=== PATIENT | male | born 1960 | race Caucasian/White ===

== ENCOUNTER 2021-09-03 09:14 | Outpatient (REF) | payer OTHER, SELFPAY ==
--- NOTE | ~2021-09-03 | XR_ITS ---
EXAMINATION: XR SHOULDER, LEFT CLINICAL INFORMATION: Left shoulder pain COMPARISON: None TECHNIQUE: AP external rotation, Grashey, scapular Y, and axillary views of the left shoulder. FINDINGS: The bones and soft tissues are normal. No fracture. Glenohumeral and acromioclavicular alignment is anatomic with normal joint space. No abnormal soft tissue calcifications. XR/XR shoulder LT min 2V IMPRESSION: Unremarkable left shoulder.
[2021-09-03 09:53] LABS: MANUAL DIFF FLAG NO
[2021-09-03 10:05] LABS: Basophils Absolute Auto 0.1 X10*3/uL (0.0-0.2); Basophils Percent Auto 1.3 % (0-2); Eosinophils Absolute Auto 0.2 X10*3/uL (0.0-0.4); Eosinophils Percent Auto 3.8 % (0-4); Hematocrit 42.1 % (42.0-52.0); Hemoglobin 14.5 g/dl (14.0-18.0); Imm Gran Abs Auto 0.02 X10*3/uL (0.00-0.03); Imm Gran Pct Auto 0.3 % (0.0-0.4); Lymphocytes Absolute Auto 1.2 X10*3/uL (1.2-4.9); Lymphocytes Percent Auto 20.3 % (20-40); Mean Corpuscular HGB Conc 34.4 g/dl (31.0-36.0); Mean Corpuscular Hemoglobin 33.2 pg (27.0-33.0); Mean Corpuscular Volume 96.3 fL (80.0-98.0); Mean Platelet Volume 9.5 fL (9.4-12.4); Monocytes Absolute Auto 0.4 X10*3/uL (0.1-1.2); Monocytes Percent Auto 6.1 % (2-11); Neutrophils Absolute Auto 4.1 x10*3/uL (2.0-8.3); Neutrophils Percent Auto 68.2 % (45-73); Platelet Count 167 X10*3/uL (160-400); Red Blood Count 4.37 X10*6/uL (4.60-5.80); Red Cell Distribution Width 12.2 % (11.0-16.0); White Blood Count 6.1 X10*3/uL (4.8-10.8)
[2021-09-03 10:28] LABS: Estimated Average Glucose 137 mg/dL; Hemoglobin A1c % 6.4 %
[2021-09-03 11:00] LABS: Appearance Urine CLEAR; Color Urine YELLOW; Glucose Urine UA NEG (NEG); Leukocyte Esterase Urine NEG (NEG); Nitrite Urine NEG (NEG); PH 5.5 (5.0-8.0); Specific Gravity - Urine >= 1.030 (1.005-1.025); Urine Blood NEG (NEG); Urine Ketones NEG (NEG); Urine Protein NEG (NEG-TRACE)
[2021-09-03 11:00] LABS: Alanine Aminotransferase 33 U/L (0-40); Albumin Level 4.6 g/dL (3.5-5.0); Alkaline Phosphatase 58 U/L (39-117); Anion Gap 16 (12-20); Aspartate Amino Transferase 27 U/L (5-37); Bilirubin Total 0.7 mg/dL (0.0-1.0); Blood Urea Nitrogen 7 mg/dL (9-16); Calcium 10.1 mg/dL (8.4-10.2); Carbon Dioxide 24 mmol/L (22-29); Chloride 103 mmol/L (96-108); Cholesterol 260 mg/dL; Estimated Glomerular Filt Rate > 60; Glucose Fasting 123 mg/dL (60-99); HDL Cholesterol 69 mg/dL; LDL Cholesterol Calculated 163 mg/dl; Potassium 4.8 mmol/L (3.3-5.1); Sodium 138 mmol/L (135-145); Total Protein 7.9 g/dL (6.5-8.0); Triglycerides 140 mg/dL
[2021-09-03 11:18] LABS: Vitamin B12 283 pg/mL (200-900)
[2021-09-03 11:22] LABS: Prostate Specific Antigen 1.35 ng/mL (<0.05-4.0)
[2021-09-03 12:22] LABS: Creatinine Urine 125.99 mg/dL; Microalbum/Creatinine Ratio Ur 22.2 ug/mg cr
== END 2021-09-03 09:15 | disposition home or self-care (01) ==
LOC: HO.XRAY 09:14
PROVIDERS: PCP Internal Medicine; Visit Provider Internal Medicine
DX: E11.9 Type 2 diabetes mellitus without complications (principal); I10 Essential (primary) hypertension; K21.9 Gastro-esophageal reflux disease without esophagitis; M25.512 Pain in left shoulder; Z12.5 Encounter for screening for malignant neoplasm of prostate
CPT/HCPCS: 36415; 73030; 80053; 80061; 81003; 82043; 82607; 83036; 84153; 85025

== ENCOUNTER 2021-09-17 13:52 | Outpatient (REF) | payer OTHER, SELFPAY ==
--- NOTE | ~2021-09-17 | XR_ITS ---
EXAMINATION: XR FOOT, BILATERAL CLINICAL INFORMATION: Assess for osteoarthritis. Degenerative changes right foot. Calcific bursitis left foot. COMPARISON: None. TECHNIQUE: 3 views each foot. FINDINGS: Right Foot: There is no visible acute fracture, dislocation or subluxation. The ankle mortise and subtalar joints are normal. There is dorsal tarsometatarsal spurring. No bony erosive changes seen. The soft tissues are normal. Left Foot: There is 1st tarsometatarsal spurring with subchondral cystic changes and loss of joint space suggestive of degenerative arthritis. The ankle mortise and subtalar joints are normal. There is a small calcification posterior to the ankle mortise likely calcific bursitis. No acute fracture or dislocations. XR/XR foot LT min 3V IMPRESSION: Mild degenerative changes right foot with dorsal tarsometatarsal spurring. Calcific bursitis left foot. Degenerative arthritic changes 1st tarsometatarsal joint. No acute fracture or dislocation in either foot.
--- NOTE | ~2021-09-17 | XR_ITS ---
EXAMINATION: XR FOOT, BILATERAL CLINICAL INFORMATION: Assess for osteoarthritis. Degenerative changes right foot. Calcific bursitis left foot. COMPARISON: None. TECHNIQUE: 3 views each foot. FINDINGS: Right Foot: There is no visible acute fracture, dislocation or subluxation. The ankle mortise and subtalar joints are normal. There is dorsal tarsometatarsal spurring. No bony erosive changes seen. The soft tissues are normal. Left Foot: There is 1st tarsometatarsal spurring with subchondral cystic changes and loss of joint space suggestive of degenerative arthritis. The ankle mortise and subtalar joints are normal. There is a small calcification posterior to the ankle mortise likely calcific bursitis. No acute fracture or dislocations. XR/XR foot RT min 3V IMPRESSION: Mild degenerative changes right foot with dorsal tarsometatarsal spurring. Calcific bursitis left foot. Degenerative arthritic changes 1st tarsometatarsal joint. No acute fracture or dislocation in either foot.
== END 2021-09-17 13:53 | disposition home or self-care (01) ==
LOC: HO.XRAY 13:52
PROVIDERS: PCP Internal Medicine; Visit Provider Internal Medicine
DX: E11.40 Type 2 diabetes mellitus with diabetic neuropathy, unspecified (principal); M21.969 Unspecified acquired deformity of unspecified lower leg
CPT/HCPCS: 73630

== ENCOUNTER → 2021-10-21 09:12 | Outpatient (BNVA) | payer OTHER, SELFPAY | PROVIDERS: PCP Internal Medicine; Visit Provider Physician Assistant | DX: M75.102 Unspecified rotator cuff tear or rupture of left shoulder, not specified as traumatic (principal); M67.919 Unspecified disorder of synovium and tendon, unspecified shoulder | CPT/HCPCS: 99202 ==

== ENCOUNTER 2021-10-21 11:18 | Emergency (ER) | payer OTHER, SELFPAY ==
--- NOTE | 2021-10-21 | ECG_ITS ---
Test Reason : dizzy Blood Pressure : / mmHG Vent. 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 rate has decreased BY 50 BPM Minimal criteria for Inferior infarct are no longer Present Non-specific change in ST segment in Inferior leads T wave amplitude has decreased in Anterior leads T wave amplitude has increased in Lateral leads Referred By: Generic ED Physician Electronically Signed By:NOREEN GUAMAN MD
--- NOTE | ~2021-10-21 | CT_ITS ---
EXAMINATION: CT HEAD WITHOUT CONTRAST CLINICAL INFORMATION: Ataxia. COMPARISON: CT head 12/03/2018 TECHNIQUE: Contiguous axial imaging was performed from the skull base to vertex without intravenous administration of contrast. This CT examination was performed using dose optimization techniques as appropriate, variously including the following: *Automated exposure control *Adjustment of mA and/or kV according to patient size (this includes techniques or standardized protocols for targeted exams where dose is matched to indication/reason for exam; i.e. extremities or head) *Use of iterative reconstruction technique DLP: 715 mGy-cm FINDINGS: There is no evidence of acute intracranial hemorrhage or territorial infarction. No abnormal mass effect or midline shift is seen. Pedraza to white matter differentiation is well preserved. No extra-axial fluid collections are identified. There is generalized global volume loss. There is moderate prominence of the ventricles and the sulci . There is mild hypodensity of the periventricular white matter due to chronic small vessel ischemic disease. There are vascular calcifications of the internal carotid arteries bilaterally. The osseous structures and soft tissues are normal. The mastoid air cells and visualized portions of the paranasal sinuses are well aerated. CT/CT head/brain wo con IMPRESSION: No acute intracranial pathology.
[2021-10-21 11:25] VITALS: BP 159/74; PULSE 88; RESP 20; TEMP 36.2; O2SAT 98; BMI 26.8
[2021-10-21 12:19] LABS: Glucose, Whole Blood 106 mg/dL (60-115)
[2021-10-21 15:18] LABS: MANUAL DIFF FLAG NO
[2021-10-21 15:23] LABS: Basophils Percent Auto 0.6 % (0-2); Eosinophils Absolute Auto 0.1 X10*3/uL (0.0-0.4); Eosinophils Percent Auto 1.8 % (0-4); Hematocrit 41.9 % (42.0-52.0); Hemoglobin 14.7 g/dl (14.0-18.0); Imm Gran Abs Auto 0.03 X10*3/uL (0.00-0.03); Imm Gran Pct Auto 0.4 % (0.0-0.4); Lymphocytes Absolute Auto 1.2 X10*3/uL (1.2-4.9); Lymphocytes Percent Auto 17.5 % (20-40); Mean Corpuscular HGB Conc 35.1 g/dl (31.0-36.0); Mean Corpuscular Hemoglobin 34.3 pg (27.0-33.0); Mean Corpuscular Volume 97.7 fL (80.0-98.0); Mean Platelet Volume 9.2 fL (9.4-12.4); Monocytes Absolute Auto 0.4 X10*3/uL (0.1-1.2); Monocytes Percent Auto 6.6 % (2-11); Neutrophils Absolute Auto 4.9 x10*3/uL (2.0-8.3); Neutrophils Percent Auto 73.1 % (45-73); Platelet Count 147 X10*3/uL (160-400); Red Blood Count 4.29 X10*6/uL (4.60-5.80); Red Cell Distribution Width 12.5 % (11.0-16.0); White Blood Count 6.7 X10*3/uL (4.8-10.8)
[2021-10-21 15:32] LABS: Anion Gap 16 (12-20); Blood Urea Nitrogen 7 mg/dL (9-16); Calcium 9.4 mg/dL (8.4-10.2); Carbon Dioxide 24 mmol/L (22-29); Chloride 99 mmol/L (96-108); Creatinine Clr Calc Pharmacy 117.9; Estimated Glomerular Filt Rate > 60; Glucose Random 89 mg/dL (60-115); Potassium 4.1 mmol/L (3.3-5.1); Sodium 135 mmol/L (135-145)
[2021-10-21 16:22] VITALS: BP 202/92; PULSE 95; RESP 18; TEMP 36.6; O2SAT 97
--- NOTE | 2021-10-21 16:24 | ED.GENADULT ---
HPI - General Adult General Chief complaint: Dizziness Stated complaint: Feet numbness/Dizzy Time Seen by Provider: 10/21/21 12:33 Source: patient Mode of arrival: ambulatory Limitations: no limitations History of Present Illness HPI narrative: Patient alcoholic drinks alcohol almost every other day , history of diabetes comes here for numbness in the feet which is also going on for long time having dizziness episode feels little off and weak patient had history of seizure about 4 years ago workup the hospital was negative and never seen a neurologist or took any medication feels little off today with nonspecific dizziness and difficulty in walking. Patient walks with walker for chronic weakness but can walk without walker also Related Data Home Medications Medication Instructions Recorded Confirmed amlodipine 5 mg tablet 5 mg PO DAILY 10/21/21 10/21/21 atorvastatin 10 mg tablet 10 mg PO DAILY 10/21/21 10/21/21 metformin 500 mg tablet 500 mg PO BID 10/21/21 10/21/21 metoprolol succinate 50 mg 50 mg PO DAILY 10/21/21 10/21/21 tablet,extended release 24 hr omeprazole 20 mg capsule,delayed 20 mg PO DAILY 10/21/21 10/21/21 release Previous Rx's Medication Instructions Recorded folic acid 1 mg tablet 1 mg PO DAILY #30 tab 10/21/21 gabapentin 300 mg capsule 300 mg PO BID #60 cap 10/21/21 thiamine HCl (vitamin B1) 50 mg 50 mg PO DAILY #30 tab 10/21/21 tablet Allergies Allergy/AdvReac Type Severity Reaction Status Date / Time bee pollen [BEE STINGS] Allergy Intermediate SWELLING Unverified 03/01/20 18:37 polyethylene glycol Allergy Unknown Verified 01/04/15 00:00 [Golytely] polyethylene glycol 3350 Allergy Unknown Verified 01/04/15 00:00 [Golytely] potassium chloride [Golytely] Allergy Unknown Verified 01/04/15 00:00 sodium [Golytely] Allergy Unknown Verified 01/04/15 00:00 sodium bicarbonate [Golytely] Allergy Unknown Verified 01/04/15 00:00 sodium chloride [Golytely] Allergy Unknown Verified 01/04/15 00:00 sodium sulfate [Golytely] Allergy Unknown Verified 01/04/15 00:00 Review of Systems Review of Systems: Yes all other systems are reviewed and are negative PMFSH Past Medical History Medical History Diabetes GERD (gastroesophageal reflux disease) Surgical History Hx of pelvic surgery Social History Social History Patient Tobacco Use Status: Never used Tobacco Advance Directives: No Advance Directives Information Provided: No Current occupational status: unemployed 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 Oriented X3. No acute distress. Eyes: PERRLA, No Nystagmus ENT: Pharynx normal. Oral Mucosa moist Neck: Normal inspection. Neck supple. CVS: Normal heart rate and rhythm. Pulses normal. Respiratory: No respiratory distress. Equal air entry bilateral, no wheezing/rales/rhonchi Abdomen: Soft and nontender. Bowel sounds are present, no mass palpable, no CVA tenderness Skin: Skin warm and dry. Normal skin color. Normal skin turgor. Extremities: No lower extremity edema. No calf tenderness Neuro: Oriented X 3. No motor deficit. No sensory deficit. 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 Result diagrams: 10/21/21 15:12 10/21/21 15:12 Labs: Lab Results 10/21/21 10/21/21 10/21/21 Range/Units 11:38 15:12 15:12 WBC 6.7 (4.8-10.8) X10*3/uL RBC 4.29 L (4.60-5.80) X10*6/uL Hgb 14.7 (14.0-18.0) g/dl Hct 41.9 L (42.0-52.0) % MCV 97.7 (80.0-98.0) fL MCH 34.3 H (27.0-33.0) pg MCHC 35.1 (31.0-36.0) g/dl RDW 12.5 (11.0-16.0) % Plt Count 147 L (160-400) X10*3/uL MPV 9.2 L (9.4-12.4) fL Immature Gran % (Auto) 0.4 (0.0-0.4) % Neut % (Auto) 73.1 H (45-73) % Lymph % (Auto) 17.5 L (20-40) % Wagoner % (Auto) 6.6 (2-11) % Eos % (Auto) 1.8 (0-4) % Baso % (Auto) 0.6 (0-2) % Lymph # (Auto) 1.2 (1.2-4.9) X10*3/uL Wagoner # (Auto) 0.4 (0.1-1.2) X10*3/uL Eos # (Auto) 0.1 (0.0-0.4) X10*3/uL Baso # (Auto) 0.0 (0.0-0.2) X10*3/uL Abs Immat Gran (auto) 0.03 (0.00-0.03) X10*3/uL Absolute Neuts (auto) 4.9 (2.0-8.3) x10*3/uL Absolute Nucleated RBC 0.000 (0.0-0.012) X10*3/uL Nucleated RBC % (auto) 0.0 (0.0-0.2) /100WBC Sodium 135 (135-145) mmol/L Potassium 4.1 (3.3-5.1) mmol/L Chloride 99 (96-108) mmol/L Carbon Dioxide 24 (22-29) mmol/L Anion Gap 16 (12-20) BUN 7 L (9-16) mg/dL Creatinine 0.74 (0.5-1.4) mg/dL Estim Creat Clear Calc 117.9 Estimated GFR > 60 POC Glucose 106 (60-115) mg/dL Random Glucose 89 (60-115) mg/dL Calcium 9.4 D (8.4-10.2) mg/dL Magnesium 1.6 (1.6-2.6) mg/dL Total Bilirubin 0.9 (0.0-1.0) mg/dL Direct Bilirubin 0.4 (0.0-0.5) mg/dL AST 26 (5-37) U/L ALT 32 (0-40) U/L Alkaline Phosphatase 64 (39-117) U/L Total Protein 7.7 (6.5-8.0) g/dL Albumin 4.5 (3.5-5.0) g/dL COVID-19 ([facility]) (Negative) COVID-19 Clin Com 10/21/21 Range/Units 17:06 WBC (4.8-10.8) X10*3/uL RBC (4.60-5.80) X10*6/uL Hgb (14.0-18.0) g/dl Hct (42.0-52.0) % MCV (80.0-98.0) fL MCH (27.0-33.0) pg MCHC (31.0-36.0) g/dl RDW (11.0-16.0) % Plt Count (160-400) X10*3/uL MPV (9.4-12.4) fL Immature Gran % (Auto) (0.0-0.4) % Neut % (Auto) (45-73) % Lymph % (Auto) (20-40) % Wagoner % (Auto) (2-11) % Eos % (Auto) (0-4) % Baso % (Auto) (0-2) % Lymph # (Auto) (1.2-4.9) X10*3/uL Wagoner # (Auto) (0.1-1.2) X10*3/uL Eos # (Auto) (0.0-0.4) X10*3/uL Baso # (Auto) (0.0-0.2) X10*3/uL Abs Immat Gran (auto) (0.00-0.03) X10*3/uL Absolute Neuts (auto) (2.0-8.3) x10*3/uL Absolute Nucleated RBC (0.0-0.012) X10*3/uL Nucleated RBC % (auto) (0.0-0.2) /100WBC Sodium (135-145) mmol/L Potassium (3.3-5.1) mmol/L Chloride (96-108) mmol/L Carbon Dioxide (22-29) mmol/L Anion Gap (12-20) BUN (9-16) mg/dL Creatinine (0.5-1.4) mg/dL Estim Creat Clear Calc Estimated GFR POC Glucose (60-115) mg/dL Random Glucose (60-115) mg/dL Calcium (8.4-10.2) mg/dL Magnesium (1.6-2.6) mg/dL Total Bilirubin (0.0-1.0) mg/dL Direct Bilirubin (0.0-0.5) mg/dL AST (5-37) U/L ALT (0-40) U/L Alkaline Phosphatase (39-117) U/L Total Protein (6.5-8.0) g/dL Albumin (3.5-5.0) g/dL COVID-19 ([facility]) Negative (Negative) COVID-19 Clin Com See Note Discharge Plan Discharge Clinical Impression: Peripheral neuropathy, Alcohol use disorder, moderate, dependence Patient Disposition: Home, Self-Care Instructions: Abuse of Alcohol (ED), Peripheral Neuropathy (ED) Additional Instructions: Stop drinking alcohol Medication as prescribed Follow-up with neurologist Prescriptions: New gabapentin 300 mg capsule 300 mg PO BID Qty: 60 0RF thiamine HCl (vitamin B1) 50 mg tablet 50 mg PO DAILY Qty: 30 0RF folic acid 1 mg tablet 1 mg PO DAILY Qty: 30 0RF No Action metformin 500 mg tablet 500 mg PO BID 0RF atorvastatin 10 mg tablet 10 mg PO DAILY 0RF amlodipine 5 mg tablet 5 mg PO DAILY 0RF omeprazole 20 mg capsule,delayed release(DR/EC) 20 mg PO DAILY 0RF metoprolol succinate 50 mg tablet extended release 24 hr 50 mg PO DAILY 0RF Referrals: Alfie Lopez MD [Physician] - 2 weeks (neuropathy)
--- NOTE | 2021-10-21 16:28 | PC.NURSE ---
upon meeting pt , pt having difficulty finding words, confused on why he is here. pt denies dizziness. 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 able to lift bother lower extremities.MD franco notified. pt huypertensive states that he took his medications this morning. denies alcohol consumption today or yesterday. denies recent falls
--- NOTE | 2021-10-21 16:37 | PC.NURSE ---
pt states, im sick of being sore when asked what brought him to ER, pt again says im sore, my shoulder, my feet all hurt. this RN asked pt again if he knows what brought him to er. pt now states he is in the ER for bloodwork
[2021-10-21 17:13] LABS: Alanine Aminotransferase 32 U/L (0-40); Albumin Level 4.5 g/dL (3.5-5.0); Alkaline Phosphatase 64 U/L (39-117); Aspartate Amino Transferase 26 U/L (5-37); Bilirubin Direct 0.4 mg/dL (0.0-0.5); Bilirubin Total 0.9 mg/dL (0.0-1.0); Magnesium 1.6 mg/dL (1.6-2.6); Total Protein 7.7 g/dL (6.5-8.0)
[2021-10-21 17:28] LABS: COVID-19 Test Negative (Negative)
[2021-10-21 17:40] VITALS: PULSE 92; RESP 12; O2SAT 98
[2021-10-21 17:45] VITALS: BP 176/100; PULSE 96; RESP 11; O2SAT 98
[2021-10-21] MEDS: Folic Acid 1 MG TABLET PO (17:49)
[2021-10-21] MEDS: Thiamine HCL 100 MG TABLET 50 MG PO (17:49)
--- NOTE | 2021-10-21 18:25 | PC.NURSE ---
pt ambulated to BR independently with steady gait, denies dizziness
[2021-10-22 05:51] LABS: Folate 15.2 ng/mL (> or = 4.0); Vitamin B12 327 pg/mL (200-900)
== END 2021-10-21 18:32 | disposition home or self-care (01) ==
PROVIDERS: Emergency Provider Internal Medicine; PCP Internal Medicine
DX: E11.42 Type 2 diabetes mellitus with diabetic polyneuropathy (principal); F10.20 Alcohol dependence, uncomplicated; Y90.9 Presence of alcohol in blood, level not specified; Z20.822 Contact with and (suspected) exposure to COVID-19
CPT/HCPCS: 36415; 70450; 80048; 80076; 82607; 82746; 82947; 83735; 85025; 87635; 93005; 99284

== ENCOUNTER 2022-05-23 14:39 | Emergency (ER) | payer OTHER, SELFPAY ==
--- NOTE | ~2022-05-23 | XR_ITS ---
EXAMINATION: BILATERAL HIPS. BILATERAL RIBS. LEFT SHOULDER. CLINICAL INFORMATION: Pain. Pain. Pain COMPARISON: None TECHNIQUE: 3 views of the hips. 5 views of the ribs and 3 views of the left shoulder. FINDINGS: Hips: Chronic changes to the bony pelvis in the region of the ischium are again seen and there is postsurgical change in the region of the sacrum and SI joints with surgical hardware intact. There is mild degenerative change in both hips but in both hips, no evidence for erosive change, fracture, dislocation or destructive lesion. Bilateral RIBS: Lungs clear. No pneumothorax. Heart and pulmonary vessels are normal. There appear to be several old healed left and right rib fractures but no evidence for an acute fracture or acute destructive process. Left shoulder: No fracture, dislocation or destructive process. XR/XR hips SYLVESTER min 3V IMPRESSION: Chronic changes noted. No evidence for an acute fracture.
--- NOTE | ~2022-05-23 | XR_ITS ---
EXAMINATION: BILATERAL HIPS. BILATERAL RIBS. LEFT SHOULDER. CLINICAL INFORMATION: Pain. Pain. Pain COMPARISON: None TECHNIQUE: 3 views of the hips. 5 views of the ribs and 3 views of the left shoulder. FINDINGS: Hips: Chronic changes to the bony pelvis in the region of the ischium are again seen and there is postsurgical change in the region of the sacrum and SI joints with surgical hardware intact. There is mild degenerative change in both hips but in both hips, no evidence for erosive change, fracture, dislocation or destructive lesion. Bilateral RIBS: Lungs clear. No pneumothorax. Heart and pulmonary vessels are normal. There appear to be several old healed left and right rib fractures but no evidence for an acute fracture or acute destructive process. Left shoulder: No fracture, dislocation or destructive process. XR/XR ribs BI min 4V w CXR1V IMPRESSION: Chronic changes noted. No evidence for an acute fracture.
--- NOTE | ~2022-05-23 | XR_ITS ---
EXAMINATION: BILATERAL HIPS. BILATERAL RIBS. LEFT SHOULDER. CLINICAL INFORMATION: Pain. Pain. Pain COMPARISON: None TECHNIQUE: 3 views of the hips. 5 views of the ribs and 3 views of the left shoulder. FINDINGS: Hips: Chronic changes to the bony pelvis in the region of the ischium are again seen and there is postsurgical change in the region of the sacrum and SI joints with surgical hardware intact. There is mild degenerative change in both hips but in both hips, no evidence for erosive change, fracture, dislocation or destructive lesion. Bilateral RIBS: Lungs clear. No pneumothorax. Heart and pulmonary vessels are normal. There appear to be several old healed left and right rib fractures but no evidence for an acute fracture or acute destructive process. Left shoulder: No fracture, dislocation or destructive process. XR/XR shoulder LT min 2V IMPRESSION: Chronic changes noted. No evidence for an acute fracture.
[2022-05-23 15:32] VITALS: BP 169/82; PULSE 88; RESP 16; TEMP 36.6; O2SAT 97; BMI 28.5
--- NOTE | 2022-05-23 16:10 | ED.FALL ---
HPI - Fall General Chief Complaint: Fall Stated Complaint: ? Fx Ribs S/P Fall 05/23/22 Time Seen by Provider: 05/23/22 16:02 Source: patient Mode of arrival: ambulatory Limitations: no limitations History of Present Illness HPI Narrative: Patient comes to the emergency room complaining of bilateral rib pain, worse on the left side. Patient states that early this morning, he was walking, tripped on a sidewalk with uneven pavement. Patient states that he fell forward, did not hit his head, did not lose consciousness, does not take any blood thinners. Patient states that he has mild bilateral hip pain, patient states he has had extensive surgery in his hips in the past. However, patient has been able to walk. Related Data Home Medications Medication Instructions Recorded Confirmed amlodipine 5 mg tablet 5 mg PO DAILY 10/21/21 10/21/21 atorvastatin 10 mg tablet 10 mg PO DAILY 10/21/21 10/21/21 metformin 500 mg tablet 500 mg PO BID 10/21/21 10/21/21 metoprolol succinate 50 mg 50 mg PO DAILY 10/21/21 10/21/21 tablet,extended release 24 hr omeprazole 20 mg capsule,delayed 20 mg PO DAILY 10/21/21 10/21/21 release Previous Rx's Medication Instructions Recorded folic acid 1 mg tablet 1 mg PO DAILY #30 tabs 10/21/21 gabapentin 300 mg capsule 300 mg PO BID #60 caps 10/21/21 thiamine HCl (vitamin B1) 50 mg 50 mg PO DAILY #30 tabs 10/21/21 tablet ibuprofen 600 mg tablet 600 mg PO TID PRN pain #14 tabs 05/23/22 Allergies Allergy/AdvReac Type Severity Reaction Status Date / Time bee pollen [BEE STINGS] Allergy Intermediate SWELLING Unverified 03/01/20 18:37 polyethylene glycol Allergy Unknown Verified 01/04/15 00:00 [Golytely] polyethylene glycol 3350 Allergy Unknown Verified 01/04/15 00:00 [Golytely] potassium chloride [Golytely] Allergy Unknown Verified 01/04/15 00:00 sodium [Golytely] Allergy Unknown Verified 01/04/15 00:00 sodium bicarbonate [Golytely] Allergy Unknown Verified 01/04/15 00:00 sodium chloride [Golytely] Allergy Unknown Verified 01/04/15 00:00 sodium sulfate [Golytely] Allergy Unknown Verified 01/04/15 00:00 Review of Systems Review of Systems: Constitutional : No Weight loss, No Fever, No Chills, No Night Sweats, No Fatigue, No Malaise ENT/Mouth : No Hearing loss, No Ear Pain, No Nasal Congestion, No Sinus Pain, No Hoarseness, No sore throat, No Rhinorrhea, No Swallowing Difficulty Eyes: No Eye Pain, No Swelling, No Redness, No Foreign Body, No Discharge, No Vision Changes Cardiovascular : No Chest Pain, No SOB, No Dyspnea on Exertion, No Orthopnea, No Edema, No Palpitations Respiratory : No Cough, No Sputum, No Wheezing, No Smoke Exposure, No Dyspnea Gastrointestinal : No Nausea, No Vomiting, No Diarrhea, No Constipation, No abdominal Pain, No Hematochezia, No Melena Genitourinary : no irregular bleeding, No Dysuria, No Urinary Frequency, No Hematuria, No Urinary Incontinence, No Urgency, No Flank Pain, No Urinary Flow Changes, No Hesitancy Musculoskeletal : Complaining of bilateral rib pain and bilateral hip pain Skin : No Skin Lesions, No rash Neuro : No Weakness, No Numbness, No Paresthesias, No Loss of Consciousness, No Dizziness, No Headache Psych : No Anxiety/Panic, No Depression, No SI/HI/AH/VH, No Social Issues, Heme/Lymph: No Bruising, No Bleeding,No Lymphadenopathy Endocrine : No Polyuria, No Polydipsia, No Temperature Intolerance PMFSH Past Medical History Medical History Diabetes GERD (gastroesophageal reflux disease) Surgical History Hx of pelvic surgery Social History Social History Patient Tobacco Use Status: Never used Tobacco Advance Directives: No Advance Directives Information Provided: No 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 Oriented X3. No acute distress. Eyes: Pupils equal, round and reactive to light. ENT: Pharynx normal. Neck: Normal inspection. Neck supple. No lymph nodes noted. No crepitus CVS: Normal heart rate and rhythm. Pulses normal. Normal S1 and S2 Respiratory: No respiratory distress. Breath sounds normal. No Wheezing. No rales Abdomen: Soft and nontender. No rigidity. No distention. Musculoskeletal: Pain to palpation on the ribs on the left side, no ecchymosis, patient able to walk steadily, able to flex and extend both hips Skin: Skin warm and dry. Normal skin color. Normal skin turgor. Extremities: No lower extremity edema. No Lacerations. No Rash Neuro: Oriented X 3. No motor deficit. No sensory deficit. Moving all extremities. No slurred speech. CN 2 through 12 grossly intact Psych: calm, cooperative, normal affect Course Course Course Narrative: X-rays of the chest/ribs, hip and shoulder to visualized by me shows chronic changes, no rib fractures, no hip fracture but there is a long screw present for previous pelvic surgery, shoulder x-ray does not show any acute fracture. Patient was given 1 dose of ibuprofen. Medical Decision Making Medical Decision Making Differential Diagnoses: Differential diagnosis (contusion, rib fx, costocondritis) Independent interpretation of EKG, rhythm strip, radiology study: Independent interp EKG,rhythm strip, radiology study My interpretation is no fracture of the shoulder, no rib fracture, no sternal fracture, no hip fracture Independent historian (e.g., spouse, EMS, friend): Independent historian (e.g., spouse, EMS, friend) Discharge Plan Discharge Clinical Impression: Contusion Patient Disposition: Home, Self-Care Instructions: Contusion in Adults (ED), Rib Contusion (ED) Additional Instructions: Please follow-up with your primary care physician tomorrow. If you have any worsening or new symptoms, please return to the emergency room or call 911 Prescriptions: New ibuprofen 600 mg tablet 600 mg PO TID PRN (Reason: pain) Qty: 14 0RF No Action gabapentin 300 mg capsule 300 mg PO BID Qty: 60 0RF thiamine HCl (vitamin B1) 50 mg tablet 50 mg PO DAILY Qty: 30 0RF folic acid 1 mg tablet 1 mg PO DAILY Qty: 30 0RF metformin 500 mg tablet 500 mg PO BID atorvastatin 10 mg tablet 10 mg PO DAILY amlodipine 5 mg tablet 5 mg PO DAILY omeprazole 20 mg capsule,delayed release(DR/EC) 20 mg PO DAILY metoprolol succinate 50 mg tablet extended release 24 hr 50 mg PO DAILY
[2022-05-23] MEDS: Ibuprofen 600 MG TABLET PO (17:15)
== END 2022-05-23 17:22 | disposition home or self-care (01) ==
PROVIDERS: Emergency Provider Emergency Medicine; PCP Internal Medicine
DX: S20.213A Contusion of bilateral front wall of thorax, initial encounter (principal); M94.0 Chondrocostal junction syndrome [Tietze]; R10.2 Pelvic and perineal pain; M25.512 Pain in left shoulder; W01.0XXA Fall on same level from slipping, tripping and stumbling without subsequent striking against object, initial encounter; Y93.9 Activity, unspecified; Y92.480 Sidewalk as the place of occurrence of the external cause; Y99.9 Unspecified external cause status; Z79.899 Other long term (current) drug therapy
CPT/HCPCS: 71111; 73030; 73522; 99283

== ENCOUNTER 2022-06-30 11:04 | Emergency (ER) | payer OTHER, SELFPAY ==
--- NOTE | ~2022-06-30 | CT_ITS ---
EXAMINATION: CT CHEST WITHOUT CONTRAST CLINICAL INFORMATION: Reevaluate rib fractures COMPARISON: X-rays earlier the same day TECHNIQUE: Multidetector volumetric CT imaging of the chest was done. Axial MIP volume rendering provided. Sagittal and coronal reformatted images were obtained. This CT examination was performed using dose optimization techniques as appropriate, variously including the following: *Automated exposure control *Adjustment of mA and/or kV according to patient size (this includes techniques or standardized protocols for targeted exams where dose is matched to indication/reason for exam; i.e. extremities or head) *Use of iterative reconstruction technique DLP: 366 mGy-cm FINDINGS: C.O.D. CLERK: Symmetrically expanded lungs. Small right pleural effusion. Right-sided rib fractures. LUNGS: The lungs are clear with no evidence of inflammation or nodules. MEDIASTINUM: The mediastinum is normal. CORONARY ARTERY CALCIFICATION: None visualized on this study. PLEURA: Small right pleural effusion. No pneumothorax. AXILLA: No lymphadenopathy. UPPER ABDOMEN: No adrenal mass. OSSEOUS STRUCTURES: Nondisplaced right anterior sixth rib fracture. Right anterolateral seventh and eighth rib fractures, mildly displaced. There are slightly comminuted displaced right posterior eighth, ninth, and 10th rib fractures. CT/CT chest wo IV con IMPRESSION: Acute right-sided rib fractures with small right pleural effusion. No pneumothorax. Fleischner guidelines were followed.
--- NOTE | ~2022-06-30 | XR_ITS ---
EXAMINATION: XR RIBS, BILATERAL CLINICAL INFORMATION: Fall, pain COMPARISON: 05/23/2022 TECHNIQUE: 3 views of the bilateral ribs were obtained. FINDINGS: Right posterior lateral eighth, ninth, and possibly 10th rib fractures appear to be new from the prior study 05/23/2022. There is a small right pleural effusion but no pneumothorax. The visualized left lung and pleural spaces are clear. Normal heart size. XR/XR ribs BI min 4V w CXR1V IMPRESSION: New right posterior lateral eighth, ninth, and possibly 10th rib fractures with a small right pleural effusion, presumably hemothorax. No pneumothorax seen.
[2022-06-30 11:32] VITALS: BP 136/80; PULSE 86; TEMP 36.9; O2SAT 98
--- NOTE | 2022-06-30 11:35 | ED_ITS ---
HPI - General Adult General Chief complaint: Back Pain/Injury Stated complaint: back pain Time Seen by Provider: 06/30/22 11:34 Source: patient Mode of arrival: ambulatory Limitations: no limitations History of Present Illness HPI narrative: Patient is a 61 year old assigned male at with a history of daily alcohol use presenting to the emergency department today with right rib pain after a fall. Patient states that he fell 11 days ago and has been having right sided rib pain ever since. Patient states that he did not hit his head with the incident or have any loss of consciousness. Patient denies any dizziness, lightheadedness, abdominal pain, nausea, vomiting, fever, chills, blurry vision, double vision, loss of vision, chest pain, difficulty breathing, shortness of breath, back pain, night sweats, pain with urination, increased urinary frequency, increased urinary urgency, blood in his urine or stool, syncope or a near syncopal episode, bowel incontinence, bladder incontinence, bowel retention, bladder retention, or any other complaints at this time. Onset (ago): day(s) (11) Location: right (ribs) Radiation: non-radiation Severity: moderate Severity scale (1-10): 4 Relieving factors: none Exacerbating factors: none Associated symptoms: denies other symptoms Treatments prior to arrival: none Related Data Home Medications Medication Instructions Recorded Confirmed amlodipine 5 mg tablet 5 mg PO DAILY 10/21/21 10/21/21 atorvastatin 10 mg tablet 10 mg PO DAILY 10/21/21 10/21/21 metformin 500 mg tablet 500 mg PO BID 10/21/21 10/21/21 metoprolol succinate 50 mg 50 mg PO DAILY 10/21/21 10/21/21 tablet,extended release 24 hr omeprazole 20 mg capsule,delayed 20 mg PO DAILY 10/21/21 10/21/21 release Previous Rx's Medication Instructions Recorded folic acid 1 mg tablet 1 mg PO DAILY #30 tabs 10/21/21 gabapentin 300 mg capsule 300 mg PO BID #60 caps 10/21/21 thiamine HCl (vitamin B1) 50 mg 50 mg PO DAILY #30 tabs 10/21/21 tablet ibuprofen 600 mg tablet 600 mg PO TID PRN pain #14 tabs 05/23/22 hydrocodone 5 mg-acetaminophen 325 1 tab PO DAILY PRN pain #7 tabs 06/30/22 mg tablet ibuprofen 800 mg tablet 800 mg PO Q8H PRN pain #14 tabs 06/30/22 Allergies Allergy/AdvReac Type Severity Reaction Status Date / Time bee pollen [BEE STINGS] Allergy Intermediate SWELLING Verified 06/30/22 11:43 polyethylene glycol Allergy Unknown Swelling Verified 06/30/22 11:43 [Golytely] polyethylene glycol 3350 Allergy Unknown Unknown Verified 06/30/22 11:43 [Golytely] potassium chloride [Golytely] Allergy Unknown Unknown Verified 06/30/22 11:43 sodium [Golytely] Allergy Unknown Unknown Verified 06/30/22 11:43 sodium bicarbonate [Golytely] Allergy Unknown Unknown Verified 06/30/22 11:43 sodium chloride [Golytely] Allergy Unknown Unknown Verified 06/30/22 11:43 sodium sulfate [Golytely] Allergy Unknown Unknown Verified 06/30/22 11:43 Review of Systems Constitutional: Constitutional: Reports no additional constitutional complaints, Denies chills, Denies fever(s) and Denies night sweats Eyes: Eyes: Reports no additional eye complaints, Denies blurry vision, Denies change in vision, Denies diplopia, Denies eye discharge, Denies loss of vision and Denies eye pain ENT: Denies dizziness Cardiovascular: Cardiovascular: Reports no additional cardiovascular complaints, Denies chest pain, Denies lightheadedness, Denies Loss of Consciousness and Denies dyspnea Respiratory: Respiratory: Reports no additional respiratory complaints and Denies dyspnea Gastrointestinal: Gastrointestinal: Reports no additional gastrointestinal complaints, Denies abdominal pain, Denies melena, Denies hematochezia, Denies change in bowel habits and Denies change in stool character Genitourinary: Genitourinary: Reports no additional male genitourinary complaints, Denies hematuria, Denies oliguria, Denies difficulty urinating, Denies dysuria, Denies urinary frequency, Denies urinary hesitancy, Denies urinary incontinence and Denies urinary urgency Musculoskeletal: Musculoskeletal: Reports no additional musculoskeletal complaints, Denies numbness and Denies tingling Comments: right rib pain Neurologic: Denies dizziness, Denies loss of vision, Denies numbness and Denies tingling Psychiatric: Psychiatric: Reports no additional psychiatric complaints Endocrine: Endocrine: Reports no additional endocrine complaints Hematologic/Lymphatic: Hematologic/Lymphatic: Reports no additional hematologic/lymphatic complaints Allergic/Immunologic: Allergic/Immunologic: Reports no additional allergic/immunologic complaints PMFSH Past Medical History Attestation statement: The following information was validated with the patient. 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 Physical Exam ED Vital Signs: Vital Signs - 24 hr 06/30/22 11:32 06/30/22 13:27 Temperature 98.5 F 98.5 F Pulse Rate 86 76 Blood Pressure 136/80 147/79 H Pulse Oximetry 98 97 Oxygen Delivery Method Room Air Room Air BMI result Body Mass Index 25.7 Const General: cooperative, no acute distress, alert and awake Nutritional Appearance: well nourished Orientation/consciousness: patient oriented x3 Limitations: no limitations HENMT Head: Yes normal to inspection and Yes atraumatic Ears: hearing grossly normal bilaterally and external ears normal General nose exam: Normal external nose present, no nasal discharge noted and no epistaxis Face and sinus: Yes normal facial exam, No abrasion and No laceration Mouth: Normal oral and palatal mucosa present, no drooling and no muffled voice Eyes General: appearance normal, both eyes and all related structures Periorbital: periorbital findings normal Eyelids: Yes eyelids normal Conjunctivae: conjunctivae normal Pupils: Equal, round and reactive pupils present EOM: EOMs intact bilaterally Neck Neck: Yes normal visual inspection, Yes full ROM and Yes no lymphadenopathy Chest Other: pain with palpation to the right chest wall Chest palpation & inspection: normal inspection of the chest Resp Effort & Inspection: normal respiratory effort and able to speak in complete sentences Auscultation: clear to auscultation bilaterally Cardio Rate: regular rate Rhythm: regular rhythm GI Inspection: Yes normal to inspection Palpation (GI): Soft to palpation, not firm, nontender, no guarding and not rigid Neuro General: patient oriented x3 and moves all extremities Cranial nerves: Yes Equal, round and reactive pupils present Cognition (Neuro): normal cognition Motor exam (neuro): 5/5 motor strength present throughout Sensory Exam: Normal double simultaneous stimulation for sensation Coordination: [id number] test normal Extrem General: Yes normal to inspection, Yes full ROM and Yes capillary refill normal Psych Appearance: grossly normal Mental Status: mental status grossly normal Affect: normal affect Attitude: cooperative Thought process: Normal thought process present Thought content: Normal thought content present Insight: Good insight present (Psych) Medications Administered Discontinued Medications Generic Name Dose Route Start Last Admin Trade Name Katherine PRN Reason Stop Dose Admin Hydrocodone Bitart/Acetaminophen 1 tab 06/30/22 12:59 06/30/22 13:30 Hydrocodone Bit/Acetam 5/325 Tablet PO 06/30/22 13:00 1 tab ONCE ONE Administration Hydromorphone HCl 1 mg 06/30/22 14:10 06/30/22 14:18 Hydromorphone Hcl 1 Mg/Ml Syringe IM 06/30/22 14:11 1 mg ONCE ONE Administration Protocol Hydromorphone HCl 1 mg 06/30/22 15:32 06/30/22 15:53 Hydromorphone Hcl 1 Mg/Ml Syringe IM 06/30/22 15:33 1 mg ONCE ONE Administration Protocol Ketorolac Tromethamine 15 mg 06/30/22 11:37 06/30/22 11:43 Ketorolac Tromethamine 15 Mg/Ml Vial IM 06/30/22 11:38 15 mg ONCE ONE Administration Medical Decision Making Medical Decision Making [facility] Narrative: Patient is a 61 year old assigned male at with a history of alcohol abuse presenting to the emergency department today with right chest wall pain. Patient's physical exam showed pain with palpation of the right chest wall. Patient's chest x-ray showed multiple right rib fractures with possible hemothorax. Patient's chest CT showed a fracture of the 6th, 7th, 8th, 9th, and 10th right ribs with a pleural effusion but no sign of pneumothorax or hemathora x. I consulted my attending phyisican, Dr. Ellison who agreed that discharge was appropriate for this patient considering the patient's pain was managed and he did not have a superimposed pneumonia. I explained my physical exam findings as well as all test results to the patient. I answered all questions asked by the patient. I stressed the importance of the patient taking his medication as prescribed. I stressed the importance of the patient following up with his primary care provider. I stressed the importance of the patient returning to the emergency department immediately if his symptoms were to worsen or if he were to develop any dizziness, shortness of breath, difficulty breathing, chest pain, blurry vision, loss of vision, nausea, vomiting, abdominal pain, fever, chills, back pain, or any other complaints. Patient verbalized agreement and understanding with this treatment plan and discharge. Differential Diagnosis Differential Diagnoses: The differential diagnosis associated with the presentation includes rib fractures Radiology Impression Discussion of test interpretation with radiology: I have reviewed the radiologist's reading. Radiologist Impression: My interpretation is in agreement with the radiologist's impression of these imaging studies. EXAMINATION: XR RIBS, BILATERAL CLINICAL INFORMATION: Fall, pain COMPARISON: 05/23/2022 TECHNIQUE: 3 views of the bilateral ribs were obtained. FINDINGS: Right posterior lateral eighth, ninth, and possibly 10th rib fractures appear to be new from the prior study 05/23/2022. There is a small right pleural effusion but no pneumothorax. The visualized left lung and pleural spaces are clear. Normal heart size. XR/XR ribs BI min 4V w CXR1V IMPRESSION: New right posterior lateral eighth, ninth, and possibly 10th rib fractures with a small right pleural effusion, presumably hemothorax. No pneumothorax seen. ? Dictated By: Rufus Vidal MD Signed By: Electronically signed by Rufus Vidal MD 06/30/22 1347 EXAMINATION: CT CHEST WITHOUT CONTRAST CLINICAL INFORMATION: Reevaluate rib fractures? COMPARISON: X-rays earlier the same day? TECHNIQUE: Multidetector volumetric CT imaging of the chest was done. Axial MIP volume rendering provided. Sagittal and coronal reformatted images were obtained.? This CT examination was performed using dose optimization techniques as appropriate, variously including the following: *Automated exposure control *Adjustment of mA and/or kV according to patient size (this includes techniques or standardized protocols for targeted exams where dose is matched to indication/reason for exam; i.e. extremities or head) *Use of iterative reconstruction technique DLP: 366 mGy-cm FINDINGS: PIANO TUNER: Symmetrically expanded lungs. Small right pleural effusion. Right-sided rib fractures. LUNGS: The lungs are clear with no evidence of inflammation or nodules. ? MEDIASTINUM: The mediastinum is normal.? CORONARY ARTERY CALCIFICATION: None visualized on this study. PLEURA: Small right pleural effusion. No pneumothorax.? AXILLA: No lymphadenopathy.? UPPER ABDOMEN: No adrenal mass.? OSSEOUS STRUCTURES: Nondisplaced right anterior sixth rib fracture. Right anterolateral seventh and eighth rib fractures, mildly displaced. There are slightly comminuted displaced right posterior eighth, ninth, and 10th rib fractures.? CT/CT chest wo IV con IMPRESSION: Acute right-sided rib fractures with small right pleural effusion. No pneumothorax. ? Fleischner guidelines were followed. Dictated By: Rufus Vidal MD Signed By: Electronically signed by Rufus Vidal MD 06/30/22 1131 Critical Care Time Critical Care Time Critical Care Time: Yes Total Critical Care Time: 30 Attestation: I spent 30 minutes of Critical Care Time with this patient. This does not include time spent on separately reported billable procedures. Discharge Plan Discharge Clinical Impression: Fractured rib Patient Disposition: Home, Self-Care Instructions: Rib Fracture (ED) Additional Instructions: Follow up with your primary care provider. Return to the emergency department immediately if your symptoms worsen or if you develop any dizziness, shortness of breath, difficulty breathing, chest pain, blurry vision, loss of vision, nausea, vomiting, abdominal pain, fever, chills, back pain, or any other complaints. Prescriptions: New hydrocodone-acetaminophen 5-325 mg tablet 1 tab PO DAILY PRN (Reason: pain) Qty: 7 0RF Rx Instructions: Partial Fill upon patient request. ibuprofen 800 mg tablet 800 mg PO Q8H PRN (Reason: pain) Qty: 14 0RF No Action ibuprofen 600 mg tablet 600 mg PO TID PRN (Reason: pain) Qty: 14 0RF gabapentin 300 mg capsule 300 mg PO BID Qty: 60 0RF thiamine HCl (vitamin B1) 50 mg tablet 50 mg PO DAILY Qty: 30 0RF folic acid 1 mg tablet 1 mg PO DAILY Qty: 30 0RF metformin 500 mg tablet 500 mg PO BID atorvastatin 10 mg tablet 10 mg PO DAILY amlodipine 5 mg tablet 5 mg PO DAILY omeprazole 20 mg capsule,delayed release(DR/EC) 20 mg PO DAILY metoprolol succinate 50 mg tablet extended release 24 hr 50 mg PO DAILY Referrals: Samuel Saldana MD [Primary Care Provider] - Interventions: ED Discharge Assessment Last Done: 06/30/22 16:18 Discharge Date/Time: 06/30/22 16:29 Print Language: Faroese
[2022-06-30 11:38] VITALS: BMI 25.7
[2022-06-30] MEDS: Ketorolac Tromethamine 15 MG/ML VIAL IM (11:43)
[2022-06-30 13:27] VITALS: BP 147/79; PULSE 76; TEMP 36.9; O2SAT 97
[2022-06-30] MEDS: HYDROcodone Bit/Acetam 5/325 TABLET 1 TAB PO (13:30)
[2022-06-30] MEDS: HYDROmorphone HCl 1 MG/ML SYRINGE IM ×2 (14:18→15:53)
== END 2022-06-30 16:29 | disposition home or self-care (01) ==
PROVIDERS: Emergency Provider Emergency Medicine; PCP Internal Medicine
DX: S22.41XA Multiple fractures of ribs, right side, initial encounter for closed fracture (principal); W19.XXXA Unspecified fall, initial encounter; E11.9 Type 2 diabetes mellitus without complications; Z79.899 Other long term (current) drug therapy; Z79.02 Long term (current) use of antithrombotics/antiplatelets; Y93.9 Activity, unspecified; Y92.9 Unspecified place or not applicable; Y99.9 Unspecified external cause status
CPT/HCPCS: 71111; 71250; 96372; 99284; J1170; J1885

== ENCOUNTER 2022-07-29 16:48 | Emergency (ER) | payer OTHER, SELFPAY ==
--- NOTE | ~2022-07-29 | XR_ITS ---
EXAMINATION: XR CHEST CLINICAL INFORMATION: History of rib fractures COMPARISON: 06/30/2022 TECHNIQUE: 2 views of the chest were obtained. FINDINGS: The heart and pulmonary vessels appear normal. No infiltrates, effusions or lung masses are seen. Healing fractures involving the 9th and 10th ribs are noted. No pneumothorax. XR/XR chest 2V IMPRESSION: No acute intrathoracic disease. Healing rib fractures.
[2022-07-29 17:23] VITALS: BP 160/75; PULSE 109; RESP 20; TEMP 37.5; O2SAT 97; BMI 28.5
--- NOTE | 2022-07-29 17:41 | ED_ITS ---
HPI - Alcohol General Chief Complaint: Psychiatric Symptoms Stated Complaint: back pain/ intoxicated? Time Seen by Provider: 07/29/22 17:37 Source: patient Mode of arrival: ambulatory History of Present Illness HPI narrative: 61-year-old male presents the emergency department with multiple complaints. he tells me he has fractured multiple ribs on both sides over the past several months states he has never been to detox he complained of back pain initially in triage but noticing that he is hallucinating he denied SI thoughts for me but told triage that he has been suicidal he denies fevers cough he does not want help with his drinking at this time. MD complaint: alcohol intoxication, alcohol withdrawal, alcohol dependence and desires rehab (refusing help with his drinking) Related Data Home Medications Medication Instructions Recorded Confirmed amlodipine 5 mg tablet 5 mg PO DAILY 10/21/21 07/29/22 atorvastatin 10 mg tablet 10 mg PO DAILY 10/21/21 07/29/22 metformin 500 mg tablet 500 mg PO BID 10/21/21 07/29/22 metoprolol succinate 50 mg 50 mg PO DAILY 10/21/21 07/29/22 tablet,extended release 24 hr omeprazole 20 mg capsule,delayed 20 mg PO DAILY 10/21/21 07/29/22 release Previous Rx's Medication Instructions Recorded folic acid 1 mg tablet 1 mg PO DAILY #30 tabs 10/21/21 thiamine HCl (vitamin B1) 50 mg 50 mg PO DAILY #30 tabs 10/21/21 tablet Allergies Allergy/AdvReac Type Severity Reaction Status Date / Time bee pollen [BEE STINGS] Allergy Intermediate SWELLING Verified 07/29/22 17:27 polyethylene glycol Allergy Unknown Swelling Verified 07/29/22 17:27 [Golytely] polyethylene glycol 3350 Allergy Unknown Unknown Verified 07/29/22 17:27 [Golytely] potassium chloride [Golytely] Allergy Unknown Unknown Verified 07/29/22 17:27 sodium [Golytely] Allergy Unknown Unknown Verified 07/29/22 17:27 sodium bicarbonate [Golytely] Allergy Unknown Unknown Verified 07/29/22 17:27 sodium chloride [Golytely] Allergy Unknown Unknown Verified 07/29/22 17:27 sodium sulfate [Golytely] Allergy Unknown Unknown Verified 07/29/22 17:27 Review of Systems Review of Systems: Review of systems: General: Patient denies any fever chills recent illness or falls Musculoskeletal: Denies back pain or body aches or other injuries HEENT: denies headache, runny nose, ear pain Respiratory: denies shortness of breath, cough Cardiovascular: no chest pain or palpitations : denies dysuria, frequency Abdomen: no nausea vomiting denies abdominal pain Extremities: no swelling, no pain Skin: no diaphoresis Yes all other systems are reviewed and are negative PMFSH Past Medical History Attestation statement: The following information was validated with the patient. 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 Physical Exam ED Vital Signs: Vital Signs - 24 hr 07/29/22 17:23 07/29/22 21:01 Temperature 99.5 F 98.2 F Pulse Rate 109 H 109 H Respiratory Rate 20 17 Blood Pressure 160/75 H 118/64 Pulse Oximetry 97 94 Oxygen Delivery Method Room Air Room Air BMI result Body Mass Index 28.5 General: Well-appearing well-nourished in no signs of distress HEENT: Normocephalic atraumatic Neck: No signs of JVD, no masses no tenderness or lymphadenopathy Cardiovascular: Regular rate and rhythm Respiratory: Clear to auscultation bilaterally Abdomen: Soft nontender no masses Extremities: Normal pedal pulses no signs of edema Skin: Dry warm no rashes Back: No tenderness full ROM Medical Decision Making Medical Decision Making MDM Narrative: I will check labs as patient he has never been here before for alcohol or psych issues. I will check LFTs and lipase I will watch the patient I am not sure what to do about his complaints of the rib fractures he does not have any pain at this time Patient is showing some signs of withdrawal given libirum and ativan and did improve. Still complaining of hallucinations. I will hold for detox placement. Differential Diagnosis Differential Diagnoses: The differential diagnosis associated with the presentation includes Acute psychosis alcohol withdrawal acute psychotic disorder UTI Admission/Observation Consideration of admission/observation: Escalation of care including admission/observation considered Lab Data MDM Lab Attestation statement: I reviewed the patient's lab results. 07/29/22 18:40 07/29/22 18:40 Labs: Lab Results 07/29/22 07/29/22 07/29/22 Range/Units 17:40 17:40 17:56 WBC (4.8-10.8) X10*3/uL RBC (4.60-5.80) X10*6/uL Hgb (14.0-18.0) g/dl Hct (42.0-52.0) % MCV (80.0-98.0) fL MCH (27.0-33.0) pg MCHC (31.0-36.0) g/dl RDW (11.0-16.0) % Plt Count (160-400) X10*3/uL MPV (9.4-12.4) fL Immature Gran % (Auto) (0.0-0.4) % Neut % (Auto) (45-73) % Lymph % (Auto) (20-40) % [place] % (Auto) (2-11) % Eos % (Auto) (0-4) % Baso % (Auto) (0-2) % Lymph # (Auto) (1.2-4.9) X10*3/uL [place] # (Auto) (0.1-1.2) X10*3/uL Eos # (Auto) (0.0-0.4) X10*3/uL Baso # (Auto) (0.0-0.2) X10*3/uL Abs Immat Gran (auto) (0.00-0.03) X10*3/uL Absolute Neuts (auto) (2.0-8.3) x10*3/uL Absolute Nucleated RBC (0.0-0.012) X10*3/uL Nucleated RBC % (auto) (0.0-0.2) /100WBC Sodium (135-145) mmol/L Potassium (3.3-5.1) mmol/L Chloride (96-108) mmol/L Carbon Dioxide (22-29) mmol/L Anion Gap (12-20) BUN (9-16) mg/dL Creatinine (0.5-1.4) mg/dL Estim Creat Clear Calc Estimated GFR POC Glucose 193 H (60-115) mg/dL Random Glucose (60-115) mg/dL Calcium (8.4-10.2) mg/dL Total Bilirubin (0.0-1.0) mg/dL Direct Bilirubin (0.0-0.5) mg/dL AST (5-37) U/L ALT (0-40) U/L Alkaline Phosphatase (39-117) U/L Total Protein (6.5-8.0) g/dL Albumin (3.5-5.0) g/dL Lipase (8-78) U/L Urine Opiates Screen Not Detected (Not Detect) Urine Fentanyl Screen Not Detected (Not Detect) Ur Barbiturates Screen POSITIVE H (Not Detect) Ur Phencyclidine Scrn Not Detected (Not Detect) Ur Amphetamines Screen Not Detected (Not Detect) U Benzodiazepines Scrn Not Detected (Not Detect) Urine Cocaine Screen POSITIVE H (Not Detect) U Marijuana (THC) Screen Not Detected (Not Detect) Ethyl Alcohol mg/dL COVID-19 (MAGNOLIA) Negative (Negative) COVID-19 Clin Com See Note 07/29/22 07/29/22 Range/Units 18:40 18:40 WBC 6.6 (4.8-10.8) X10*3/uL RBC 4.30 L (4.60-5.80) X10*6/uL Hgb 14.5 (14.0-18.0) g/dl Hct 41.1 L (42.0-52.0) % MCV 95.6 (80.0-98.0) fL MCH 33.7 H (27.0-33.0) pg MCHC 35.3 (31.0-36.0) g/dl RDW 12.2 (11.0-16.0) % Plt Count 222 D (160-400) X10*3/uL MPV 9.8 (9.4-12.4) fL Immature Gran % (Auto) 0.9 H (0.0-0.4) % Neut % (Auto) 66.7 (45-73) % Lymph % (Auto) 23.2 (20-40) % [place] % (Auto) 6.4 (2-11) % Eos % (Auto) 2.0 (0-4) % Baso % (Auto) 0.8 (0-2) % Lymph # (Auto) 1.5 (1.2-4.9) X10*3/uL [place] # (Auto) 0.4 (0.1-1.2) X10*3/uL Eos # (Auto) 0.1 (0.0-0.4) X10*3/uL Baso # (Auto) 0.1 (0.0-0.2) X10*3/uL Abs Immat Gran (auto) 0.06 H (0.00-0.03) X10*3/uL Absolute Neuts (auto) 4.4 (2.0-8.3) x10*3/uL Absolute Nucleated RBC 0.000 (0.0-0.012) X10*3/uL Nucleated RBC % (auto) 0.0 (0.0-0.2) /100WBC Sodium 135 (135-145) mmol/L Potassium 3.6 (3.3-5.1) mmol/L Chloride 100 (96-108) mmol/L Carbon Dioxide 23 (22-29) mmol/L Anion Gap 16 (12-20) BUN 9 (9-16) mg/dL Creatinine 0.74 (0.5-1.4) mg/dL Estim Creat Clear Calc 127.1 Estimated GFR > 60 POC Glucose (60-115) mg/dL Random Glucose 142 H (60-115) mg/dL Calcium 9.0 (8.4-10.2) mg/dL Total Bilirubin 0.6 (0.0-1.0) mg/dL Direct Bilirubin 0.3 (0.0-0.5) mg/dL AST 26 (5-37) U/L ALT 21 (0-40) U/L Alkaline Phosphatase 86 (39-117) U/L Total Protein 6.7 (6.5-8.0) g/dL Albumin 4.0 (3.5-5.0) g/dL Lipase 96 H (8-78) U/L Urine Opiates Screen (Not Detect) Urine Fentanyl Screen (Not Detect) Ur Barbiturates Screen (Not Detect) Ur Phencyclidine Scrn (Not Detect) Ur Amphetamines Screen (Not Detect) U Benzodiazepines Scrn (Not Detect) Urine Cocaine Screen (Not Detect) U Marijuana (THC) Screen (Not Detect) Ethyl Alcohol 186 mg/dL COVID-19 (MAGNOLIA) (Negative) COVID-19 Clin Com Independent Interpretation I performed an independent interpretation of an: Plain X-Ray Medications Administered Discontinued Medications Generic Name Dose Route Start Last Admin Trade Name Katherine PRN Reason Stop Dose Admin Acetaminophen 975 mg 07/29/22 18:46 07/29/22 19:58 Acetaminophen 325 Mg Tablet PO 07/29/22 18:47 975 mg ONCE ONE Administration Chlordiazepoxide HCl 100 mg 07/29/22 17:39 07/29/22 17:53 Chlordiazepoxide Hcl 25 Mg Capsule PO 07/29/22 17:40 100 mg ONCE ONE Administration Chlordiazepoxide HCl 100 mg 07/29/22 21:01 07/29/22 21:13 Chlordiazepoxide Hcl 25 Mg Capsule PO 07/29/22 21:02 100 mg ONCE ONE Administration Lorazepam 2 mg 07/29/22 17:39 07/29/22 17:56 Lorazepam 2 Mg/Ml Vial IM 07/29/22 17:40 Not Given STAT STA Lorazepam 2 mg 07/29/22 21:01 07/29/22 21:28 Lorazepam 1 Mg Tablet PO 07/29/22 21:02 2 mg ONCE ONE Administration Discharge Plan Discharge Clinical Impression: Alcohol abuse, Alcohol intoxication, Alcohol withdrawal Patient Disposition: Still a Patient Prescriptions: No Action thiamine HCl (vitamin B1) 50 mg tablet 50 mg PO DAILY Qty: 30 0RF folic acid 1 mg tablet 1 mg PO DAILY Qty: 30 0RF metformin 500 mg tablet 500 mg PO BID atorvastatin 10 mg tablet 10 mg PO DAILY amlodipine 5 mg tablet 5 mg PO DAILY omeprazole 20 mg capsule,delayed release(DR/EC) 20 mg PO DAILY metoprolol succinate 50 mg tablet extended release 24 hr 50 mg PO DAILY Interventions: [place]-Suicide Risk Severity Scale Last Done: 07/29/22 19:51
[2022-07-29] MEDS: chlordiazePOXIDE HCl 25 MG CAPSULE 100 MG PO ×2 (17:53→21:13)
[2022-07-29 17:59] LABS: Glucose, Whole Blood 193 mg/dL (60-115)
[2022-07-29 18:26] LABS: Amphetamine Screen Urine Not Detected (Not Detect); Barbiturates, Urine POSITIVE (Not Detect); Benzodiazepines Screen Urine Not Detected (Not Detect); Cannabinoid Screen Urine Not Detected (Not Detect); Cocaine Screen Urine POSITIVE (Not Detect); Fentanyl, urine Not Detected (Not Detect); Opiate Screen Urine Not Detected (Not Detect); Phencyclidine Screen Urine Not Detected (Not Detect)
[2022-07-29 18:30] LABS: COVID-19 Test Negative (Negative); IDNOW Serial# 16C4AD1C
--- NOTE | 2022-07-29 18:41 | PC.NURSE ---
Pt endorsing back and rib pain, reports he fell approx 6 weeks ago.
[2022-07-29 18:47] LABS: MANUAL DIFF FLAG NO
[2022-07-29 19:00] LABS: Basophils Absolute Auto 0.1 X10*3/uL (0.0-0.2); Basophils Percent Auto 0.8 % (0-2); Eosinophils Absolute Auto 0.1 X10*3/uL (0.0-0.4); Hematocrit 41.1 % (42.0-52.0); Hemoglobin 14.5 g/dl (14.0-18.0); Imm Gran Abs Auto 0.06 X10*3/uL (0.00-0.03); Imm Gran Pct Auto 0.9 % (0.0-0.4); Lymphocytes Absolute Auto 1.5 X10*3/uL (1.2-4.9); Lymphocytes Percent Auto 23.2 % (20-40); Mean Corpuscular HGB Conc 35.3 g/dl (31.0-36.0); Mean Corpuscular Hemoglobin 33.7 pg (27.0-33.0); Mean Corpuscular Volume 95.6 fL (80.0-98.0); Mean Platelet Volume 9.8 fL (9.4-12.4); Monocytes Absolute Auto 0.4 X10*3/uL (0.1-1.2); Monocytes Percent Auto 6.4 % (2-11); Neutrophils Absolute Auto 4.4 x10*3/uL (2.0-8.3); Neutrophils Percent Auto 66.7 % (45-73); Platelet Count 222 X10*3/uL (160-400); Red Cell Distribution Width 12.2 % (11.0-16.0); White Blood Count 6.6 X10*3/uL (4.8-10.8)
[2022-07-29 19:07] LABS: Alanine Aminotransferase 21 U/L (0-40); Alkaline Phosphatase 86 U/L (39-117); Anion Gap 16 (12-20); Aspartate Amino Transferase 26 U/L (5-37); Bilirubin Direct 0.3 mg/dL (0.0-0.5); Bilirubin Total 0.6 mg/dL (0.0-1.0); Blood Urea Nitrogen 9 mg/dL (9-16); Carbon Dioxide 23 mmol/L (22-29); Chloride 100 mmol/L (96-108); Creatinine Clr Calc Pharmacy 127.1; Estimated Glomerular Filt Rate > 60; Ethanol 186 mg/dL; Glucose Random 142 mg/dL (60-115); Lipase 96 U/L (8-78); Potassium 3.6 mmol/L (3.3-5.1); Sodium 135 mmol/L (135-145); Total Protein 6.7 g/dL (6.5-8.0)
[2022-07-29] MEDS: Acetaminophen 325 MG TABLET 975 MG PO (19:58)
[2022-07-29 21:01] VITALS: BP 118/64; PULSE 109; RESP 17; TEMP 36.8; O2SAT 94
[2022-07-29] MEDS: LORazepam 1 MG TABLET 2 MG PO (21:28)
[2022-07-30 06:00] VITALS: BP 147/78; PULSE 118; RESP 17; TEMP 36.6; O2SAT 97
[2022-07-30 06:12] VITALS: PULSE 98
--- NOTE | 2022-07-30 06:18 | PC.NURSE ---
Patient slept through the night, no distress observed/reported, med rec completed/pending provider's approval, CIWA @ 2057 was 17 provider/notified/ordered Librium 100 mg and Ativan 2 mg po/administered as ordered with + effect, CIWA @ 614 was 4, care consult ordered/pending evaluation in the morning, behavior non concerning, will continue to monitor.
[2022-07-30 13:05] VITALS: BP 154/96; PULSE 106; RESP 18; TEMP 36.6; O2SAT 96
[2022-07-30 14:00] VITALS: RESP 16
--- NOTE | 2022-07-30 15:06 | PC.NURSE ---
Cleared by care. seen by em from recovery for detox bedsearch.
--- NOTE | 2022-07-30 15:09 | MHC.RECOVRN ---
Addendum entered by Deb Ayala RN 07/30/22 16:49: [facility]od confirmed one current detox bed open, ATS referral faxed at 4:45pm to Vinod; ATS referral sent to Detox Coordinators at [facility]. Tax Compliance Officer to follow up on these ATS referrals. Original Note: This commercial real estate underwriter met w/ patient, patient laying in bed under blankets, awake to verbal stimuli. 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 Patient states does have hx of ETOH induced seiuzures/hallucinations. Patient reports no trial of medications for ETOH in the past. Patient has never been to treatment in the past, patient request ATS bedsearch at this time. Patient wants to stay in [facility].
[2022-07-30] MEDS: Folic Acid 1 MG TABLET PO (15:58)
[2022-07-30] MEDS: Thiamine HCL 100 MG TABLET 50 MG PO (15:58)
[2022-07-30] MEDS: Omeprazole 20 MG CAPSULE.DR PO (15:58)
[2022-07-30] MEDS: Metoprolol Succinate ER 50 MG TAB.ER.24H PO (15:59)
[2022-07-30] MEDS: Atorvastatin Calcium 10 MG TABLET PO (15:59)
[2022-07-30] MEDS: metFORMIN HCl 500 MG TABLET PO (15:59)
[2022-07-30] MEDS: amLODIPine Besylate 5 MG TABLET PO (16:00)
--- NOTE | 2022-07-31 05:47 | PC.NURSE ---
Patient slept through the night, no distress observed/reported, out of room once for bathroom use and back, gait unsteady, medication compliant, behavior non concerning, disposition is recovery team detox bed search per care team, VSS, will continue to monitor.
[2022-07-31 06:13] VITALS: BP 151/85; PULSE 84; RESP 16; TEMP 37; O2SAT 96
--- NOTE | 2022-07-31 06:17 | PC.NURSE ---
Patient slept through the night, up once reported ETOH withdrawal, CIWA assessed scored 16 @ 0327/provider notified/ordered Librium 50 mg PO and Ativan 1 mg PO/administered as ordered @ 0341 with + effect, med rec completed/pending provider's approval, care consult ordered/pending Care Team evaluation, VSS, will continue to monitor.
[2022-07-31] MEDS: Omeprazole 20 MG CAPSULE.DR PO (06:23)
[2022-07-31] MEDS: Metoprolol Succinate ER 50 MG TAB.ER.24H PO (07:06)
[2022-07-31] MEDS: Atorvastatin Calcium 10 MG TABLET PO (07:07)
[2022-07-31] MEDS: amLODIPine Besylate 5 MG TABLET PO (07:07)
[2022-07-31] MEDS: Folic Acid 1 MG TABLET PO (07:07)
[2022-07-31] MEDS: Thiamine HCL 100 MG TABLET 50 MG PO (07:07)
[2022-07-31] MEDS: metFORMIN HCl 500 MG TABLET PO ×2 (07:07→16:57)
[2022-07-31 08:28] VITALS: BP 145/79; PULSE 86; RESP 16; TEMP 36.6; O2SAT 97
--- NOTE | 2022-07-31 09:20 | PC.NURSE ---
patient awake/alert, ambulating on the unit, denies pain/discomfort at this time, pt awaiting recovery team to find detox bed, will continue to monitor
--- NOTE | 2022-07-31 11:18 | MHC.RECOVRN ---
Addendum entered by Deb Ayala RN 07/31/22 16:08: PLEASE HAVE PATIENT READY FOR REGULATORY INTERNSHIP IN FRONT OF EMERGENCY ROOM FOR 7:30AM, [facility] CONFIRMED WILL TRANSPORT PATIENT. Addendum entered by Deb Ayala RN 07/31/22 15:43: This proposal manager writer confirmed with [facility], patient has detox admission at 7:45am tomorrow 08/01/22. Samantha confirmed they will be sending transportation for patient, to be picked up by [facility] in front of Emergency Room [place] [facility] [place] 7:[place]. Original Note: This proposal manager writer commenced ATS bedsearch, referral resent to [facility], patient aware. Patient reports no ETOH withdrawal s/s at this time.
--- NOTE | 2022-07-31 17:24 | PC.NURSE ---
report received from BENJAMIN Fagan pt resting comfortably in bed no signs of acute distress notice breathing equally unlabored
[2022-07-31 20:12] VITALS: BP 152/79; PULSE 91; RESP 20; TEMP 36.2; O2SAT 97
[2022-07-31] MEDS: Acetaminophen 325 MG TABLET 975 MG PO (20:18)
[2022-08-01 01:05] VITALS: BP 148/79; PULSE 88; RESP 17; TEMP 36.6; O2SAT 96
[2022-08-01] MEDS: Omeprazole 20 MG CAPSULE.DR PO (05:32)
[2022-08-01] MEDS: amLODIPine Besylate 5 MG TABLET PO (07:01)
[2022-08-01] MEDS: Atorvastatin Calcium 10 MG TABLET PO (07:02)
[2022-08-01] MEDS: Acetaminophen 325 MG TABLET 975 MG PO (07:02)
[2022-08-01] MEDS: Thiamine HCL 100 MG TABLET 50 MG PO (07:02)
[2022-08-01] MEDS: metFORMIN HCl 500 MG TABLET PO (07:03)
[2022-08-01] MEDS: Metoprolol Succinate ER 50 MG TAB.ER.24H PO (07:03)
[2022-08-01] MEDS: Folic Acid 1 MG TABLET PO (07:03)
--- NOTE | 2022-08-01 07:06 | PC.NURSE ---
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
[2022-08-01 07:17] VITALS: BP 160/85; PULSE 77; RESP 17; TEMP 36.9; O2SAT 97
== END 2022-08-01 07:30 ==
PROVIDERS: Emergency Provider Student in an Organized Health Care Education/Training Program; PCP Internal Medicine
DX: F10.239 Alcohol dependence with withdrawal, unspecified (principal); R07.81 Pleurodynia; Y90.6 Blood alcohol level of 120-199 mg/100 ml; Z20.822 Contact with and (suspected) exposure to COVID-19; Z20.828 Contact with and (suspected) exposure to other viral communicable diseases; Z79.899 Other long term (current) drug therapy
CPT/HCPCS: 36415; 71046; 80048; 80076; 80307; 82077; 82947; 83690; 85025; 87635; 96372; 99285; S9485

== ENCOUNTER 2022-08-01 23:11 | Emergency (ER) | payer OTHER, SELFPAY ==
[2022-08-01 23:22] VITALS: BP 147/83; BP 160/83; PULSE 100; PULSE 98; RESP 16; TEMP 36.8; O2SAT 96; O2SAT 97; BMI 27.1
--- NOTE | 2022-08-01 23:56 | ED.ALCOHOL ---
HPI - Alcohol General Chief Complaint: ETOH/Substance Use Stated Complaint: withdrawl Time Seen by Provider: 08/01/22 23:29 Source: patient Mode of arrival: EMS Limitations: no limitations History of Present Illness HPI narrative: Patient alcoholic was seen here on 07/29 with alcohol level of 184 sent to [facility] on 07/31 where he stayed for [address] saying it was very cold and staff was upset with the staff hence discharged, came to the ER. Otherwise patient feels fine ambulatory no hallucinations delusions no seizures patient requesting to go to different detox tomorrow Related Data Home Medications Medication Instructions Recorded Confirmed amlodipine 5 mg tablet 5 mg PO DAILY 10/21/21 07/29/22 atorvastatin 10 mg tablet 10 mg PO DAILY 10/21/21 07/29/22 metformin 500 mg tablet 500 mg PO BID 10/21/21 07/29/22 metoprolol succinate 50 mg 50 mg PO DAILY 10/21/21 07/29/22 tablet,extended release 24 hr omeprazole 20 mg capsule,delayed 20 mg PO DAILY 10/21/21 07/29/22 release Previous Rx's Medication Instructions Recorded folic acid 1 mg tablet 1 mg PO DAILY #30 tabs 10/21/21 thiamine HCl (vitamin B1) 50 mg 50 mg PO DAILY #30 tabs 10/21/21 tablet Allergies Allergy/AdvReac Type Severity Reaction Status Date / Time bee pollen [BEE STINGS] Allergy Intermediate SWELLING Verified 07/29/22 17:27 polyethylene glycol Allergy Unknown Swelling Verified 07/29/22 17:27 [Golytely] polyethylene glycol 3350 Allergy Unknown Unknown Verified 07/29/22 17:27 [Golytely] potassium chloride [Golytely] Allergy Unknown Unknown Verified 07/29/22 17:27 sodium [Golytely] Allergy Unknown Unknown Verified 07/29/22 17:27 sodium bicarbonate [Golytely] Allergy Unknown Unknown Verified 07/29/22 17:27 sodium chloride [Golytely] Allergy Unknown Unknown Verified 07/29/22 17:27 sodium sulfate [Golytely] Allergy Unknown Unknown Verified 07/29/22 17:27 Review of Systems Review of Systems: Yes all other systems are reviewed and are negative PMFSH Past Medical History Medical History Diabetes GERD (gastroesophageal reflux disease) Surgical History Hx of pelvic surgery Social History Social History Alcohol intake: never Patient Tobacco Use Status: Never used Tobacco Smoked in Last 30 Days: No Use of substances other than those prescribed or required for medical reasons: No Advance Directives: No Current occupational status: unemployed 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 Oriented X3. No acute distress. Eyes: PERRLA, No Nystagmus ENT: Pharynx normal. Oral Mucosa moist Neck: Normal inspection. Neck supple. CVS: Normal heart rate and rhythm. Pulses normal. Respiratory: No respiratory distress. Equal air entry bilateral, no wheezing/rales/rhonchi Abdomen: Soft and nontender. Bowel sounds are present, no mass palpable, no CVA tenderness Skin: Skin warm and dry. Normal skin color. Normal skin turgor. Extremities: No lower extremity edema. No calf tenderness Neuro: Oriented X 3. No motor deficit. No sensory deficit.No cerebellar signs , cranial nerves II-XII intact Medical Decision Making Medical Decision Making MDM Narrative: Patient last alcohol intake was about 5 days ago no signs of withdrawal at this time. Patient was sent to detox where again like the staff and fought with the staff and came to the ER. advised to follow with detox as outpatient as needed. No signs of alcohol withdrawal at this time Discharge Plan Discharge Clinical Impression: Alcohol abuse Patient Disposition: Home, Self-Care Instructions: Alcohol Use Disorder (ED) Additional Instructions: Stop drinking alcohol Follow-up with detox, list is provided to you Prescriptions: No Action thiamine HCl (vitamin B1) 50 mg tablet 50 mg PO DAILY Qty: 30 0RF folic acid 1 mg tablet 1 mg PO DAILY Qty: 30 0RF metformin 500 mg tablet 500 mg PO BID atorvastatin 10 mg tablet 10 mg PO DAILY amlodipine 5 mg tablet 5 mg PO DAILY omeprazole 20 mg capsule,delayed release(DR/EC) 20 mg PO DAILY metoprolol succinate 50 mg tablet extended release 24 hr 50 mg PO DAILY Interventions: [place]-Suicide Risk Severity Scale Last Done: 08/01/22 23:30 ED Discharge Assessment Last Done: 08/02/22 00:22 Discharge Date/Time: 08/02/22 00:28
== END 2022-08-02 00:28 | disposition home or self-care (01) ==
PROVIDERS: Emergency Provider Internal Medicine; PCP Internal Medicine
DX: F10.10 Alcohol abuse, uncomplicated (principal); Y90.9 Presence of alcohol in blood, level not specified
CPT/HCPCS: 99282; 99284

== ENCOUNTER 2022-08-05 05:01 | Emergency (ER) | payer OTHER, SELFPAY ==
--- NOTE | ~2022-08-05 | XR_ITS ---
EXAMINATION: XR CHEST XR RIBS, RIGHT CLINICAL INFORMATION: Fall. Right rib injury. COMPARISON: CT chest dated 06/30/2022 TECHNIQUE: PA and lateral views of the chest were obtained. 3 views of the right hemithorax. FINDINGS: Previously seen right anterior 6th-8th rib fractures radiographically occult. Healing fracture of the right posterior 8th-10th ribs. The lungs are symmetrically expanded with normal volumes. Lungs are clear. No pleural effusion or pneumothorax. Cardiomediastinal silhouette is unremarkable. XR/XR ribs RT 2V IMPRESSION: * No acute cardiopulmonary findings * Healing right posterior 8th-10th rib fractures. * No new displaced rib fractures.
--- NOTE | ~2022-08-05 | XR_ITS ---
EXAMINATION: XR CHEST XR RIBS, RIGHT CLINICAL INFORMATION: Fall. Right rib injury. COMPARISON: CT chest dated 06/30/2022 TECHNIQUE: PA and lateral views of the chest were obtained. 3 views of the right hemithorax. FINDINGS: Previously seen right anterior 6th-8th rib fractures radiographically occult. Healing fracture of the right posterior 8th-10th ribs. The lungs are symmetrically expanded with normal volumes. Lungs are clear. No pleural effusion or pneumothorax. Cardiomediastinal silhouette is unremarkable. XR/XR chest 2V IMPRESSION: * No acute cardiopulmonary findings * Healing right posterior 8th-10th rib fractures. * No new displaced rib fractures.
[2022-08-05 06:53] VITALS: BP 153/69; PULSE 100; RESP 16; TEMP 37.2; O2SAT 99; BMI 26.6
[2022-08-05 07:56] VITALS: BP 125/69; PULSE 100; RESP 17; TEMP 36.5; O2SAT 97
--- NOTE | 2022-08-05 09:38 | ED_ITS ---
HPI - Fall General Chief Complaint: Fall Stated Complaint: fall Time Seen by Provider: 08/05/22 06:50 Source: patient Mode of arrival: ambulatory Limitations: no limitations History of Present Illness HPI Narrative: patient fell 2 days ago injuring his ribs. States that he tripped on the sidewalk. complaint: fall Onset (ago): day(s) Fall from: standing Place fall occurred: street Loss of consciousness: none Related Data Home Medications Medication Instructions Recorded Confirmed amlodipine 5 mg tablet 5 mg PO DAILY 10/21/21 07/29/22 atorvastatin 10 mg tablet 10 mg PO DAILY 10/21/21 07/29/22 metformin 500 mg tablet 500 mg PO BID 10/21/21 07/29/22 metoprolol succinate 50 mg 50 mg PO DAILY 10/21/21 07/29/22 tablet,extended release 24 hr omeprazole 20 mg capsule,delayed 20 mg PO DAILY 10/21/21 07/29/22 release Previous Rx's Medication Instructions Recorded folic acid 1 mg tablet 1 mg PO DAILY #30 tabs 10/21/21 thiamine HCl (vitamin B1) 50 mg 50 mg PO DAILY #30 tabs 10/21/21 tablet naproxen 500 mg tablet (Naprosyn) 500 mg PO BID #20 tabs 08/05/22 Allergies Allergy/AdvReac Type Severity Reaction Status Date / Time bee pollen [BEE STINGS] Allergy Intermediate SWELLING Verified 07/29/22 17:27 polyethylene glycol Allergy Unknown Swelling Verified 07/29/22 17:27 [Golytely] polyethylene glycol 3350 Allergy Unknown Unknown Verified 07/29/22 17:27 [Golytely] potassium chloride [Golytely] Allergy Unknown Unknown Verified 07/29/22 17:27 sodium [Golytely] Allergy Unknown Unknown Verified 07/29/22 17:27 sodium bicarbonate [Golytely] Allergy Unknown Unknown Verified 07/29/22 17:27 sodium chloride [Golytely] Allergy Unknown Unknown Verified 07/29/22 17:27 sodium sulfate [Golytely] Allergy Unknown Unknown Verified 07/29/22 17:27 Review of Systems Review of Systems: Yes all other systems are reviewed and are negative Neurologic: Denies Sensory deficit (Neuro) PMFSH Past Medical History Medical History Diabetes GERD (gastroesophageal reflux disease) Surgical History Hx of pelvic surgery Social History Social History Alcohol intake: current Alcohol intake frequency: a few times a week Alcohol type: beer Patient Tobacco Use Status: Never used Tobacco Smoked in Last 30 Days: No Use of substances other than those prescribed or required for medical reasons: No Advance Directives: No Advance Directives Information Provided: Yes Current occupational status: unemployed 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 Physical Exam Vital Signs: Vital Signs: Last Vital Signs Temp 97.8 F 08/05/22 11:23 Pulse 98 08/05/22 11:23 Resp 16 08/05/22 11:23 BP 129/65 08/05/22 11:23 Pulse Ox 98 08/05/22 11:23 O2 Del Method 08/05/22 11:23 BMI result Body Mass Index 26.6 Const: Other: patient is older than stated age, chronically ill appearing Nutritional Appearance: average body habitus Orientation/consciousness: oriented to person Limitations: no limitations HEENT: Head: Yes normal to inspection Ears: external ears normal General nose exam: Normal external nose present Mouth: Normal oral and palatal mucosa present and oropharynx normal Throat: Yes posterior oropharynx normal Eyes: General: appearance normal, both eyes and all related structures Neck: Other: supple Neck: Yes normal visual inspection Chest: Other: right lateral chest pain to palpation Resp: Auscultation: clear to auscultation bilaterally Cardio: Jugular venous distension: no JVD Rate: regular rate Rhythm: regular rhythm Heart sounds: S1 normal heart sound present and S2 normal heart sound present GI: Inspection: Yes normal to inspection Palpation (GI): Soft to palpation, nontender and No hepatosplenomegaly present Auscultation: normal bowel sound s : General: Yes no CVA tenderness Back/Spine/Pelvis: Back: no CVA tenderness Skin: General skin exam: no rashes or lesions noted Neuro: General: oriented to person Cranial nerves: Yes CN's II-XII intact bilaterally Motor exam (neuro): 5/5 motor strength present throughout Sensory Exam: No Sensory deficit (Neuro) Extrem: General: Yes normal to inspection Psych: Appearance: grossly normal Course Reevaluation(s) Reevaluation #1: no acute fractures will dc home Time: 13:02 Medical Decision Making Differential Diagnosis Differential Diagnoses: The differential diagnosis associated with the presentation includes (rib fracture, ptx, chest contusion) Independent Interpretation I performed an independent interpretation of an: Plain X-Ray (old right fractures) Discharge Plan Discharge Clinical Impression: Chest wall contusion Patient Disposition: Home, Self-Care Instructions: Contusion in Adults (ED), Rib Contusion (ED) Prescriptions: New naproxen [Naprosyn] 500 mg tablet 500 mg PO BID Qty: 20 0RF No Action thiamine HCl (vitamin B1) 50 mg tablet 50 mg PO DAILY Qty: 30 0RF folic acid 1 mg tablet 1 mg PO DAILY Qty: 30 0RF metformin 500 mg tablet 500 mg PO BID atorvastatin 10 mg tablet 10 mg PO DAILY amlodipine 5 mg tablet 5 mg PO DAILY omeprazole 20 mg capsule,delayed release(DR/EC) 20 mg PO DAILY metoprolol succinate 50 mg tablet extended release 24 hr 50 mg PO DAILY Referrals: Samuel Saldana MD [Primary Care Provider] - 1 week
[2022-08-05 11:23] VITALS: BP 129/65; PULSE 98; RESP 16; TEMP 36.6; O2SAT 98
--- NOTE | 2022-08-05 11:33 | PC.NURSE ---
pt sleeping, wakes to verbal stimuli. Pt reports generalized pain all over but then specified right rib pain after his fall on the sidewalk. Pt cites reduced foot sensation due to diabetes which has caused him to feel unsteady recently. +1 pedal and post tib pulses palpable bilaterally.
[2022-08-05 14:00] VITALS: BP 136/66; PULSE 96; RESP 16; TEMP 36.5; O2SAT 98
--- NOTE | 2022-08-05 14:03 | PC.NURSE ---
this nurse went to discharge the patient, pt states he now wants detox, will notify provider
--- NOTE | 2022-08-05 14:53 | PC.NURSE ---
patient ambulated with a steady gait to bathroom, pt wanting detox- Em notified pt moved to [facility].
--- NOTE | 2022-08-05 15:10 | MHC.RECOVRN ---
This typewriter tester met w/ patient, patient requesting detox at this time. Patient reports drinking 4, 24 oz beers daily; patient reports drinking approximately 4 beers that day. Patient states age of first use 17 years old, reports years of daily drinking with intermittent periods of drinking several times per week. Patient requesting detox at this time, willing to go to [facility] for care. Patient reports 1 x history of detox, most recently at [facility]. Patient does not want to go back to [facility], willing to go to other facilities. T/W to begin ATS bedsearch process.
--- NOTE | 2022-08-05 16:43 | PC.NURSE ---
pt moved to pod while Em continues to look for detox bed
[2022-08-05] MEDS: NaPROXEN 500 MG TABLET PO (16:58)
[2022-08-05 17:14] LABS: COVID-19 Test Negative (Negative); IDNOW Serial# 16C4AD1C
[2022-08-05 17:39] VITALS: BP 124/68; PULSE 103; RESP 18; TEMP 36.9; O2SAT 96
[2022-08-06] MEDS: NaPROXEN 500 MG TABLET PO (03:54)
--- NOTE | 2022-08-06 03:59 | PC.NURSE ---
Patient reported ribs pain 5/10, Naproxen 500 mg administered pending effect, no other distress observed/reported, slept through the night, disposition per recovery team is detox bed search, VSS, behavior non concerning, will continue to monitor.
[2022-08-06 08:42] VITALS: BP 122/75; PULSE 106; RESP 16; TEMP 37.1; O2SAT 95
[2022-08-06] MEDS: metFORMIN HCl 500 MG TABLET PO (09:36)
[2022-08-06] MEDS: amLODIPine Besylate 5 MG TABLET PO (09:36)
[2022-08-06] MEDS: Atorvastatin Calcium 10 MG TABLET PO (09:36)
[2022-08-06] MEDS: Metoprolol Succinate ER 50 MG TAB.ER.24H PO (09:36)
[2022-08-06] MEDS: Omeprazole 20 MG CAPSULE.DR PO (09:36)
[2022-08-06] MEDS: Thiamine HCL 100 MG TABLET 50 MG PO (09:36)
[2022-08-06] MEDS: Folic Acid 1 MG TABLET PO (09:36)
--- NOTE | 2022-08-06 10:10 | PC.NURSE ---
Pt walking around community area. Did intake with [facility]. Given snack
--- NOTE | 2022-08-06 11:15 | PC.NURSE ---
Spoke with Carmen at [facility]. She will call Em back
--- NOTE | 2022-08-06 11:35 | MHC.RECOVRN ---
Patient had phone intake with [facility], [facility] reports patient does not meet level of care, as patient is not scoring on the CIWA, nor receiving any medications for withdrawal, nor reporting any s/s of withdrawal. Patient denied at Detox. This sheet writer reviewed [facility] level of care with patient, provided contact information to [facility], provided information to [place] for [place], [facility] in the area. Reviewed w/ patient to follow up with information provided, from the community. Patient verbalized understanding. Provider aware. Report given to Emily ALEXANDER.
== END 2022-08-06 14:07 | disposition home or self-care (01) ==
PROVIDERS: Emergency Provider Emergency Medicine; PCP Internal Medicine
DX: S20.211A Contusion of right front wall of thorax, initial encounter (principal); W10.1XXA Fall (on)(from) sidewalk curb, initial encounter; R60.0 Localized edema; E11.9 Type 2 diabetes mellitus without complications; Z20.822 Contact with and (suspected) exposure to COVID-19; Z79.899 Other long term (current) drug therapy; Z79.02 Long term (current) use of antithrombotics/antiplatelets; Z79.84 Long term (current) use of oral hypoglycemic drugs; Y93.01 Activity, walking, marching and hiking; Y92.414 Local residential or business street as the place of occurrence of the external cause; Y99.9 Unspecified external cause status
CPT/HCPCS: 71046; 71100; 87635; 99284

== ENCOUNTER 2022-08-06 20:55 | Emergency (ER) | payer OTHER, SELFPAY ==
--- NOTE | ~2022-08-06 | XR_ITS ---
EXAMINATION: XR HAND/WRIST, RIGHT XR HAND/WRIST, LEFT CLINICAL INFORMATION: Wrist pain following fall on outstretched hand. COMPARISON: None TECHNIQUE: PA, lateral, and oblique views of the each hand and wrist. FINDINGS: RIGHT HAND/WRIST: No acute fracture. Bone mineralization appears normal. There is loss of the normal first and second carpal arcs at the lunotriquetral articulation. Additionally, there is a scapholunate angle of 25 degrees and a capitolunate angle of 60 degrees. These findings are concerning for a volar intercalated segment instability deformity. Minimal osteoarthritis in the interphalangeal joints of the hand. Soft tissues are unremarkable. LEFT HAND/WRIST: No fracture or malalignment. Mild soft tissue swelling around the small finger MCP joint. No erosions. There is mild to moderate osteoarthritis thumb IP joint and more mild osteoarthritis in other interphalangeal joints. Proximal carpal row alignment is normal. XR/XR hand wrist LT IMPRESSION: 1. No acute fracture in the hands and wrists. 2. 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 Consider correlation with physical exam and MRI of the wrist if warranted. 3. 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
--- NOTE | ~2022-08-06 | CT_ITS ---
EXAMINATION: CT CHEST, ABDOMEN AND PELVIS WITHOUT CONTRAST CLINICAL INFORMATION: Bilateral rib pain after fall, question abdominal trauma COMPARISON: 06/30/2022 TECHNIQUE: Multidetector volumetric imaging was performed from the thoracic inlet through the pubic symphysis. Sagittal and coronal reformatted images were obtained on the technologist's workstation. Axial MIP volume rendering provided. This CT examination was performed using dose optimization techniques as appropriate, variously including the following: *Automated exposure control *Adjustment of mA and/or kV according to patient size (this includes techniques or standardized protocols for targeted exams where dose is matched to indication/reason for exam; i.e. extremities or head) *Use of iterative reconstruction technique DLP: 935 mGy-cm FINDINGS: CHEST: Lungs: No regions of consolidation bilaterally. Trace dependent atelectasis bilaterally. Mediastinum: The visualized thyroid gland is unremarkable. There are subcentimeter mediastinal lymph nodes within the range of normal variation. Cardiac size is within normal limits; no pericardial effusion. Minimal calcification along the aorta. Coronary Artery Calcification: None visualized on this study. Pleura: There is no significant effusion. No pleural mass or thickening. Chest Wall/Axilla: Unremarkable. ABDOMEN/PELVIS: Liver, Gallbladder, Biliary Tree: The liver is normal in size, shape, and attenuation. No focal hepatic lesion or biliary ductal dilatation is identified. Gallbladder appears partially contracted. Pancreas: Unremarkable. Spleen: Unremarkable. Adrenal Glands: Unremarkable. Kidneys and Ureters: The kidneys are normal in size, shape, and attenuation. No hydronephrosis or hydroureter or calculi seen. Nonspecific mild bilateral perinephric stranding. Bladder: Unremarkable. Gastrointestinal Tract: No evidence of bowel obstruction or significant wall thickening. The appendix is unremarkable. No free fluid or free air is seen. Abdominal Wall: No significant hernia is demonstrated. Lymphovascular Structures: Lymph nodes: Normal. Vascular: Moderate atherosclerotic calcifications. Pelvic Viscera: Unremarkable. OSSEOUS STRUCTURES: There is a minimally displaced acute fracture of the anterior right sixth rib. There are multiple bilateral healing subacute rib fractures along with a few chronic appearing rib deformities from healed old injury. Degenerative changes are noted in the spine. Screw is present traversing the bilateral sacroiliac joints. Multiple healed and chronic pelvic fractures are noted. Bilateral L5 pars defects are present. CT/CT abdomen pelvis wo IV con IMPRESSION: 1. Minimally displaced acute fracture of the anterior right sixth rib. 2. Multiple bilateral healing subacute rib fractures along with a few chronic appearing deformities from healed old injury. 3. No additional acute traumatic findings identified in the chest, abdomen, or pelvis.
--- NOTE | ~2022-08-06 | CT_ITS ---
EXAMINATION: NONCONTRAST HEAD CT NONCONTRAST MAXILLOFACIAL CT NONCONTRAST CERVICAL SPINE CT INDICATION INFORMATION: Fall with facial strike COMPARISON: Head CT 10/21/2021, cervical spine CT 01/02/2019 TECHNIQUE: Separate noncontrast CT examinations of the head, maxillofacial bones, and cervical spine were performed. Coronal and sagittal images were created for each examination at the technologist workstation. This CT examination was performed using dose optimization techniques as appropriate, variously including the following: *Automated exposure control *Adjustment of mA and/or kV according to patient size (this includes techniques or standardized protocols for targeted exams where dose is matched to indication/reason for exam; i.e. extremities or head) *Use of iterative reconstruction technique DLP: 1422 mGy-cm FINDINGS: HEAD: No intra or extra-axial fluid collection, hemorrhage, or mass. No midline shift or herniation. Basal cisterns are patent. Pedraza-white matter differentiation is maintained. No territorial encephalomalacia.. No hydrocephalus. Proportional prominence of the ventricles and sulcal spaces is consistent with moderate volume loss. . Minimal periventricular white matter hypoattenuation bilaterally, nonspecific. Mild right posterior scalp swelling or scarring noted.. No calvarial fracture. The mastoid air cells are well aerated. MAXILLOFACIAL: No acute facial bone fractures are seen. Mild angular deformity of the process of the left maxilla consistent with prior fracture, exact acuity uncertain. Overlying soft tissue swelling. There is deformity of the medial left orbital wall consistent with prior remote orbital blowout fracture. Minimal lobulated mucosal thickening along the floor the right maxillary sinus and within a few left ethmoid air cells. The mandibular heads are normally positioned in the glenoid fossa. Multiple dental caries noted. Additional low extensive. No lucency surrounds the root of the right mandibular lateral incisor. The orbits demonstrate a normal appearance bilaterally. The globes are intact. No evidence of retrobulbar hemorrhage. There is mild subcutaneous edema overlying the left cheek. CERVICAL SPINE: Alignment:Normal. No subluxation. Vertebra:No acute fracture. No prevertebral soft tissue swelling. Degenerative disc disease:Multilevel degenerative disc disease most advanced at C5-C6 and C7-T1 with moderate disc height loss at these levels, endplate sclerosis and proliferative change. Advanced multilevel facet arthrosis. Prominent cystic and/or chronic erosive change at the right C7-T1 facet. Other findings:No cervical lymphadenopathy. Visualized thyroid gland is unremarkable. Visualized base of the brain is grossly unremarkable. Visualized lung apices are clear. CT/CT cervical spine wo IV con IMPRESSION: 1. No intracranial hemorrhage or calvarial fracture. 2. No acute facial bone fracture. 3. Mild angular deformity of the left nasal process of the maxilla consistent with prior fracture, exact acuity uncertain though likely chronic. 4. Remote left medial orbital wall blowout fracture. 5. No traumatic subluxation or acute cervical spine fracture.
--- NOTE | ~2022-08-06 | XR_ITS ---
EXAMINATION: XR HAND/WRIST, RIGHT XR HAND/WRIST, LEFT CLINICAL INFORMATION: Wrist pain following fall on outstretched hand. COMPARISON: None TECHNIQUE: PA, lateral, and oblique views of the each hand and wrist. FINDINGS: RIGHT HAND/WRIST: No acute fracture. Bone mineralization appears normal. There is loss of the normal first and second carpal arcs at the lunotriquetral articulation. Additionally, there is a scapholunate angle of 25 degrees and a capitolunate angle of 60 degrees. These findings are concerning for a volar intercalated segment instability deformity. Minimal osteoarthritis in the interphalangeal joints of the hand. Soft tissues are unremarkable. LEFT HAND/WRIST: No fracture or malalignment. Mild soft tissue swelling around the small finger MCP joint. No erosions. There is mild to moderate osteoarthritis thumb IP joint and more mild osteoarthritis in other interphalangeal joints. Proximal carpal row alignment is normal. XR/XR hand wrist RT IMPRESSION: 1. No acute fracture in the hands and wrists. 2. 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 Consider correlation with physical exam and MRI of the wrist if warranted. 3. 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
[2022-08-06 21:40] LABS: MANUAL DIFF FLAG NO
[2022-08-06 21:42] VITALS: BP 108/72; PULSE 88; RESP 18; TEMP 36.4; O2SAT 98; BMI 27.1
[2022-08-06 21:45] LABS: Basophils Absolute Auto 0.1 X10*3/uL (0.0-0.2); Basophils Percent Auto 1.3 % (0-2); Eosinophils Absolute Auto 0.2 X10*3/uL (0.0-0.4); Eosinophils Percent Auto 3.4 % (0-4); Hematocrit 42.1 % (42.0-52.0); Hemoglobin 14.4 g/dl (14.0-18.0); Imm Gran Abs Auto 0.01 X10*3/uL (0.00-0.03); Imm Gran Pct Auto 0.2 % (0.0-0.4); Lymphocytes Absolute Auto 1.5 X10*3/uL (1.2-4.9); Mean Corpuscular HGB Conc 34.2 g/dl (31.0-36.0); Mean Corpuscular Hemoglobin 33.7 pg (27.0-33.0); Mean Corpuscular Volume 98.6 fL (80.0-98.0); Mean Platelet Volume 9.8 fL (9.4-12.4); Monocytes Absolute Auto 0.4 X10*3/uL (0.1-1.2); Monocytes Percent Auto 7.6 % (2-11); Neutrophils Absolute Auto 3.1 x10*3/uL (2.0-8.3); Neutrophils Percent Auto 58.5 % (45-73); Platelet Count 187 X10*3/uL (160-400); Red Blood Count 4.27 X10*6/uL (4.60-5.80); Red Cell Distribution Width 12.3 % (11.0-16.0); White Blood Count 5.3 X10*3/uL (4.8-10.8)
[2022-08-06 21:55] LABS: Alanine Aminotransferase 24 U/L (0-40); Alkaline Phosphatase 74 U/L (39-117); Anion Gap 12 (12-20); Aspartate Amino Transferase 23 U/L (5-37); Bilirubin Direct < 0.2 mg/dL (0.0-0.5); Bilirubin Total 0.4 mg/dL (0.0-1.0); Blood Urea Nitrogen 10 mg/dL (9-16); Calcium 9.1 mg/dL (8.4-10.2); Carbon Dioxide 26 mmol/L (22-29); Chloride 106 mmol/L (96-108); Creatinine Clr Calc Pharmacy 128.6; Estimated Glomerular Filt Rate > 60; Ethanol 116 mg/dL; Glucose Random 101 mg/dL (60-115); Magnesium 1.9 mg/dL (1.6-2.6); Potassium 3.6 mmol/L (3.3-5.1); Sodium 140 mmol/L (135-145); Total Protein 6.8 g/dL (6.5-8.0)
--- NOTE | 2022-08-06 23:50 | ED_ITS ---
HPI - Fall General Chief Complaint: Fall <REBECCA Aceves Last Filed: 08/07/22 00:01> Stated Complaint: ETOH with fall <REBECCA Aceves Last Filed: 08/07/22 00:01> Time Seen by Provider: 08/06/22 23:32 <REBECCA Aceves Last Filed: 08/07/22 00:01> Source: patient <REBECCA Aceves Last Filed: 08/07/22 00:01> Mode of arrival: ambulatory <REBECCA Aceves Last Filed: 08/07/22 00:01> Limitations: other (Alcohol intoxication) <REBECCA Aceves Last Filed: 08/07/22 00:01> History of Present Illness HPI Narrative: This is a 61-year-old male history of alcohol abuse presenting to the emergency department with complaints of bilateral rib pain, bilateral hand and wrist pain, headache status post trip and fall, a bystander to call 911 at after seeing patient on the sidewalk on concrete. Patient reports drinking alcohol earlier today, he states his last drink was this morning however patient poor historian. He tells me when he fell he is head, did not lose consciousness, not on blood thinners. Patient does report a slight headache feels like his typical without vision changes or dizziness. Denies any other drugs. Patient uncooperative for EMS and declined cervical collar in vital signs. Patient denies vision changes, dizziness, weakness, nausea, vomiting, headache, vision changes, dizziness, shortness of breath, chest pain. To note there is no preceding symptoms to fall. It was a mechanical trip and fall per patient. <REBECCA Aceves Last Filed: 08/07/22 00:01> Related Data Home Medications: Home Medications Medication Instructions Recorded Confirmed amlodipine 5 mg tablet 5 mg PO DAILY 10/21/21 08/05/22 atorvastatin 10 mg tablet 10 mg PO DAILY 10/21/21 08/05/22 metformin 500 mg tablet 500 mg PO BID 10/21/21 08/05/22 metoprolol succinate 50 mg 50 mg PO DAILY 10/21/21 08/05/22 tablet,extended release 24 hr omeprazole 20 mg capsule,delayed 20 mg PO DAILY 10/21/21 08/05/22 release Previous Rx's Medication Instructions Recorded folic acid 1 mg tablet 1 mg PO DAILY #30 tabs 10/21/21 thiamine HCl (vitamin B1) 50 mg 50 mg PO DAILY #30 tabs 10/21/21 tablet naproxen 500 mg tablet (Naprosyn) 500 mg PO BID #20 tabs 08/05/22 <REBECCA Aceves Last Filed: 08/07/22 00:01> Allergies/Adverse Reactions: Allergies Allergy/AdvReac Type Severity Reaction Status Date / Time bee pollen [BEE STINGS] Allergy Intermediate SWELLING Verified 08/06/22 21:42 polyethylene glycol Allergy Unknown Swelling Verified 08/06/22 21:42 [Golytely] polyethylene glycol 3350 Allergy Unknown Unknown Verified 08/06/22 21:42 [Golytely] potassium chloride [Golytely] Allergy Unknown Unknown Verified 08/06/22 21:42 sodium [Golytely] Allergy Unknown Unknown Verified 08/06/22 21:42 sodium bicarbonate [Golytely] Allergy Unknown Unknown Verified 08/06/22 21:42 sodium chloride [Golytely] Allergy Unknown Unknown Verified 08/06/22 21:42 sodium sulfate [Golytely] Allergy Unknown Unknown Verified 08/06/22 21:42 <REBECCA Aceves Last Filed: 08/07/22 00:01> Review of Systems Review of Systems: Constitutional : No Weight loss, No Fever, No Chills, No Fatigue, No Malaise ENT/Mouth : No sore throat, No Rhinorrhea Eyes: No Eye Pain, No Swelling, No Redness Cardiovascular : No Chest Pain, No SOB, No Dyspnea on Exertion, No Orthopnea, No Edema, No Palpitations Respiratory : No Cough, No Sputum, No Wheezing Gastrointestinal : No Nausea, No Vomiting, No Diarrhea, No Constipation, No abdominal Pain, No Hematochezia, No Melena Genitourinary : No Dysuria, No Urinary Frequency, No Hematuria, Musculoskeletal : + joint pain, No Myalgias, No Joint Swelling, + rib pain Skin : No Skin Lesions, No rash Neuro : No Weakness, No Numbness, No Dizziness, +No Headache Psych : No Anxiety/Panic, No Depression All other systems reviewed and are negative <REBECCA Aceves Last Filed: 08/07/22 00:01> Yes all other systems are reviewed and are negative <REBECCA Aceves - Last Filed: 08/07/22 00:01> [facility] Past Medical History Attestation statement: The following information was validated with the patient. <REBECCA Aceves - Last Filed: 08/07/22 00:01> Source: old records reviewed and nursing notes reviewed <REBECCA Aceves - Last Filed: 08/07/22 00:01> Medical History: Medical History Diabetes GERD (gastroesophageal reflux disease) <REBECCA Aceves - Last Filed: 08/07/22 00:01> Surgical History: Surgical History Hx of pelvic surgery <REBECCA Aceves - Last Filed: 08/07/22 00:01> Social History Social History: Social History Alcohol intake: current Alcohol intake frequency: a few times a week Alcohol type: beer Patient Tobacco Use Status: Never used Tobacco Advance Directives: No Advance Directives Information Provided: No Current occupational status: unemployed 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 <REBECCA Aceves - Last Filed: 08/07/22 00:01> Physical Exam Vital Signs: Vital Signs: Last Vital Signs Temp 97.7 F 08/07/22 06:10 Pulse 90 08/07/22 06:10 Resp 08/07/22 06:10 BP 146/75 H 08/07/22 06:10 Pulse Ox 98 08/07/22 06:10 O2 Del Method 08/07/22 06:10 BMI result Body Mass Index 27.1 vss <REBECCA Aceves - Last Filed: 08/07/22 00:01> Vital Signs: Last Vital Signs Temp 97.7 F 08/07/22 06:10 Pulse 90 08/07/22 06:10 Resp 08/07/22 06:10 BP 146/75 H 08/07/22 06:10 Pulse Ox 98 08/07/22 06:10 O2 Del Method 08/07/22 06:10 BMI result Body Mass Index 27.1 <Reynold Clark MD - Last Filed: 08/07/22 10:46> Appearance: Alert.? Oriented X3.? No acute distress.? Patient unkempt. Smells like alcohol. Head: Normocephalic, atraumatic, no step-offs or deformities + small abrasion to L cheek. No evidence of broken teeth on exam. Eyes: Pupils equal, round and reactive to light.? Extraocular movements intact ENT: Pharynx normal.? Neck: Normal inspection.? Neck supple.? CVS: Normal heart rate and rhythm.? Pulses normal.? Pain with palpation of anterior chest wall throughout. Respiratory: No respiratory distress.? Breath sounds normal.? Abdomen: Soft and nontender.? Skin: Skin warm and dry.? Normal skin color.? Normal skin turgor.? Abrasions to bilateral hands on the dorsal aspect Extremities: No lower extremity edema.? No calf ttp. 5/5 strength to bilateral upper and lower extremities. Full range of motion pain-free to bilateral wrist and hand. No pain with palpation over anatomical snuffbox. 2+ radial pulses equal bilateral. No wrist drop. Back: No midline tenderness, no C-spine tenderness, full range of motion, no CV A tenderness bilaterally Neuro: Oriented X 3.? No motor deficit.? No sensory deficit. CN 2-12 intact . Normal [id number], [id number], ambulatory with steady gait normal coordination. Negative Romberg and pronator drift. Normal [id number]. Normal rapid alternating movements GCS 15 NIH stroke scale 0 <REBECCA Aceves - Last Filed: 08/07/22 00:01> Course Reevaluation(s) Reevaluation #1: CBC appears to be around patient's baseline. Chemistry with no acute findings requiring intervention. Ethanol level 116. CT of cervical spine with no intracranial hemorrhage or clavicular fracture. No acute facial bone fracture. Mild angular deformity of the left knee nasal process of the maxilla appears to be old, no acute findings. No pain with palpation overlying this area. There is a remote left medial orbital wall blowout fracture again this is not an acute finding. I do not suspect this is from the small. Extraocular movements intact no signs of nerve entrapment. CT of the chest, abdomen and pelvis pending. <REBECCA Aceves - Last Filed: 08/07/22 00:01> Time: 00:00 <REBECCA Aceves - Last Filed: 08/07/22 00:01> Reevaluation #2: Patient is seeking detox. <REBECCA Aceves - Last Filed: 08/07/22 00:01> Time: 00:00 <REBECCA Aceves - Last Filed: 08/07/22 00:01> Reevaluation #3: Patient was evaluated by addiction services. Patient is not currently a candidate for detox. Community resources been made available to the patient including a list of shelters, recovery support etc.. Transportation will be provided for the patient. <Reynold Calrk MD - Last Filed: 08/07/22 10:46> Time: 10:45 <Reynold Clark MD - Last Filed: 08/07/22 10:46> Medical Decision Making Medical Decision Making MDM Narrative: 61-year-old male history of alcohol abuse presents status post trip and fall, no preceding symptoms reporting bilateral wrist pain, bilateral rib pain, headache, there is a head strike without loss of consciousness, patient not on blood thinners. Tells me his last drink was this morning however poor historian Physical examination small abrasions to bilateral hands, left cheek, patient unkempt and smells like alcohol. Pain with palpation of anterior chest wall throughout. No signs of flail chest or pneumothorax. Breath sounds clear. Abdomen soft nontender nondistended. Neuro exam nonfocal. Likely contusion to chest wall, concussion status post fall, alcohol intoxication. I do not suspect intracranial hemorrhage, stroke, posterior stroke. No signs of flail chest, pneumothorax. Will rule out fractures or dislocations of wrist although unlikely. Patient with full range of motion to bilateral wrist on exam, radial pulses present no signs of neurovascular compromise or threatened limb. Plan imaging, labs. <REBECCA Aceves - Last Filed: 08/07/22 00:01> Differential Diagnosis Differential Diagnoses: The differential diagnosis associated with the presentation includes <REBECCA Aceves - Last Filed: 08/07/22 00:01> Likely contusion to chest wall, concussion status post fall, alcohol intoxication. I do not suspect intracranial hemorrhage, stroke, posterior stroke. No signs of flail chest, pneumothorax. Will rule out fractures or dislocations of wrist although unlikely. Patient with full range of motion to bilateral wrist on exam, radial pulses present no signs of neurovascular compromise or threatened limb. <REBECCA Aceves - Last Filed: 08/07/22 00:01> Admission/Observation Consideration of admission/observation: Escalation of care including admission/observation considered <REBECCA Aceves - Last Filed: 08/07/22 00:01> Unlikely <REBECCA Aceves - Last Filed: 08/07/22 00:01> Lab Data MDM Lab Attestation statement: I reviewed the patient's lab results. <REBECCA Aceves - Last Filed: 08/07/22 00:01> Result Diagrams: 08/06/22 21:33 08/06/22 21:33 <REBECCA Aceves - Last Filed: 08/07/22 00:01> Labs: Lab Results 08/06/22 08/06/22 08/07/22 Range/Units 21:33 21:33 00:55 WBC 5.3 (4.8-10.8) X10*3/uL RBC 4.27 L (4.60-5.80) X10*6/uL Hgb 14.4 (14.0-18.0) g/dl Hct 42.1 (42.0-52.0) % MCV 98.6 H (80.0-98.0) fL MCH 33.7 H (27.0-33.0) pg MCHC 34.2 (31.0-36.0) g/dl RDW 12.3 (11.0-16.0) % Plt Count 187 (160-400) X10*3/uL MPV 9.8 (9.4-12.4) fL Immature Gran % (Auto) 0.2 (0.0-0.4) % Neut % (Auto) 58.5 (45-73) % Lymph % (Auto) 29.0 (20-40) % [place] % (Auto) 7.6 (2-11) % Eos % (Auto) 3.4 (0-4) % Baso % (Auto) 1.3 (0-2) % Lymph # (Auto) 1.5 (1.2-4.9) X10*3/uL [place] # (Auto) 0.4 (0.1-1.2) X10*3/uL Eos # (Auto) 0.2 (0.0-0.4) X10*3/uL Baso # (Auto) 0.1 (0.0-0.2) X10*3/uL Abs Immat Gran (auto) 0.01 (0.00-0.03) X10*3/uL Absolute Neuts (auto) 3.1 (2.0-8.3) x10*3/uL Absolute Nucleated RBC 0.000 (0.0-0.012) X10*3/uL Nucleated RBC % (auto) 0.0 (0.0-0.2) /100WBC Sodium 140 (135-145) mmol/L Potassium 3.6 (3.3-5.1) mmol/L Chloride 106 (96-108) mmol/L Carbon Dioxide 26 (22-29) mmol/L Anion Gap 12 (12-20) BUN 10 (9-16) mg/dL Creatinine 0.67 (0.5-1.4) mg/dL Estim Creat Clear Calc 128.6 Estimated GFR > 60 Random Glucose 101 (60-115) mg/dL Calcium 9.1 (8.4-10.2) mg/dL Magnesium 1.9 (1.6-2.6) mg/dL Total Bilirubin 0.4 (0.0-1.0) mg/dL Direct Bilirubin < 0.2 (0.0-0.5) mg/dL AST 23 (5-37) U/L ALT 24 (0-40) U/L Alkaline Phosphatase 74 (39-117) U/L Total Protein 6.8 (6.5-8.0) g/dL Albumin 4.0 (3.5-5.0) g/dL Urine Opiates Screen Not Detected (Not Detect) Urine Fentanyl Screen Not Detected (Not Detect) Ur Barbiturates Screen POSITIVE H (Not Detect) Ur Phencyclidine Scrn Not Detected (Not Detect) Ur Amphetamines Screen Not Detected (Not Detect) U Benzodiazepines Scrn POSITIVE H (Not Detect) Urine Cocaine Screen Not Detected (Not Detect) U Marijuana (THC) Screen Not Detected (Not Detect) Ethyl Alcohol 116 mg/dL <REBECCA Aceves - Last Filed: 08/07/22 00:01> Lab Results 08/06/22 08/06/22 08/07/22 Range/Units 21:33 21:33 00:55 WBC 5.3 (4.8-10.8) X10*3/uL RBC 4.27 L (4.60-5.80) X10*6/uL Hgb 14.4 (14.0-18.0) g/dl Hct 42.1 (42.0-52.0) % MCV 98.6 H (80.0-98.0) fL MCH 33.7 H (27.0-33.0) pg MCHC 34.2 (31.0-36.0) g/dl RDW 12.3 (11.0-16.0) % Plt Count 187 (160-400) X10*3/uL MPV 9.8 (9.4-12.4) fL Immature Gran % (Auto) 0.2 (0.0-0.4) % Neut % (Auto) 58.5 (45-73) % Lymph % (Auto) 29.0 (20-40) % [place] % (Auto) 7.6 (2-11) % Eos % (Auto) 3.4 (0-4) % Baso % (Auto) 1.3 (0-2) % Lymph # (Auto) 1.5 (1.2-4.9) X10*3/uL [place] # (Auto) 0.4 (0.1-1.2) X10*3/uL Eos # (Auto) 0.2 (0.0-0.4) X10*3/uL Baso # (Auto) 0.1 (0.0-0.2) X10*3/uL Abs Immat Gran (auto) 0.01 (0.00-0.03) X10*3/uL Absolute Neuts (auto) 3.1 (2.0-8.3) x10*3/uL Absolute Nucleated RBC 0.000 (0.0-0.012) X10*3/uL Nucleated RBC % (auto) 0.0 (0.0-0.2) /100WBC Sodium 140 (135-145) mmol/L Potassium 3.6 (3.3-5.1) mmol/L Chloride 106 (96-108) mmol/L Carbon Dioxide 26 (22-29) mmol/L Anion Gap 12 (12-20) BUN 10 (9-16) mg/dL Creatinine 0.67 (0.5-1.4) mg/dL Estim Creat Clear Calc 128.6 Estimated GFR > 60 Random Glucose 101 (60-115) mg/dL Calcium 9.1 (8.4-10.2) mg/dL Magnesium 1.9 (1.6-2.6) mg/dL Total Bilirubin 0.4 (0.0-1.0) mg/dL Direct Bilirubin < 0.2 (0.0-0.5) mg/dL AST 23 (5-37) U/L ALT 24 (0-40) U/L Alkaline Phosphatase 74 (39-117) U/L Total Protein 6.8 (6.5-8.0) g/dL Albumin 4.0 (3.5-5.0) g/dL Urine Opiates Screen Not Detected (Not Detect) Urine Fentanyl Screen Not Detected (Not Detect) Ur Barbiturates Screen POSITIVE H (Not Detect) Ur Phencyclidine Scrn Not Detected (Not Detect) Ur Amphetamines Screen Not Detected (Not Detect) U Benzodiazepines Scrn POSITIVE H (Not Detect) Urine Cocaine Screen Not Detected (Not Detect) U Marijuana (THC) Screen Not Detected (Not Detect) Ethyl Alcohol 116 mg/dL <Reynold Clark MD - Last Filed: 08/07/22 10:46> Independent Interpretation I performed an independent interpretation of an: CT Scan <REBECCA Aceves - Last Filed: 08/07/22 00:01> Radiology Impression Discussion of test interpretation with radiology: I have reviewed the radiologist's reading. <REBECCA Aceves - Last Filed: 08/07/22 00:01> External Record Review External record reviewed: Inpatient record, Office record, Outpatient record, Prior outpatient labs, Prior outpatient radiology and Primary care record <REBECCA Aceves - Last Filed: 08/07/22 00:01> Core Measures AMI core measures followed: Yes <REBECCA Aceves - Last Filed: 08/07/22 00:01> Measure exclusions: not indicated <REBECCA Aceves - Last Filed: 08/07/22 00:01> Critical Care Time Critical Care Time Critical Care Time: No <REBECCA Aceves - Last Filed: 08/07/22 00:01> Discharge Plan Discharge Clinical Impression: Fall, Chest wall contusion, Concussion without loss of consciousness, Abrasion, Alcohol intoxication, Bilateral wrist pain <REBECCA Aceves Last Filed: 08/07/22 00:01> Patient Disposition: Home, Self-Care <REBECCA Aceves - Last Filed: 08/07/22 00:01> Instructions: Wrist Injury (ED), Concussion (ED), Alcohol Intoxication (ED), Abuse of Alcohol (ED), Post Concussion Syndrome (ED), Arthralgia (ED), Rib Contusion (ED), Alcohol Use Disorder (ED) <REBECCA Aceves - Last Filed: 08/07/22 00:01> Additional Instructions: Take your medications as prescribed. If you were prescribed antibiotics today, it is important that you take your medication to their entirety, do not skip any doses, do not finish them early. Follow-up with your primary care provider this week. Return to the emergency department with new or worsening symptoms. Such as fevers, chills, chest pain, shortness of breath, nausea, vomiting, dizziness, headache, vision changes, lethargy In case of emergency call 911 <REBECCA Aceves - Last Filed: 08/07/22 00:01> Prescriptions: No Action naproxen [Naprosyn] 500 mg tablet 500 mg PO BID Qty: 20 0RF thiamine HCl (vitamin B1) 50 mg tablet 50 mg PO DAILY Qty: 30 0RF folic acid 1 mg tablet 1 mg PO DAILY Qty: 30 0RF metformin 500 mg tablet 500 mg PO BID atorvastatin 10 mg tablet 10 mg PO DAILY amlodipine 5 mg tablet 5 mg PO DAILY omeprazole 20 mg capsule,delayed release(DR/EC) 20 mg PO DAILY metoprolol succinate 50 mg tablet extended release 24 hr 50 mg PO DAILY <REBECCA Aceves - Last Filed: 08/07/22 00:01> Referrals: Physician,Unknown J [Primary Care Provider] - 2 days <REBECCA Aceves - Last Filed: 08/07/22 00:01>
[2022-08-07] VITALS: BP 156/68; PULSE 87; RESP 19; TEMP 36.6; O2SAT 97
[2022-08-07 05:48] LABS: Amphetamine Screen Urine Not Detected (Not Detect); Barbiturates, Urine POSITIVE (Not Detect); Benzodiazepines Screen Urine POSITIVE (Not Detect); Cannabinoid Screen Urine Not Detected (Not Detect); Cocaine Screen Urine Not Detected (Not Detect); Fentanyl, urine Not Detected (Not Detect); Opiate Screen Urine Not Detected (Not Detect); Phencyclidine Screen Urine Not Detected (Not Detect)
[2022-08-07 06:10] VITALS: BP 146/75; PULSE 90; RESP 19; TEMP 36.5; O2SAT 98
--- NOTE | 2022-08-07 06:11 | MHC.EDTECH ---
Pt 1x assisted with walking to BR. PT 1x assisted back to bed. PT given warm blanket and call claire in reach
--- NOTE | 2022-08-07 10:49 | MHC.RECOVRN ---
This radio script writer familiar with patient, met with patient. Patient is not eligible for detox at this time, previously denied from detoxes for not meeting level of care. T/W reviewed resources at the bedside [facility] [place] for recovery supports, list of local shelters, resource list for food/clothing. Resources left at bedside. Patient provided w/ bus passes by ED RN. Patient verbalized understanding. Provider aware.
== END 2022-08-07 10:58 | disposition home or self-care (01) ==
PROVIDERS: Physician Assistant; Emergency Provider Internal Medicine
DX: S06.0X0A Concussion without loss of consciousness, initial encounter (principal); S20.214A Contusion of middle front wall of thorax, initial encounter; S60.812A Abrasion of left wrist, initial encounter; S60.811A Abrasion of right wrist, initial encounter; R07.89 Other chest pain; F10.20 Alcohol dependence, uncomplicated; W01.0XXA Fall on same level from slipping, tripping and stumbling without subsequent striking against object, initial encounter; M54.2 Cervicalgia; R10.9 Unspecified abdominal pain; R51.9 Headache, unspecified; Y90.5 Blood alcohol level of 100-119 mg/100 ml; Y93.9 Activity, unspecified; Y92.9 Unspecified place or not applicable; Y99.9 Unspecified external cause status; Z79.899 Other long term (current) drug therapy
CPT/HCPCS: 36415; 70450; 70486; 71250; 72125; 73110; 73130; 74176; 80048; 80076; 80307; 82077; 83735; 85025; 99283; 99284

== ENCOUNTER 2022-08-24 19:46 | Emergency (ER) | payer OTHER, SELFPAY ==
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
[2022-08-24 19:58] VITALS: BP 139/76; PULSE 83; RESP 18; TEMP 36.9; O2SAT 97; BMI 27.2
[2022-08-24 20:18] LABS: Basophils Percent Auto 0.4 % (0-2); Eosinophils Percent Auto 0.2 % (0-4); Hematocrit 43.5 % (42.0-52.0); Hemoglobin 14.3 g/dl (14.0-18.0); Imm Gran Abs Auto 0.02 X10*3/uL (0.00-0.03); Imm Gran Pct Auto 0.2 % (0.0-0.4); Lymphocytes Absolute Auto 0.4 X10*3/uL (1.2-4.9); Lymphocytes Percent Auto 4.1 % (20-40); MANUAL DIFF FLAG SCAN; Mean Corpuscular HGB Conc 32.9 g/dl (31.0-36.0); Mean Corpuscular Hemoglobin 32.6 pg (27.0-33.0); Mean Corpuscular Volume 99.3 fL (80.0-98.0); Monocytes Absolute Auto 0.3 X10*3/uL (0.1-1.2); Monocytes Percent Auto 3.7 % (2-11); Neutrophils Absolute Auto 8.3 x10*3/uL (2.0-8.3); Neutrophils Percent Auto 91.4 % (45-73); Platelet Count 187 X10*3/uL (160-400); Red Blood Count 4.38 X10*6/uL (4.60-5.80); Red Cell Distribution Width 12.6 % (11.0-16.0); SCAN SMEAR FLAG 1; White Blood Count 9.1 X10*3/uL (4.8-10.8)
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
[2022-08-24 20:34] LABS: Anion Gap 25 (12-20); Blood Urea Nitrogen 13 mg/dL (9-16); Calcium 9.1 mg/dL (8.4-10.2); Carbon Dioxide 18 mmol/L (22-29); Chloride 103 mmol/L (96-108); Creatinine Clr Calc Pharmacy 126.7; Estimated Glomerular Filt Rate > 60; Ethanol 30 mg/dL; Glucose Random 75 mg/dL (60-115); Potassium 3.6 mmol/L (3.3-5.1); Sodium 142 mmol/L (135-145)
[2022-08-24 20:52] LABS: SLIDE REVIEW VERIFIED
[2022-08-24 22:09] VITALS: BP 125/50; PULSE 115; RESP 16; O2SAT 96
--- NOTE | 2022-08-24 22:30 | PC.NURSE ---
pt a&ox3, unable to get urine sample at this time, pt requesting water.
[2022-08-25 01:39] VITALS: BP 146/78; PULSE 112; RESP 19; TEMP 36.6; O2SAT 98
--- NOTE | 2022-08-25 02:42 | PC.NURSE ---
pt is sleeping with no sign of distress. Will discharge in am one sober up. Will continue to monitor.
--- NOTE | 2022-08-25 03:50 | PC.NURSE ---
pt is sleeping no sign of distress at this time.
--- NOTE | 2022-08-25 03:53 | MHC.EDTECH ---
Pt made aware that urine sample needed . Pt given urine cup and will ring when ready.
--- NOTE | 2022-08-25 05:58 | PC.NURSE ---
pt being rude during discharge, security at the bedside to assist with discharge. Discharge instruction reviewed. No sign of distress at this time.
[2022-08-25 06:00] VITALS: BP 168/79; PULSE 81; RESP 17; TEMP 36.1; O2SAT 96
== END 2022-08-25 06:06 | disposition home or self-care (01) ==
PROVIDERS: Emergency Provider Emergency Medicine
DX: S30.0XXA Contusion of lower back and pelvis, initial encounter (principal); F10.129 Alcohol abuse with intoxication, unspecified; Y90.1 Blood alcohol level of 20-39 mg/100 ml; Y04.2XXA Assault by strike against or bumped into by another person, initial encounter; Y93.9 Activity, unspecified; Y92.9 Unspecified place or not applicable; Y99.9 Unspecified external cause status; Z79.899 Other long term (current) drug therapy
CPT/HCPCS: 36415; 72100; 80048; 82077; 85025; 99284

== ENCOUNTER 2022-08-25 09:26 | Emergency (ER) | payer OTHER, SELFPAY ==
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
[2022-08-25 09:36] VITALS: BP 160/81; PULSE 106; RESP 19; TEMP 36.7; O2SAT 97
[2022-08-25 09:45] VITALS: BP 160/81; BP 172/90; PULSE 102; PULSE 120; RESP 18; TEMP 36.4; O2SAT 96; O2SAT 98; BMI 27.1
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
[2022-08-25 10:57] VITALS: BP 177/104; PULSE 99; RESP 20; TEMP 36.9; O2SAT 94
[2022-08-25 10:59] VITALS: BP 162/89; PULSE 102; RESP 19; TEMP 36.4; O2SAT 97
--- NOTE | 2022-08-25 13:56 | PHA.MEDREC ---
Pharmacy Consult ? Medication Reconciliation Pharmacy has completed the medication reconciliation. Pt had recent claim fill for acamprosate but states he doesn't take it. Agreeable to most medications
[2022-08-25 16:25] VITALS: BP 155/79; PULSE 101; RESP 16; TEMP 36.4; O2SAT 97
--- NOTE | 2022-08-25 16:27 | PC.NURSE ---
PT AMBULATING IN THE MAIN ED WITHOUT DIFFICULTY, HE HAS A LIMP HE STATES IS CHRONIC. HE WAS OFFERED FOOD AND FLUIDS-DECLINED BOTH
== END 2022-08-25 16:32 | disposition home or self-care (01) ==
PROVIDERS: Emergency Provider Student in an Organized Health Care Education/Training Program; PCP Internal Medicine
DX: M25.551 Pain in right hip (principal); M25.552 Pain in left hip; Z79.899 Other long term (current) drug therapy
CPT/HCPCS: 73521; 99283

== ENCOUNTER 2022-09-14 20:10 | Emergency (ER) | payer OTHER, SELFPAY ==
[2022-09-14 20:18] VITALS: BP 116/60; BP 142/74; PULSE 102; PULSE 96; RESP 18; TEMP 36.4; O2SAT 100; O2SAT 97; BMI 25.4
--- NOTE | 2022-09-14 20:40 | PC.NURSE ---
Addendum entered by Ingrid Hernandez 09/15/22 04:21: pt belongings secured by security. belongings in decon Original Note: pt biba. vss. pt ambulatory with standby assistance. general medical practitioner assisted pt with restroom. dr shea made aware of pt status. pt changed into hospital attire.
--- NOTE | 2022-09-14 20:56 | PC.NURSE ---
poc 106 at this time
--- NOTE | 2022-09-14 20:56 | PC.NURSE ---
pt moved from 6h to 6. pt calm and cooperative at this time
[2022-09-14 20:58] LABS: Glucose, Whole Blood 106 mg/dL (60-115)
--- NOTE | 2022-09-14 22:00 | ED.ALCOHOL ---
HPI - Alcohol General Chief Complaint: ETOH/Substance Use Stated Complaint: ETOH Time Seen by Provider: 09/14/22 20:22 History of Present Illness HPI narrative: Patient is a 61-year-old male. History of ETOH history of hypertension, diabetes, hypercholesterolemia. Presented today grossly intoxicated Related Data Home Medications Medication Instructions Recorded Confirmed amlodipine 5 mg tablet 5 mg PO DAILY 10/21/21 08/25/22 atorvastatin 10 mg tablet 10 mg PO DAILY 10/21/21 08/25/22 metformin 500 mg tablet 500 mg PO BID 10/21/21 08/25/22 metoprolol succinate 50 mg 50 mg PO DAILY 10/21/21 08/25/22 tablet,extended release 24 hr omeprazole 20 mg capsule,delayed 20 mg PO DAILY 10/21/21 08/25/22 release Previous Rx's Medication Instructions Recorded folic acid 1 mg tablet 1 mg PO DAILY #30 tabs 10/21/21 thiamine HCl (vitamin B1) 50 mg 50 mg PO DAILY #30 tabs 10/21/21 tablet naproxen 500 mg tablet (Naprosyn) 500 mg PO BID #20 tabs 08/05/22 naproxen 500 mg tablet 500 mg PO BID PRN pain 10 days #20 08/25/22 tabs Allergies Allergy/AdvReac Type Severity Reaction Status Date / Time bee pollen [BEE STINGS] Allergy Intermediate SWELLING Verified 08/06/22 21:42 polyethylene glycol Allergy Unknown Swelling Verified 08/06/22 21:42 [Golytely] polyethylene glycol 3350 Allergy Unknown Unknown Verified 08/06/22 21:42 [Golytely] potassium chloride [Golytely] Allergy Unknown Unknown Verified 08/06/22 21:42 sodium [Golytely] Allergy Unknown Unknown Verified 08/06/22 21:42 sodium bicarbonate [Golytely] Allergy Unknown Unknown Verified 08/06/22 21:42 sodium chloride [Golytely] Allergy Unknown Unknown Verified 08/06/22 21:42 sodium sulfate [Golytely] Allergy Unknown Unknown Verified 08/06/22 21:42 Review of Systems Review of Systems: No fever no chills Yes all other systems are reviewed and are negative [facility] Past Medical History Medical History Diabetes GERD (gastroesophageal reflux disease) Surgical History Hx of pelvic surgery Social History Social History Alcohol intake: current Alcohol intake frequency: a few times a week Alcohol type: beer Patient Tobacco Use Status: Never used Tobacco Advance Directives: No Advance Directives Information Provided: No Current occupational status: unemployed 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 Oriented X3. No acute distress. Eyes: Pupils equal, round and reactive to light. ENT: Pharynx normal. Neck: Normal inspection. Neck supple. No lymph nodes noted. No crepitus CVS: Normal heart rate and rhythm. Pulses normal. Normal S1 and S2 Respiratory: No respiratory distress. Breath sounds normal. No Wheezing. No rales Abdomen: Soft and nontender. No rigidity. No distention. good BS x4 Skin: Positive old bite donavan to the right hand. There is sutures still in place. Distally neurovascularly intact. Extremities: No lower extremity edema. Neurovascular intact to all extremities. No Lacerations. No Rash Neuro: Oriented X 3. No motor deficit. No sensory deficit. Moving all extermities. No slurred speech Medical Decision Making Medical Decision Making MDM Narrative: Patient's old stitches from the right hand was removed. His alcohol levels greater than 300. Currently awaiting sobering. Patient has no trauma. Is in stable condition. Differential Diagnosis Differential Diagnoses: The differential diagnosis associated with the presentation includes Alcohol intoxication, previous dog bite to the right hand Lab Data 09/14/22 22:35 09/14/22 22:35 Labs: Lab Results 09/14/22 09/14/22 09/14/22 Range/Units 20:55 22:35 22:35 WBC 8.0 (4.8-10.8) X10*3/uL RBC 4.04 L (4.60-5.80) X10*6/uL Hgb 13.3 L (14.0-18.0) g/dl Hct 38.0 L (42.0-52.0) % MCV 94.1 (80.0-98.0) fL MCH 32.9 (27.0-33.0) pg MCHC 35.0 (31.0-36.0) g/dl RDW 12.7 (11.0-16.0) % Plt Count 219 (160-400) X10*3/uL MPV 9.3 L (9.4-12.4) fL Immature Gran % (Auto) 0.3 (0.0-0.4) % Neut % (Auto) 68.4 (45-73) % Lymph % (Auto) 23.8 (20-40) % [place] % (Auto) 5.5 (2-11) % Eos % (Auto) 1.4 (0-4) % Baso % (Auto) 0.6 (0-2) % Lymph # (Auto) 1.9 (1.2-4.9) X10*3/uL [place] # (Auto) 0.4 (0.1-1.2) X10*3/uL Eos # (Auto) 0.1 (0.0-0.4) X10*3/uL Baso # (Auto) 0.1 (0.0-0.2) X10*3/uL Abs Immat Gran (auto) 0.02 (0.00-0.03) X10*3/uL Absolute Neuts (auto) 5.5 (2.0-8.3) x10*3/uL Absolute Nucleated RBC 0.000 (0.0-0.012) X10*3/uL Nucleated RBC % (auto) 0.0 (0.0-0.2) /100WBC Sodium 138 (135-145) mmol/L Potassium 3.6 (3.3-5.1) mmol/L Chloride 103 (96-108) mmol/L Carbon Dioxide 25 (22-29) mmol/L Anion Gap 14 (12-20) BUN 6 L (9-16) mg/dL Creatinine 0.55 (0.5-1.4) mg/dL Estim Creat Clear Calc 156.7 Estimated GFR > 60 POC Glucose 106 (60-115) mg/dL Random Glucose 115 (60-115) mg/dL Calcium 8.3 L D (8.4-10.2) mg/dL Magnesium 2.0 (1.6-2.6) mg/dL Ethyl Alcohol 302 H* mg/dL Discharge Plan Discharge Clinical Impression: Alcoholic intoxication, Visit for suture removal Patient Disposition: Home, Self-Care Instructions: Stitches Removal (ED), Alcohol Intoxication (ED) Prescriptions: No Action naproxen [Naprosyn] 500 mg tablet 500 mg PO BID Qty: 20 0RF naproxen 500 mg tablet 500 mg PO BID PRN (Reason: pain) 10 Days Qty: 20 0RF thiamine HCl (vitamin B1) 50 mg tablet 50 mg PO DAILY Qty: 30 0RF folic acid 1 mg tablet 1 mg PO DAILY Qty: 30 0RF metformin 500 mg tablet 500 mg PO BID atorvastatin 10 mg tablet 10 mg PO DAILY amlodipine 5 mg tablet 5 mg PO DAILY omeprazole 20 mg capsule,delayed release(DR/EC) 20 mg PO DAILY metoprolol succinate 50 mg tablet extended release 24 hr 50 mg PO DAILY Referrals: Samuel Saldana MD [Primary Care Provider] - (Please stop drinking alcohol.)
[2022-09-14 22:40] LABS: MANUAL DIFF FLAG NO
[2022-09-14 22:43] LABS: Basophils Absolute Auto 0.1 X10*3/uL (0.0-0.2); Basophils Percent Auto 0.6 % (0-2); Eosinophils Absolute Auto 0.1 X10*3/uL (0.0-0.4); Eosinophils Percent Auto 1.4 % (0-4); Hemoglobin 13.3 g/dl (14.0-18.0); Imm Gran Abs Auto 0.02 X10*3/uL (0.00-0.03); Imm Gran Pct Auto 0.3 % (0.0-0.4); Lymphocytes Absolute Auto 1.9 X10*3/uL (1.2-4.9); Lymphocytes Percent Auto 23.8 % (20-40); Mean Corpuscular Hemoglobin 32.9 pg (27.0-33.0); Mean Corpuscular Volume 94.1 fL (80.0-98.0); Mean Platelet Volume 9.3 fL (9.4-12.4); Monocytes Absolute Auto 0.4 X10*3/uL (0.1-1.2); Monocytes Percent Auto 5.5 % (2-11); Neutrophils Absolute Auto 5.5 x10*3/uL (2.0-8.3); Neutrophils Percent Auto 68.4 % (45-73); Platelet Count 219 X10*3/uL (160-400); Red Blood Count 4.04 X10*6/uL (4.60-5.80); Red Cell Distribution Width 12.7 % (11.0-16.0)
[2022-09-14 22:57] LABS: Anion Gap 14 (12-20); Blood Urea Nitrogen 6 mg/dL (9-16); Calcium 8.3 mg/dL (8.4-10.2); Carbon Dioxide 25 mmol/L (22-29); Chloride 103 mmol/L (96-108); Creatinine Clr Calc Pharmacy 156.7; Estimated Glomerular Filt Rate > 60; Ethanol 302 mg/dL; Glucose Random 115 mg/dL (60-115); Potassium 3.6 mmol/L (3.3-5.1); Sodium 138 mmol/L (135-145)
[2022-09-15 00:31] VITALS: BP 121/76; PULSE 71; RESP 17; TEMP 36.4; O2SAT 96
--- NOTE | 2022-09-15 02:49 | PC.NURSE ---
pt sleeping on stretcher at this time. pt chest noted to rise and fal. RR 18 nonlabored
[2022-09-15 02:50] VITALS: RESP 18
[2022-09-15 04:19] VITALS: BP 113/61; PULSE 99; RESP 18; TEMP 37.1; O2SAT 97
--- NOTE | 2022-09-15 04:23 | PC.NURSE ---
pt arousable to this rn. vss. pt resting on stretcher. RR nonlabored
[2022-09-15 06:16] VITALS: BP 109/67; PULSE 95; RESP 18; TEMP 37; O2SAT 98
--- NOTE | 2022-09-15 06:42 | PC.NURSE ---
pt ambulatory at discharge. pt provided with discharge packet. pt reports to this nurse understanding of discharge plan. pt brought to decon by this rn to obtain belongings
== END 2022-09-15 06:44 | disposition home or self-care (01) ==
PROVIDERS: Emergency Provider Emergency Medicine Emergency Medical Services; PCP Internal Medicine
DX: F10.129 Alcohol abuse with intoxication, unspecified (principal); Y90.5 Blood alcohol level of 100-119 mg/100 ml; I10 Essential (primary) hypertension; E11.9 Type 2 diabetes mellitus without complications; Z79.84 Long term (current) use of oral hypoglycemic drugs; Z48.02 Encounter for removal of sutures; Z79.899 Other long term (current) drug therapy
CPT/HCPCS: 36415; 80048; 82077; 82947; 83735; 85025; 99285

== ENCOUNTER 2022-09-16 21:25 | Emergency (ER) | payer OTHER, SELFPAY ==
[2022-09-16 21:35] VITALS: BP 152/78; PULSE 82; O2SAT 98
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
[2022-09-16] MEDS: Bacitracin Oint 0.9 GM PACKET 2 APPL TOPICAL (22:04)
[2022-09-16 22:13] VITALS: BMI 27.1
[2022-09-16 22:33] VITALS: BP 133/76; PULSE 97; RESP 18; O2SAT 100
[2022-09-16] MEDS: Amoxicillin/Potassium Clav 875 MG TABLET PO (22:40)
--- NOTE | 2022-09-16 23:36 | PC.NURSE ---
Pt assisted to change into hospital attire per security. Belonings placed in POD lockers.
--- NOTE | 2022-09-17 00:06 | PC.NURSE ---
Pt resting quietly with eyes closed. Respirations even and unlabored, no acute distress noted.
[2022-09-17 02:00] VITALS: BP 132/71; PULSE 98; RESP 18; O2SAT 99
[2022-09-17 06:00] VITALS: BP 141/62; PULSE 102; RESP 19; TEMP 36.7; O2SAT 98
[2022-09-17 07:37] VITALS: RESP 18
[2022-09-17 09:48] VITALS: BP 145/75; PULSE 100; RESP 18; TEMP 36.8; O2SAT 98
--- NOTE | 2022-09-17 10:00 | PC.NURSE ---
Stephanie Velazco, MICROSTRATEGY BI DEVELOPER at bedside. Patient aware of plan of care. Patient request/given 2 bus passes. Pt d/c'd home. Pt has wound on right hand, area cleansed with NS, followed by xeroform, then telfa, then wrapped with clean dry dressing. Pt given extra dressing supplies for home. Patient aware of plan of care.
--- NOTE | 2022-09-17 10:23 | MHC.RECOVRN ---
This abstract writer met w/ patient, after patient request Suboxone medication prior to d/c. T/W is familiar with patient, patient in the past presented to [facility] for ETOH use. Patient reports, has not been drinking, patient states was bit by a dog and drank for few days . T/W provided recovery resources, patient states does not need Detox List as is not drinking. Patient states does not use opiates. T/W did provide information to MAT Program here at [facility], reviewed that via [facility] patient last prescribed one week Suboxone 08/12/22, patient encouraged to follow up with Suboxone clinic if interested in getting prescribed Suboxone. Patient verbalized understanding.
== END 2022-09-17 10:20 | disposition home or self-care (01) ==
PROVIDERS: Emergency Provider Internal Medicine; PCP Internal Medicine
DX: F10.10 Alcohol abuse, uncomplicated (principal); Y90.9 Presence of alcohol in blood, level not specified; S61.452D Open bite of left hand, subsequent encounter; W54.0XXD Bitten by dog, subsequent encounter; E11.9 Type 2 diabetes mellitus without complications; Z79.84 Long term (current) use of oral hypoglycemic drugs
CPT/HCPCS: 99283; 99285

== ENCOUNTER 2022-09-24 20:51 | Emergency (ER) | payer OTHER, SELFPAY ==
[2022-09-24 21:21] VITALS: BP 110/56; BP 124/68; PULSE 87; PULSE 92; RESP 18; TEMP 36.6; O2SAT 96; O2SAT 98; BMI 25.0
--- NOTE | 2022-09-24 21:40 | PC.NURSE ---
late entry- pt belongings secured by secured in decon pt changed to hospital attire
--- OUTSIDE RECORDS SUMMARY | 2022-09-24 21:40 | XMS_ITS | Continuity of Care Document ---
Author Name Unknown Organization [facility] ter Address [address] [place] [address]- Care Team Providers Care Assistant Athletic Trainer Name Role Phone Samuel Saldana MD Primary Care Physician [phone] [place] [facility] [place]15[place]22 - 09/16/[address] [address]- Encounter Diagnosis Dog bite(Final) - 09/15/22 Discharge Disposition: A-D/C Home Attending Physician: Kel Sesay MD Admitting Physician: Kel Sesay MD Referring Physician: Not on Staff, Referring MD Allergies, Adverse Reactions, Alerts Substance Reaction Severity Status codeine itch Active Immunizations Given and Recorded Vaccine Date Status Refusal Reason rabies vaccine, human diploid cell 09/15/22 Given rabies vaccine, human diploid cell 09/03/22 Given Rabies Immune Globulin, Human 1 09/03/22 Given tetanus/diphtheria/pertussis, acel(Tdap) 09/03/22 Given 1Result Comment: INFLITRATED AROUND BITE SITE IN HAND AND THEN REMAINDER IN RIGHT DELTOID Medications Ibuprofen Maintenance, 10/16/10 11:47:38 Start Date: 10/16/10 Status: Ordered Metformin By Mouth, 0 Refills, Maintenance, 01/07/21 11:33:00 EDT, Partial fill upon patient request if the prescription is for a schedule II opioid drug. Start Date: 01/07/21 Status: Ordered Percocet-5/325 325 mg-5 mg oral tablet 1 tablet, By Mouth, Every 4 hours, PRN Pain, # 24 tablet, 0 Refills, Maintenance Start Date: 09/01/10 Status: Ordered Suboxone 8 mg-2 mg Sublingual Film 2 film, Sublingual, Daily, dissolve under the tongue. CONRADO-X: [id number], # 14 film, 0 Refills, Maintenance, 08/07/22 22:39:00 EST, Film, [facility], Partial fill upon patient request ifthe prescription is for a schedule II opioid drug.... Start Date: 08/07/22 Stop Date: 08/14/22 Status: Ordered Suboxone 8 mg-2 mg Sublingual Film 2 film, Sublingual, Daily, dissolve under the tongue. CONRADO-X: [id number], # 14 film, 0 Refills, Maintenance, 08/07/22 23:29:00 EST, Film, [facility], Partial fill upon patient requestif the prescription is for a schedule II opioid drug.,... Start Date: 08/07/22 Stop Date: 08/14/22 Status: Ordered Problem List Condition Confirmation Course Effective Dates Status Health St atus Informant Fracture of facial bone Confirmed Active Results Radiology Reports * Exam Date Time Procedure Performing Provider Status 09/15/22 9:[address] Ext Upper W/ Contrast Right Binh Knight; Justin (Verified) Notes: (CT Ext Upper W/ Contrast Right) Reason For Exam: s/p dog bite to right dorsal ulnar hand, complaning of worsening pain;Infection RESULT: CT Ext Upper W/ Contrast Right CT Ext Upper W/ Contrast Right HX OF PRESENT ILLNESS: Pt sustained dog bite and has reportedly been noncompliant with rabies vaccination. States he has had 3 beers today.; Reason: Infection; s p dog bite to right dorsal ulnar hand, complaning of worsening pain; Clinical Question(s): Hand; Order Comment: TECHNIQUE: Helical CT with contrast formatted in 3 planes. 100 cc of Omnipaque 300 was administeredintravenously. Weight-based protocol using automatic tube modulation was used to optimize exposure parameters. CTDIvol Body: 8.00 mGy, DLP Body: 214 mGy*cm. COMPARISONS: 09/03/2022 radiographic FINDINGS: Bones and joints: No fracture or dislocation is present. No erosions, productive changes or abnormal calcifications are noted. Soft Tissues: Asymmetric soft tissue stranding and overlying skin thickening along the dorsal aspect of the fifth digit, likely related to the site of dog bite. Apparent ulceration of the skin likelyreflects wound. No discrete abscess. IMPRESSION: 1. No osseous abnormalities. 2. Asymmetric soft tissue edema and overlying skin thickening along the dorsal aspect of the fifth digit, suspicious for cellulitis. No discrete drainable fluid collection. I have personally reviewed the images and I agree with this report. WSN: [id number] Ordering Physician: Jen Dotson Dictated By: Patricio Lopez MD Dictated Date/Time: 09/16/22 8:10 am Reviewed By: Vimal Torres MD Signed By: Vimal Torres MD Signed Date/Time: 09/16/22 8:15 am Transcribed By: STEPHANIE Transcribed Date/Time: 09/15/22 9:49 pm Vital Signs Most recent to oldest [Reference Range]: 1 2 3 Height 183 cm (09/15/22 8:48 PM) Weight 86.3 kg (09/15/22 8:48 PM) Oxygen Saturation [94-100 %] 98 % (09/16/22 12:06 AM) 99 % (09/15/22 10:55 PM) 98 % (09/15/22 9:31 PM) Pulse Rate [55-90 bpm] 100 bpm *H* (09/16/22 12:06 AM) 94 bpm *H* (09/15/22 10:55 PM) 96 bpm *H* (09/15/22 9:31 PM) Blood Pressure [90-138/55-84 mm Hg] 129/62mm Hg (09/16/22 12:06 AM) 115/60mm Hg (09/15/22 10:55 PM) 125/73mm Hg (09/15/22 9:31 PM) Respiratory Rate [16-30 br/min] 20 br/min (09/16/22 12:06 AM) 20 br/min (09/15/22 10:55 PM) 20 br/min (09/15/22 9:31 PM) Temperature [96.8-100.4 DegF] 97.5 DegF (09/16/22 12:06 AM) 97.9 DegF (09/15/22 9:31 PM) 97.9 DegF (09/15/22 8:48 PM) Mode of Delivery (Oxygen) Room air (09/16/22 12:06 AM) Room air (09/15/22 10:55 PM) Room air (09/15/22 9:31 PM) Temperature Route Oral (09/16/22 12:06 AM) Oral (09/15/22 9:31 PM) Oral (09/15/22 8:48 PM) Dry Weight 86.3 kg (09/15/22 8:48 PM) Note * Jen Dotson MD: PERFORM Event Display: Patient Education Leaflets Authored Date: [id number] Dog Bite ?? [id number] Dog Bite A dog bite can cause a wound deep enough to break the skin. In such cases, the wound is cleaned and??sometimes??closed with stitches (sutures). Wounds would be closed if they're gaping open or in cosmetically important areas, such as the face.??If??the wound is??closed,??it usually isn't??completely??closed. This is so that fluid can drain if the wound becomes infected.??Often, wounds will be left open to heal.??In addition to wound care, a tetanus shot (injection) may be given, if needed. Home care ??? Wash your hands well with soap and warm water before and after caring for the wound. This helpslower the risk of infection. ??? Care for the wound as directed by your provider. If a dressing wasapplied to the wound, be sure to change it as directed. ??? If the wound bleeds, place a clean, soft cloth on the wound. Then firmly apply pressure until the bleeding stops. This may take up to 5 minutes. Don't release the pressure and look at the wound during this time. ??? Most wounds heal days. But an infection can occur even with correct treatment. So be sure to check the wound daily for signs of infection (see below). ??? Antibiotics may be prescribed. These medicines help prevent or treat infection. If you???re given antibiotics, take them as directed. Also be sure to take allof the medicine. Rabies prevention Rabies is a virus that can be carried in certain animals. These can include domestic animals, such as dogs and cats. Pets fully vaccinated against rabies (2 shots) are at very low risk of infection. But because human rabies is almost always fatal, any biting pet should be confined for 10 days as anextra precaution. In general, if there's a risk for rabies, the following steps may need to be taken: ??? If someone???s pet dog has bitten you, it should be kept in a secure area for the next 10 days to watch for signs of illness. (If the pet electrical power engineer won???t allow this, contact your local animal control center.) Ask to see the pet's vaccination history records. If the dog becomes ill or dies during that time, contact your local animal control center at once so the animal can be tested for rabies. If the dog stays healthy for the next 10 days, there's no danger of rabies in the animal or you. oIf a stray dog bit you, contact your local animal control center. They can give information on capture, quarantine, and animal rabies testing. o If you can???t find the animal that bit you in the next 2 days, and if rabies exists in your area, you may need to receive the rabies vaccine series. Callyour healthcare provider or return to the emergency room right away. o All animal bites should be reported to the local animal control center. If you weren't given a form to fill out, you can report it yourself. ?? Follow-up care Follow up with your healthcare provider, or as advised. ?? When to get medical advice Call your provider or get medical care right away if any of these occur: ??? Signs of infection: o Spreading redness or warmth from the wound o Increased pain or swelling o Fever of 100.4??F (38??C) or higher, or as directed by your provider o Colored fluid or pus draining from the wound ??? Signs of rabies infection. Don't wait for any of the symptoms below to start. If you suspect that the dog that bit you is rabid or if the dog is lost and can't be found, you should get the vaccine series. oHeadache o Confusion o Strange behavior o Increased salivating and drooling o Seizure o Hallucination, anxiety, or agitation o Fever ??? Decreased ability to move any body part near the wound ??? Bleeding that can't be stopped after 5 minutes of firm pressure ?? Last Reviewed Date: 2021 ?? [id number] [employer]. All rights reserved. This information is not intended as a substitute for professional medical care. Always follow your healthcare professional's instructions. ?? * Jen Dotson MD: PERFORM Event Display: Patient Education Leaflets Authored Date: [id number] Hand Laceration: All Closures ?? [id number] Hand Laceration: All Closures A laceration is a cut through the skin. Deep cuts usually need stitches. Minor cuts may be closed with surgical tape or skin adhesive.?? X-rays may be done if something may have entered the skin through the cut, such as broken glass. You may also be given a tetanus shot if you are not up-to-date on this vaccine and the nature of the cut may lead to tetanus. Home care ??? Follow all directions for taking medicines that your healthcare provider may prescribe. o Your healthcare provider may prescribe an antibiotic. This is to help prevent infection. Take the medicine every day until it's gone, or you are told to stop. You should not have any left over. oYour healthcare provider may prescribe medicine for pain. Know how and when to take this medicine. If your provider did not prescribe pain medicine, you may use tyvl-vhi-vopdwck pain medicine. If youhave chronic liver or kidney disease, or ever had a stomach ulcer or gastrointestinal bleeding, talk with your healthcare provider before using these medicines. ??? Follow the healthcare provider???s directions on how to care for the cut. ??? Keep the wound clean and dry. Don't get the wound wet until you are told it's OK to do so.??If the bandage gets wet, remove it. Gently pat the wound dry with a clean cloth. Then put on a clean, dry bandage. ??? To help prevent infection, wash your hands with soap and water before and after caring for the wound.? Caring for stitches. Once you no longer need to keep the stitches dry, clean the wound daily. First, remove the bandage. Then wash the area gently with soap and warm water, or as directed by the??healthcare provider. Use a clean, wet cotton swab to loosen and remove any blood or crust that forms. After cleaning, apply a thin layer of antibiotic ointment if advised. Then put on a new bandage unless you are told not to. ??? Caring for skin glue. Don???t put any liquid, ointment, or cream on the wound while the glue is in place. It's OK to briefly shower but don't submerge under water for at least 7 days. Stay away from activities that cause heavy sweating. Protect the wound from sunlight.??Don't scratch, rub, or pick at the adhesive film. Don't place tape directly over the film.??The glue should fall off by itself within 5 to 10 days.??Call your healthcare provider if you have skin blistering or excessive itching. ??? Caring for surgical tape. Keep the area dry. If it gets wet, blot it dry with a clean towel. Surgical tape usually falls off within 7 to 10 days. If it has not fallen off after 10 days, you can take it off yourself. Put mineral oil or petroleum jelly on a cotton ball and gently rub the tape until it's removed. ??? Shower as usual once you can get the wound wet, but don't soak the wound in water. This means no tub baths or swimming until it's fully healed. ??? Keep the wound out of prolonged direct sunlight, especially in the summer months. After the wound heals, continue to stay out of direct sunlight, or use a sunscreen with a high level of protection. Sunburn or sun exposure can increase scarring. ??? Check the wound daily for signs of infection listed below. Even with correct treatment, a wound infection may sometimes occur. ?? Follow-up care Follow up with your healthcare provider, or as advised. If you have stitches, be sure to return as directed to have them removed. ?? When to seek medical advice Call your healthcare provider right away??if any of the following occur: ??? Wound bleeding not controlled by direct pressure ??? Signs of infection, including increasing pain in the wound, increasing wound redness or swelling, or pus or bad odor coming from the wound ??? Fever of??100.4??F (38.??C)??or higher, or as directed by your healthcare provider ??? Chills ??? Stitches come apart or fall out or surgical tape falls off before 7 days ??? Wound edges reopen ??? Wound changes colors ??? Numbness or weakness in the affected hand? Decreased movement of the hand, or an individual fingeror part of a finger ?? Last Reviewed Date: 2022 ?? [id number] [employer]. All rights reserved. This information is not intended as a substitute for professional medical care. Always follow your healthcare professional's instructions. ?? CT Upper extremity W contrast IV * [facility] , CIS S: TRANSCRIBE Vimal Torres MD: VERIFY Patricio Lopez MD: SIGN Event Display: Result: Authored Date: [id number] CT Ext Upper W/ Contrast Right HX OF PRESENT ILLNESS: Pt sustained dog bite and has reportedly been noncompliant with rabies vaccination. States he has had 3 beers today.; Reason: Infection; s p dog bite to right dorsal ulnar hand, complaning of worsening pain; Clinical Question(s): Hand; Order Comment: TECHNIQUE: Helical CT with contrast formatted in 3 planes. 100 cc of Omnipaque 300 was administeredintravenously. Weight-based protocol using automatic tube modulation was used to optimize exposure parameters. CTDIvol Body: 8.00 mGy, DLP Body: 214 mGy*cm. COMPARISONS: 09/03/2022 radiographic FINDINGS: Bones and joints: No fracture or dislocation is present. No erosions, productive changes or abnormal calcifications are noted. Soft Tissues: Asymmetric soft tissue stranding and overlying skin thickening along the dorsal aspect of the fifth digit, likely related to the site of dog bite. Apparent ulceration of the skin likelyreflects wound. No discrete abscess. IMPRESSION: 1. No osseous abnormalities. 2. Asymmetric soft tissue edema and overlying skin thickening along the dorsal aspect of the fifth digit, suspicious for cellulitis. No discrete drainable fluid collection. I have personally reviewed the images and I agree with this report. WSN: [id number] Ordering Physician: Jen Dotson Dictated By: Patricio Lopez MD Dictated Date/Time: 09/16/22 8:10 am Reviewed By: Vimal Torres MD Signed By: Vimal Torres MD Signed Date/Time: 09/16/22 8:15 am Transcribed By: STEPHANIE Transcribed Date/Time: 09/15/22 9:49 pm Patient Care team information Care Team Personnel Name: Samuel Saldana MD Position: [facility] Outreach Member Role: PCP Address: Address: [address] [place] [address] [place] [address]- [place] Name: Kel Sesay MD Position: [facility] Resident Member Role: ED Attending Physician Address: Address: [address] [place] [address]- Name: Sujey Seals Position: [facility] ED RN W/OE and Tasks Member Role: Patient Care Provider Name: Jen Dotson MD Position: [facility] Resident Member Role: ED Resident Address: Address: [address] [place] [address]- Care Team Related Persons Name: JOSE SALINAS Address: home [address] [place] [address] Name: DEEPAK MAHONEY Address: home [address] [place] [address]
--- OUTSIDE RECORDS SUMMARY | 2022-09-24 21:40 | XMS_ITS | Continuity of Care Document ---
Author Name Unknown Organization [facility] ter Address [address] [place] [address]- Care Team Providers Care Vegetable Farmworker Name Role Phone Samuel Saldana MD Primary Care Physician [phone] [place] [facility] [place](s[place] 09/03/22 - 09/03/[address] [address]- Encounter Diagnosis Dog bite(Final) - 09/03/22 Discharge Disposition: A-D/C Home Attending Physician: Mackenzie Farfan MD Admitting Physician: Mackenzie Farfan MD Referring Physician: Not on Staff, Referring MD Allergies, Adverse Reactions, Alerts Substance Reaction Severity Status codeine itch Active Immunizations Given and Recorded Vaccine Date Status Refusal Reason rabies vaccine, human diploid cell 09/03/22 Given Rabies Immune Globulin, Human 1 09/03/22 Given tetanus/diphtheria/pertussis, acel(Tdap) 09/03/22 Given 1Result Comment: INFLITRATED AROUND BITE SITE IN HAND AND THEN REMAINDER IN RIGHT DELTOID Medications Augmentin 875 mg-125 mg oral tablet 1 tablet, By Mouth, 2 times a day, for 7 days, # 14 tablet, 0 Refills, Acute 09/10/22 18:18:00 EDT,09/03/22 18:18:00 EDT, [facility], Partial fill upon patient request if the prescription is for a schedule II opioid drug., 182, cm, 08/07... Start Date: 09/03/22 Stop Date: 09/10/22 Status: Ordered Dilaudid Inj 0.5 mg, Injection, IV Push Slowly, Once, STAT, 09/03/22 18:06:00 EDT, Stop date 09/03/22 18:06:00 EDT Start Date: 09/03/22 Stop Date: 09/03/22 Status: Completed Ibuprofen Maintenance, 10/16/10 11:47:38 Start Date: 10/16/10 [...] Sublingual, Daily, dissolve under the tongue. CONRADO-X: [id number], # 14 film, 0 Refills, Maintenance, 08/07/22 22:39:00 EST, Film, [facility], Partial fill upon patient request ifthe prescription is for a schedule II opioid drug.... Start Date: 08/07/22 Stop Date: 08/14/22 Status: Ordered Suboxone 8 mg-2 mg Sublingual Film 2 film, Sublingual, Daily, dissolve under the tongue. CONRADO-X: [id number], # 14 film, 0 Refills, Maintenance, 08/07/22 [...] Exam Date Time Procedure Performing Provider Status 09/03/22 4:46 PM Hand Min 3 Views Right Raghavendra Glass; Auth (Verified) Notes: (Hand Min 3 Views Right) Reason For Exam: Pain RESULT: Hand Min 3 Views Right Right hand, 3 views Reason: Pain; Clinical Question(s): Fracture COMPARISON: Right wrist 09/01/2010 FINDINGS: No fractures or bone lesions. No arthritic changes. Surgical dressing and probable deep laceration adjacent to the 5th metatarsal but no foreign body. IMPRESSION: Laceration but otherwise normal. No fracture or foreign body. WSN: [id number] Ordering Physician: Kaila Flood Dictated By: Stan Guaman MD Dictated Date/Time: 09/03/22 5:12 pm Reviewed By: Stan Guaman MD Signed By: Stan Guaman MD Signed Date/Time: 09/03/22 5:12 pm Transcribed By: STEPHANIE Transcribed Date/Time: 09/03/22 5:11 pm Vital Signs Most recent to oldest [Reference Range]: 1 2 3 Oxygen Saturation [94-100 %] 98 % (09/03/22 9:30 PM) 98 % (09/03/22 7:50 PM) Pulse Rate [55-90 bpm] 90 bpm (09/03/22 9:30 PM) 88 bpm (09/03/22 7:50 PM) 96 bpm *H* (09/03/22 4:25 PM) Blood Pressure [90-138/55-84 mm Hg] 140/72mm Hg *H* (09/03/22 9:30 PM) 143/70mm Hg *H* (09/03/22 7:50 PM) 143/70mm Hg *H* (09/03/22 4:25 PM) Respiratory Rate [16-30 br/min] 18 br/min (09/03/22 9:30 PM) 18 br/min (09/03/22 8:00 PM) 18 br/min (09/03/22 7:50 PM) Temperature [96.8-100.4 DegF] 98 DegF (09/03/22 9:30 PM) 98.1 DegF (09/03/22 7:50 PM) 98.0 DegF (09/03/22 4:25 PM) Mode of Delivery (Oxygen) Room air (09/03/22 9:30 PM) Room air (09/03/22 7:50 PM) Blood pressure sites Arm, right (09/03/22 9:30 PM) Arm, right (09/03/22 7:50 PM) Arm, left (09/03/22 4:25 PM) Temperature Route Oral (09/03/22 9:30 PM) Oral (09/03/22 7:50 PM) Oral (09/03/22 4:25 PM) XR Hand - right GE 3 Views * [facility] , CIS S: TRANSCRIBE Stan Guaman MD: VERIFY Event Display: Result: Authored Date: [id number] Right hand, 3 views Reason: Pain; Clinical Question(s): Fracture COMPARISON: Right wrist 09/01/2010 FINDINGS: No fractures or bone lesions. No arthritic changes. Surgical dressing and probable deep laceration adjacent to the 5th metatarsal but no foreign body. IMPRESSION: Laceration but otherwise normal. No fracture or foreign body. WSN: [id number] Ordering Physician: Kaila Flood Dictated By: Stan Guaman MD Dictated Date/Time: 09/03/22 5:12 pm Reviewed By: Stan Guaman MD Signed By: Stan Guaman MD Signed Date/Time: 09/03/22 5:12 pm Transcribed By: STEPHANIE Transcribed Date/Time: 09/03/22 5:11 pm Patient Care team information Care Team Personnel Name: Samuel Saldana MD Position: [facility] Outreach Member Role: PCP Address: Address: [address] [place] [address] [place] [address]- Name: Kala Archuleta RN Position: [facility] ED RN W/OE and Tasks Member Role: Patient Care Provider Name: Mackenzie Farfan MD Position: [facility] ED Medicine MD Member Role: Admitting Physician Address: Address: [address] [place] [address]- Name: Kaila Flood MD Position: [facility] Resident Member Role: ED Resident Address: Address: [address] [place] [address]- Name: Edward Burnette Position: [facility] ED TA [facility] Member Role: Patient Care Provider Care Team Related Persons Name: JOSE SALINAS Address: home [address] [place] [address] Name: DEEPAK MAHONEY Address: [address] [place] [address]
--- OUTSIDE RECORDS SUMMARY | 2022-09-24 21:40 | XMS_ITS | Continuity of Care Document ---
Author Name Unknown Organization [facility] ter Address [address] [place] [address]- Care Team Providers Care Pecan Picker Name Role Phone Samuel Saldana MD Primary Care Physician [phone] Encounter [facility] [place] Date(s): 08/07/22 - 08/08/[address] [address]- Discharge Disposition: A-D/C Home Attending Physician: Fiona Anton MD Admitting Physician: Fiona Anton MD Referring Physician: Not on Staff, Referring MD Allergies, Adverse Reactions, Alerts Substance Reaction Severity Status codeine itch Active Medications Ibuprofen Maintenance, 10/16/10 11:47:38 Start Date: [...] Sublingual, Daily, dissolve under the tongue. CONRADO-X: [id number], # 14 film, 0 Refills, Maintenance, 08/07/22 22:39:00 EST, Film, [facility], Partial fill upon patient request ifthe prescription is for a schedule II opioid drug.... Start Date: 08/07/22 Stop Date: 08/14/22 Status: Ordered Suboxone 8 mg-2 mg Sublingual Film 2 film, Sublingual, Daily, dissolve under the tongue. CONRADO-X: [id number], # 14 film, 0 Refills, Maintenance, 08/07/22 23:29:00 EST, Film, [facility], Partial fill upon patient requestif the prescription is for a schedule II opioid drug.,... Start Date: 08/07/22 Stop Date: 08/14/22 Status: Ordered Problem List Condition Confirmation Course Effective Dates Status Health St atus Informant Fracture of facial bone Confirmed Active Vital Signs Most recent to oldest [Reference Range]: 1 2 Height 182 cm (08/07/22 8:26 PM) Weight 82 kg (08/07/22 8:26 PM) Oxygen Saturation [94-100 %] 97 % (08/07/22 11:33 PM) 98 % (08/07/22 8:46 PM) Pulse Rate [55-90 bpm] 97 bpm *H* (08/07/22 11:33 PM) 102 bpm *H* (08/07/22 8:46 PM) Blood Pressure [90-138/55-84 mm Hg] 123/ 64mm Hg (08/07/22 11:33 PM) 115/77mm Hg (08/07/22 8:46 PM) Respiratory Rate [16-30 br/min] 18 br/mi n (08/07/22 11:33 PM) 19 br/min (08/07/22 8:46 PM) Temperature [96.8-100.4 DegF] 97.8 DegF (08/07/22 11:33 PM) 97.4 DegF (08/07/22 8:46 PM) Temperature Route Oral (08/07/22 11:33 PM) Oral (08/07/22 8:46 PM) Note * Sloane MEJIA, Fiona Herrera: PERFORM Event Display: Patient Education Leaflets Authored Date: Home Induction Discharge Instructions ?? 157 Home Induction Discharge Instructions ?? GENERAL INFORMATION You were evaluated in the Emergency Department and treated for Opioid Use Disorder. Opioid Use Disorder is a medical illness; by agreeing to start medication, buprenorphine, you have taken a big steptoward getting better. Below is information about opioid use disorder and buprenorphine. ?? Opioid Use Disorder: Opioids change the chemistry of the brain, making it nearly impossible to live and work without constantly feeling the urge to use opioids. Our goal is to help you recover and be able to live and work normally. Buprenorphine is an important medication in the treatment of Opioid Use Disorder. In addition to helping to normalize your brain chemistry and reduce the urge to use opioids, buprenorphine can also help reduce the harm and danger of using heroin or pain pills. ?? Buprenorphine: Buprenorphine is medicine for people who have chronic pain or addiction to opioids (heroin or pain pills). Many people know it by brand names like Suboxone?? and Subutex??. Buprenorphine helps get rid of cravings and withdrawal, without making you feel high. People live longer and have fewer overdoses when they take buprenorphine. It is a safe medicine that has been in use for 30 years. Taking buprenorphine is not substituting one drug for another??? it is a medicine that you may need to stay healthy. ?? How to Take Buprenorphine? Buprenorphine or Suboxone, whether the pill or film, must be dissolved under the tongue for 10 minutes. DO NOT SWALLOW OR CHEW the buprenorphine, because it will not work. You should start to feel the effects of the buprenorphine within 30 minutes ?? Please Return to the Emergency Department: If you have continued craving for opioids even though you are taking buprenorphine. If you have relapsed on heroin or pain pills ??? relapse is part of recovery, we will work to help you to get better and back on track. ?? Follow Up: We will call you in 1-3 days to ask how you are feeling and work to connect you with a long-term clinic to continue your treatment. ? HOME DISCHARGE INSTRUCTIONS You have been given a prescription for Buprenorphine (Suboxone) to be started at home. Please follow the instructions below. ?? Before starting buprenorphine, you want to feel lousy from withdrawal The worse you feel when you start buprenorphine, the better it will make you feel and the more it will help you. It should be at least 12 hours since you used heroin or pain pills (OxyContin, Vicodin, etc.). ?? You should have at least 3 of the following before starting buprenorphine: Twitching, tremors, shaking Joint and bone aches Bad chills or sweating Anxious or irritable Stomach cramps, nausea, vomiting or diarrhea ?? Day 1 Dosing ??? Take 4 mg (one half of the film) and place under your tongue for 10 minutes ??? Wait 1 hour. If you feel good, you can stop. Your dose is 4mg. If you still feel bad, you can take another 4mg (half of the film) Wait 1 hour If you feel good, you can stop. Your dose is 8mg. If you still feel bad, you can take another 4mg (half of the film) The maximum dose for day 1 is 12mg (three ?? films) Day 2 Dosing If you took 4mg or 8mg on day 1 and felt good, start with 8mg (one film) on day 2 Wait 4 hours If you still feel bad, you can take another 4mg for a total of 12mg on day 2 If you took 12mg on day 1, start with 16mg (two full films) on day 2. Day 3 Dosing and beyond If your day 2 dose was 4mg or 8mg and you feel good, take 8mg (one film) on day 3 and beyond. If you needed 12mg or 16mg on day 2, start with 16mg (two films) on day 3 and beyond. ?? QUESTIONS: If you have any questions about how to take buprenorphine, or believe you are still feeling cravings to use heroin or other opioids or are experiencing withdrawal symptoms, please call theformerly [facility] department at the following numbers. Between 9:00am-4:00pm call [phone] to speak to the Follow Up Nurse. From 4:00pm 9:00am call [phone] to speak to an emergency department client account representative. ?? RESOURCES TO TREAT OPIOID USE DISORDER ?? [facility] Needle Exchange Program If you are not ready to stop using injection drugs, [facility] provides unused needles, Narcan, and education on how to prevent overdose and infection. ?? [facility] [address] [place], [place] ?? [facility] 15A [facility] extension 1 ?? Community Health Centers that offer Suboxone If you have a primary doctor in any of the following locations, they will be able to help you continue buprenorphine (Suboxone) ?? [facility] [address] [place] [address] ?? [facility] [address] [place] [address] ?? [facility] [address] [place] [address] Direct Line: [phone] ?? [facility] [address] [place] [address] ?? [facility] [address] [place] [address] ?? [facility] [address] [place] [address] ?? RESOURCES TO TREAT OPIOID USE DISORDER ?? Suboxone Clinics Standalone Private clinics willing to accept new patients. Of note, the Suboxone clinics below usually require a photo ID and Insurance ?? Clinical Registered [facility] [address] [facility] [address] P: [phone] ?? [facility] [address] [place] [address] ?? [facility] [address] [facility] [address] [place] [address] Central Line: [phone] ?? [facility] [address] [place] [address] ?? [facility] [address] [place] [address] ?? [facility] [address] [place] [address] ?? [facility] [address] [place] [address] ?? ADDITIONAL RESOURCES ?? Transportation If transportation is a challenge for you, there may be options available at low or no cost. Some organizations, like [employer], help people with transportation through their case management teams. If you are on [facility], you are eligible to have PT-1 transportation to your medical appointments at clinics or doctors??? offices. Call your primary care provider or clinic to ask for help with transportation as soon as possible. ?? Insurance [place] Medicaid ([employer]) will pay for a Suboxone prescription. Eligibility for [facility] depends on your income and assets. ?? Applying for [facility]. [facility]rollment [facility] [address] [facility], [place] [address] ?? Enrollment Hotline: For more information or to enroll online: [email or web address].gov/topics/[facility]health . Medicare may payfor some or all of your prescription, depending on the Medicare plan you are signed up for. To be eligible you must be over 65 or have a permanent disability. Medicare Part A/B will cover buprenorphine given in a facility such as a detox or early stabilization program. Medicare Part C/D may have copays that range depending on the plan. For advice and information, speak with a CASI counselor at your local elder services organization or by calling . ?? [address], [address] [place], [place]. ?? If you have Private Health Insurance,, you should call the hotline number on the back of your insurance card for more information on coverage and co-pays. ?? If you need to obtain a Photo ID or are having difficulty obtaining Insurance ?? [facility] Financial Services (insurance) Can assist with applying for?? insurance [facility] [address] [place], [place] [facility] (To obtain a Photo ID) [address] [place] [address] ?? ADDITIONAL RESOURCES ?? Counseling and Recovery ?? Detox Even if you start buprenorphine from the emergency department, it may be beneficial to go into a formal detox program. For more information on detox placement, please reach out to the [facility] Emergency Department Drapery Sewer Hand at [phone]. ?? Outpatient Counseling Resources ?? [place] [facility] ([facility]) - [phone]-HELP?? ([phone]) [email or web address]/ Locations: [facility], [place], [place] *Languages: Moroccan, Polish, Northern Irish, and Uzbek * Outreach therapy available * ?? Clinical Support Options (GLASS ETCHER HELPER) - [phone] [email or web address] Locations: [place], [place], [place], [place], [place] *Has walk-in appointments* ?? [facility] ([facility]) - [phone] [email or web address]/ Locations: [place] (multiple locations), [place] * Polish-language * Walk-in appointments available * Outreach therapy available * ?? [facility] - [phone] [email or web address]://[email or web address]./ Locations: [facility] *Polish-language * Outreach therapy available * ?? ADDITIONAL RESOURCES ?? Recovery Coaching Programs Recovery Coaches are peer-lead programs where you meet with someone in the community to help you navigate and plan your recovery. Recovery coaches are free and do not require insurance. ?? [facility] Recovery and Peer Support [address] [place] [address] ; [phone] [email or web address] ?? [facility] [address] [place], [place] ; [phone] [email or web address] ?? [facility] Recovery Coaching and Case Management Services -Kaity Montes [address] [place] [address] ?? The RECOVER Project - Elina Laboy [address] [place] [phone] www.[email or web address] ?? [facility] ?? - Aracely Kwong [address] [place] [address] [email or web address] ?? [facility] of [address] [phone]; [email or web address] ?? [facility] - Rosa Cordova???[address] Open Thursday and Thursday 1:00-4:00 [email or web address] [email or web address] ? ADDITIONAL RESOURCES ?? Intensive Outpatient Programs Programs that have scheduled meetings, sessions and workshops. Allows patients to still work and complete in daily home activities while also participating in treatment ?? [facility] [place] [address] [place], [place] [phone] [email or web address] ?? [facility] SOAP Program - Dian Maldonado [address] [place], [place] [phone] ?? [facility] [address] [place], [place] [phone] www.ioGeneticsClan of the [facility].Gdd Hcanalytics ?? [facility] [address] [place], [place] [phone] www.Socialtext ?? JOSELYN [facility] Intensive Outpatient Program [address], [address] [place], [place] [phone] [email or web address] ?? [facility] [address] [place], [place] [phone] www.[email or web address] ?? Clinical Support Options www.[email or web address] [address], [place], [place] [phone] [address] [place], [place] [phone] ? Tips to Stay Healthy for People who Inject Drugs .?? You have been seen at the [facility] Emergency Department for a problem related to Injection Drug Use. Risks of injecting drugs include: ? Damage to blood vessels ??? Painful skin infections like cellulitis and abscesses ??? Dangerousbloodstream infections that can damage your organs, including your heart and spinal cord ??? Becoming infected with a virus including Hepatitis C and HIV (the virus that causes AIDS)? Overdose and ?? The best way to lower the risks of injecting drugs is to begin treatment with medications like Buprenorphine (Suboxone), Methadone or Naltrexone. If you are interested in treatment, we have phone numbers of medical office professional instructor that can help you start or continue treatment (below).? However , if you are not yet ready to stop injecting drugs, there are things you can do to keep yourself healthy. Below are tips to help you stay healthy and decrease the dangers of injecting drugs. ?? 1)? Try to use a new needle every time you inject. NEVER share needles. Viruses like Hepatitis can live on used needles for hours to days. Reusing the same needle will dull the needle tip, leading to trauma to the blood vessels and more painful injecting.? Never share needles ??? Try to use a new, unused needle every time you inject You can get free unused needles at [facility] Syringe Access Sites Many drug stores, like [facility], sell unused insulin needles . Do not sharpen an old needle ??? it creates barbs that can damage your skin and blood vessels. If you must share a needle, cleaning it before use may reduce the risk of infection. Flush it with sterile water. If you don???t have sterile water, use cold tap water. Fill the syringe with household bleach. Shake for 2 minutes. If you don???t have bleach, you can use rubbing alcohol or hydrogen peroxide Flush it with water again ?? 2)? Use sterile water to mix your drugs. Tap water contains bacteria that can cause an infection when injected. Use sterile water or sterile saline if possible. You can get sterile water at [facility] Syringe Services Sites Many drug stores, like [employer], sell sterile water. If you do not have sterile water, you can boil water for 10 minutes. Let the water cool before injecting. ?? 3)? Wipe your skin with an alcohol pad before you inject Even with unused needles and sterile water, bacteria on your skin can be pushed into your blood when injecting. Wash your hands with soap and water before injecting. When you are ready to inject, rub your skin with an alcohol wipe to kill the bacteria on your skin. ?? 4)? Rotate Injection Sites Using the same site many times can cause scarring, bruising and infection. Rotate injection sites, using different sides and different veins. If you are using the same vein, inject at least one inch away from the previous site. Avoid the veins in your neck, groin and feet. ? 5)? Reduce your risk of overdose Most heroin contains fentanyl, a powerful drug that causes many deaths. Here are best practices youcan do to reduce your risk of dying from an overdose Whenever possible, use with a trusted friend or partner. Take turns injecting Narcan can save your life if you overdose. Have Naloxone (Narcan) at arm???s reach when you inject.Make sure your partner knows where the Narcan is and how to use it in case of an overdose You can get Narcan for free at [facility] Syringe Services Sites Drug stores, like [employer], provide Narcan without a prescription Do not mix heroin with alcohol or other drugs. If you have not used drugs in a long time, or if you are buying from a new dealer, your body may not be used to the strength of the drug. You should: Start with a lower dose. Consider using a ???rodger shot?? , injecting a small amount first to make sure the drug is not toostrong, before you inject your regular dose . If you must use alone, find a place where someone would see you if you had an overdose. Do not use in a locked bathroom. ?? 6)? If you see an overdose: Call 911! Signs of overdose include slow breathing, blue face or lips, or if you are unable to wake the person. If you suspect an overdose CALL 911 immediately! Give Narcan if you have it DO NOT try to inject salt water, inject stimulant drugs, or put the victim in a cold-water bath. ? [facility] Syringe Service Sites are an important resource [employer] provides free supplies for people who inject drugs, including: Naloxone (NARCAN), unused needles, sterile water, alcohol pads, cookers and tourniquets. They will help teach you how to inject safely to reduce the risk of complications They can help you find treatment, support and resources to improve your life. ?? [facility] Syringe Service Sites in [facility] ?? [address] [place], [place] 15A [facility] extension 1 ?? [facility] Emergency Department can help! The Emergency Department at [facility] has physicians, social workers, nurses, mental health and financial counselors with experience in treating patients with opioid use disorder. ?? Between 9:00am-4:00pm call [phone] to speak to the Follow Up Nurse. From 4:00pm-9:00am call [phone] to speak to an emergency department client account representative. If you feel unsafe, are ready for treatment immediately, or have any emergency, we are available 05/01 to help you. ? Patient Care team information Care Team Personnel Name: Samuel Saldana MD Position: S Outreach Member Role: PCP Address: Address: [address] [place] [address]- [place] Name: Michael Abrams Position: [facility] ED TA [facility] Member Role: ED Associate Name: Fiona Anton MD Position: [facility] ED Medicine MD Member Role: ED Attending Physician Address: Address: [address] [place] [address] [place] [address]- Name: Ingris Cleary RN Position: [facility] ED RN W/OE and Tasks Member Role: Patient Care Provider Care Team Related Persons Name: JOSE SALINAS Address: home [address] [place] [address] Name: ELINA MAHONEY Address: home [address] [place] [address]
--- OUTSIDE RECORDS SUMMARY | 2022-09-24 21:40 | XMS_ITS | Continuity of Care Document ---
Author Name Unknown Organization [facility] ter Address [address] [place] [id number]- Care Team Providers Care Scientist Name Role Phone Not on Staff, PCP Primary Care Physician Unavail able Encounter [facility] Date(s): 07/25/22 - 07/26/[address] [address]- Discharge Disposition: A-D/C Home Attending Physician: Varinder Guerrero MD Admitting Physician: Varinder Guerrero MD Referring Physician: Not on Staff, Referring [...] Refills, Maintenance Start Date: 09/01/10 Status: Ordered Problem List Condition Confirmation Course Effective Dates Status [facility] atus Informant Fracture of facial bone Confirmed Active Results Radiology Reports * Exam Date Time Procedure Performing Provider Status 07/25/22 9:06 PM Chest 2 Views Frontal and Lat Pablo Howard; Auth (Verified) Notes: (Chest 2 Views Frontal and Lat) Reason For Exam: Shortness of Breath;Other: RESULT: Chest 2 Views Frontal and Lat Chest 2 Views Frontal and Lat Hx of Present Illness: pt presents to ED from home with c c of left sided rib pain. Reports he slipped and fell on ice 4 weeks ago diagnosed with 4 rib fractures. PT reports increased pain and discomfort. PT reports + etoh, reports 3 large beers. Denies SI HI. Denies sob or jose; Reason: Other:; Shortness of Breath; Clinical Question(s): Trauma COMPARISON: None. FINDINGS: LINES AND TUBES: None. LUNGS AND PLEURA: Clear lungs. Normal pulmonary vascularity. No pleural effusion. No pneumothorax. HEART, MEDIASTINUM AND KIRSTEN: Heart is normal in size. Normal mediastinal and hilar contour. BONES AND SOFT TISSUES: No acute abnormality. IMPRESSION: No acute abnormality. WSN: [id number] Ordering Physician: Vivian Boo Dictated By: Jimmie Bullard MD Dictated Date/Time: 07/25/22 9:13 pm Reviewed By: Jimmie Bullard MD Signed By: Jimmie Bullard MD Signed Date/Time: 07/25/22 9:13 pm Transcribed By: STEPHANIE Transcribed Date/Time: 07/25/22 9:12 pm Vital Signs Most recent to oldest [Reference Range]: 1 2 3 Oxygen Saturation [94-100 %] 97 % (07/26/22 6:21 AM) 97 % (07/26/22 2:14 AM) 99 % (07/25/22 5:39 PM) Pulse Rate [55-90 bpm] 102 bpm *H* (07/26/22 6:21 AM) 106 bpm *H* (07/26/22 2:15 AM) 106 bpm *H* (07/26/22 2:14 AM) Blood Pressure [90-138/55-84 mm Hg] 150/77mm Hg *H* (07/26/22 6:21 AM) 154/78mm Hg *H* (07/26/22 2:15 AM) 154/78mm Hg *H* (07/26/22 2:14 AM) Respiratory Rate [16-30 br/min] 16 br/min (07/26/22 6:21 AM) 18 br/min (07/26/22 2:15 AM) 18 br/min (07/26/22 2:14 AM) Temperature [96.8-100.4 DegF] 99.3 DegF (07/26/22 6:21 AM) 97.9 DegF (07/26/22 2:15 AM) 97.9 DegF (07/26/22 2:14 AM) Mode of Delivery (Oxygen) Room air (07/26/22 6:21 AM) Room air (07/26/22 2:14 AM) Room air (07/25/22 5:39 PM) Blood pressure sites Arm, left (07/26/22 2:14 AM) Arm, left (07/25/22 5:39 PM) Temperature Route Oral (07/26/22 2:15 AM) Oral (07/26/22 2:14 AM) Oral (07/25/22 5:39 PM) Note * Elly Lopez RN: PERFORM, SIGN, VERIFY Event Display: Patient Education Handout Authored Date: [id number] * [facility]SPowerscribe , BRANDY S: TRANSCRIBE Jimmie Bullard MD: VERIFY Event Display: Result: Authored Date: Chest 2 Views Frontal and Lat Hx of Present Illness: pt presents to ED from home with c c of left sided rib pain. Reports he slipped and fell on ice 4 weeks ago diagnosed with 4 rib fractures. PT reports increased pain and discomfort. PT reports + etoh, reports 3 large beers. Denies SI HI. Denies sob or jose; Reason: Other:; Shortness of Breath; Clinical Question(s): Trauma COMPARISON: None. FINDINGS: LINES AND TUBES: None. LUNGS AND PLEURA: Clear lungs. Normal pulmonary vascularity. No pleural effusion. No pneumothorax. HEART, MEDIASTINUM AND KIRSTEN: Heart is normal in size. Normal mediastinal and hilar contour. BONES AND SOFT TISSUES: No acute abnormality. IMPRESSION: No acute abnormality. WSN: [id number] Ordering Physician: Vivian Boo Dictated By: Jimmie Bullard MD Dictated Date/Time: 07/25/22 9:13 pm Reviewed By: Jimmie Bullard MD Signed By: Jimmie Bullard MD Signed Date/Time: 07/25/22 9:13 pm Transcribed By: STEPHANIE Transcribed Date/Time: 07/25/22 9:12 pm Patient Care team information Care Team Personnel Name: Not on Staff, PCP Position: [facility] Physician (General Medicine) Member Role: PCP Name: *S, ED Attending Position: [facility] ED Attendings Patient Name: Eva Levine RN Position: [facility] ED RN W/OE and Tasks Member Role: Patient Care Provider Name: Brigid Tavarez Position: [facility] ED [facility] Name: John ALEXANDER, Elly Position: [facility] ED RN W/OE and Tasks Member Role: Patient Care Provider Name: Varinder Guerrero MD Position: [facility] Resident Member Role: Admitting Physician Address: Address: [address] [place] [address] [place] [address]- Care Team Related Persons Name: JOSE SALINAS Address: home [address] [place] [address] Name: DEEPAK MAHONEY Address: home [address] [place] [address]
--- OUTSIDE RECORDS SUMMARY | 2022-09-24 21:40 | XMS_ITS | Continuity of Care Document ---
Author Name Unknown Organization [facility] ter Address [address] [place] [address]- Care Team Providers Care Bus Repair Supervisor Name Role Phone Samuel Saldana MD Primary Care Physician Encounter [facility] Date(s): 09/04/22 - 09/04/[address] [address]- Discharge Disposition: A-D/C Home Attending Physician: Yang Linares MD Admitting Physician: Yang Linares MD Referring Physician: Not on Staff, Referring [...] Date: 09/03/22 Stop Date: 09/10/22 Status: Ordered Ibuprofen Maintenance, 10/16/10 11:47:38 Start Date: 10/16/10 Status: Ordered Metformin By Mouth, 0 Refills, Maintenance, 01/07/21 11:33:00 EDT, Partial fill upon patient request if the prescription is for a schedule II opioid drug. Start Date: 01/07/21 Status: Ordered MorPHINE Immediate Release Tablet 15 mg, Tablet, By Mouth, Once, PRN for Pain , Moderate, YARI, 09/04/22 11:01:00 EDT Start Date: 09/04/22 Stop Date: 09/04/22 Status: Completed oxyCODONE 5 mg oral tablet 5 mg, 1, tablet, By Mouth, Every 6 hours, PRN, # 3 tablet, Refills 0, Tot. Refills 0, Acute 09/08/22 12:00:00 EDT, as needed for pain, 09/04/22 12:18:00 EDT, Route to Pharmacy Electronically, [facility], Partial fill upon patient request... Start Date: 09/04/22 Stop Date: 09/08/22 Status: Ordered Percocet-5/325 325 mg-5 mg oral tablet 1 tablet, By Mouth, Every 4 hours, PRN Pain, # 24 tablet, 0 Refills, Maintenance Start Date: 09/01/10 Status: Ordered Suboxone 8 mg-2 mg Sublingual Film 2 film, Sublingual, Daily, dissolve under the tongue. CONRADO-X: [id number], # 14 film, 0 Refills, Maintenance, 08/07/22 22:39:00 EST, Film, [facility], Partial fill upon patient request ifthe prescription is for a schedule II opioid drug.... Start Date: 08/07/22 Stop Date: 08/14/22 Status: Ordered Suboxone 8 mg-2 mg Sublingual Film 2 film, Sublingual, Daily, dissolve under the tongue. CONRADO-X: [id number], # 14 film, 0 Refills, Maintenance, 08/07/22 [...] Exam Date Time Procedure Performing Provider Status 09/04/22 5:49 AM Chest Portable Sonya Rodriguez; Justin (Verified) Notes: (Chest Portable) Reason For Exam: Shortness of Breath RESULT: Chest Portable Chest Portable Hx of Present Illness: midsternal cp since midnight. vague. Agitated with staff upon arrival. Left around 2200, seen treated for a dog bite. I don't know, just look me up asked pt if he had been drinking he states I had one beer, why don't you just check my blood ; Reason: Shortness of Breath; Clinical Question(s): CHF COMPARISON: None. FINDINGS: LUNGS AND PLEURA: Clear lungs. Normal pulmonary vascularity. No pleural effusion. No pneumothorax. HEART, MEDIASTINUM AND KIRSTEN: Heart is normal in size. Normal mediastinal and hilar contour. BONES AND SOFT TISSUES: No acute abnormality. IMPRESSION: No acute abnormality. WSN: [id number] Ordering Physician: Alejandra Saldivar Dictated By: Doyle Maravilla MD Dictated Date/Time: 09/04/22 7:35 am Reviewed By: Doyle Maravilla MD Signed By: Doyle Maravilla MD Signed Date/Time: 09/04/22 7:35 am Transcribed By: STEPHANIE Transcribed Date/Time: 09/04/22 7:34 am Vital Signs Most recent to oldest [Reference Range]: 1 2 3 Oxygen Saturation [94-100 %] 98 % (09/04/22 3:19 PM) 97 % (09/04/22 1:26 PM) 97 % (09/04/22 9:30 AM) Pulse Rate [55-90 bpm] 82 bpm (09/04/22 3:19 PM) 89 bpm (09/04/22 1:26 PM) 87 bpm (09/04/22 9:30 AM) Blood Pressure [90-138/55-84 mm Hg] 152/67mm Hg *H* (09/04/22 3:19 PM) 162/67mm Hg *H* (09/04/22 1:26 PM) 145/63mm Hg *H* (09/04/22 9:30 AM) Respiratory Rate [16-30 br/min] 20 br/min (09/04/22 3:19 PM) 18 br/min (09/04/22 1:26 PM) 18 br/min (09/04/22 1:24 PM) Temperature [96.8-100.4 DegF] 98.2 DegF (09/04/22 3:19 PM) 98.5 DegF (09/04/22 4:26 AM) Mode of Delivery (Oxygen) Room air (09/04/22 3:19 PM) Room air (09/04/22 1:26 PM) Room air (09/04/22 9:30 AM) Blood pressure sites Arm, left (09/04/22 3:19 PM) Arm, left (09/04/22 1:26 PM) Arm, right (09/04/22 9:30 AM) Temperature Route Oral (09/04/22 3:19 PM) Oral (09/04/22 4:26 AM) EKG study * Event Display: ECG 12-Lead Authored Date: Please click on pdf link to open report * Event Display: ECG 12-Lead Authored Date: Ventricular Rate: 87 BPM Atrial Rate: 87 BPM P-R Interval: 146 ms QRS Duration: 90 ms Q-T Interval: 386 ms QTC Calculation(Bazett): 464 ms P Greenleaf: 59 degrees R Greenleaf: -4 degrees T Greenleaf: 27 degrees Normal sinus rhythm Poor R wave progression in V1-V2 may be normal variant or due to septal infarct or misplaced leads When compared with ECG of 07-JAN-2021 12:37, No significant change was found Confirmed by ZEYNEP MARTINES MD ([id number]) on 09/04/2022 9:46:52 AM [place]: ZEYNEP MARTINES MD * Event Display: EKG Authored Date: [id number] Note * Radha Flores DO: PERFORM Event Display: Patient Education Leaflets Authored Date: [id number] Dog Bite ?? [id number] Dog Bite A dog bite can cause [...] for signs of illness. (If the pet general dentist/owner won???t allow this, contact your local animal [...] pressure ?? Last Reviewed Date: 2021 ?? [id number] [employer]. All rights reserved. This information is not intended as a substitute for professional medical care. Always follow your healthcare professional's instructions. ?? * Radha Flores DO: PERFORM Event Display: Patient Education Leaflets Authored Date: [id number] Uncertain Causes of Chest Pain ?? [id number] Uncertain Causes of Chest Pain Chest pain can happen for a number of reasons. Sometimes the cause can't be determined. If your??condition does not seem serious, and your pain does not appear to be coming from your heart, your healthcare provider may recommend watching it closely. Sometimes the signs of a serious problem take more time to appear. Many problems not related to your heart can cause chest pain. These include: ??? Musculoskeletal. Costochondritis is an inflammation of the tissues around the ribs that can occur from trauma or overuse injuries, or a strain of the muscles of the chest wall. ??? Respiratory. Pneumonia, collapsed lung (pneumothorax), or inflammation of the lining of the chest and lungs (pleurisy). ??? Gastrointestinal. Esophageal reflux, heartburn, ulcers, or gallbladder disease. ??? Anxiety and panic disorders ??? Nerve compression and inflammation ??? Rare problems such as aortic aneurysm or aortic dissection (a swelling of the large artery coming out of the heart or a tear in the wall of the artery), or pulmonary embolism (a blood clot in the lungs). Home care After your visit, follow these recommendations: ??? Rest today and avoid strenuous activity. ??? Take any prescribed medicine as directed. ??? Be aware of any recurrent chest pain and notice any changes ?? Follow-up care Follow up with your healthcare provider if you don't start to feel better within 24 hours, or as advised. ?? Call 911 Call 911 if any of these occur: ??? A change in the type of pain: if it feels different, becomes more severe, lasts longer, or begins to spread into your shoulder, arm, neck, jaw or back ??? Shortness of breath or increased pain with breathing ??? Weakness, dizziness, or fainting ??? Rapid heartbeat ??? Crushing sensation in your chest ??? Coughing up more than a small amount of blood. ?? When to seek medical advice Call your healthcare provider right away if any of the following occur: ??? Cough with dark coloredsputum (phlegm) or small amount of blood ??? Fever of 100.4??F??(38??C) or higher, or as directed by your healthcare provider ??? Swelling, pain or redness in one leg ?? Last Reviewed Date: 2021 ?? [id number] [employer]. All rights reserved. This information is not intended as a substitute for professional medical care. Always follow your healthcare professional's instructions. ?? Portable XR Chest Views * BHSPowerscribe , CIS S: TRANSCRIMAURIZIO Maravilla MD, Doyle Marino: VERIFY Event Display: Result: Authored Date: [id number] Chest Portable Hx of Present Illness: midsternal cp since midnight. vague. Agitated with staff upon arrival. Left around 2200, seen treated for a dog bite. I don't know, just look me up asked pt if he had been drinking he states I had one beer, why don't you just check my blood ; Reason: Shortness of Breath; Clinical Question(s): CHF COMPARISON: None. FINDINGS: LUNGS AND PLEURA: Clear lungs. Normal pulmonary vascularity. No pleural effusion. No pneumothorax. HEART, MEDIASTINUM AND KIRSTEN: Heart is normal in size. Normal mediastinal and hilar contour. BONES AND SOFT TISSUES: No acute abnormality. IMPRESSION: No acute abnormality. WSN: [id number] Ordering Physician: Alejandra Saldivar Dictated By: Doyle Maravilla MD Dictated Date/Time: 09/04/22 7:35 am Reviewed By: Doyle Maravilla MD Signed By: Doyle Maravilla MD Signed Date/Time: 09/04/22 7:35 am Transcribed By: STEPHANIE Transcribed Date/Time: 09/04/22 7:34 am Patient Care team information Care Team Personnel Name: Samuel Saldana MD Position: [facility] Outreach Member Role: PCP Address: Address: [address] [place] [address] Samuel Sald[place], [place] [address] Name: Elina Blanco RN Position: [facility] ED RN W/OE and Tasks Member Role: Patient Care Provider Name: Ana Love Position: [facility] ED [facility] Name: Yang Linares MD Position: [facility] ED Medicine MD Member Role: Admitting Physician Address: Address: [address] [place] [address]- Name: Radha Flores DO Position: [facility] Resident Member Role: ED Resident Address: Address: [address] [place] [address]- Name: Jen Lauren Position: [facility] ED [facility] Member Role: Counselor Care Team Related Persons Name: JOSE SALINAS Address: home [address] [place] [address] Name: ELINA MAHONEY Address: home [address] [place] [address]
[2022-09-24 22:00] VITALS: BP 136/74; PULSE 74; RESP 16; TEMP 36.7; O2SAT 98
--- NOTE | 2022-09-24 22:10 | MHC.EDTECH ---
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
--- NOTE | 2022-09-24 22:37 | ED_ITS ---
HPI - Alcohol General Chief Complaint: ETOH/Substance Use Stated Complaint: ETOH Time Seen by Provider: 09/24/22 21:52 Source: patient Mode of arrival: EMS Limitations: no limitations History of Present Illness HPI narrative: Patient alcoholic be in here frequently history of dog bite the right hand about 3 weeks ago take Augmentin comes here as he was found sleeping outside the package showed after arrival in the ER physician asking to change the dressing of the right hand. Related Data Home Medications Medication Instructions Recorded Confirmed amlodipine 5 mg tablet 5 mg PO DAILY 10/21/21 08/25/22 atorvastatin 10 mg tablet 10 mg PO DAILY 10/21/21 08/25/22 metformin 500 mg tablet 500 mg PO BID 10/21/21 08/25/22 metoprolol succinate 50 mg 50 mg PO DAILY 10/21/21 08/25/22 tablet,extended release 24 hr omeprazole 20 mg capsule,delayed 20 mg PO DAILY 10/21/21 08/25/22 release Previous Rx's Medication Instructions Recorded folic acid 1 mg tablet 1 mg PO DAILY #30 tabs 10/21/21 thiamine HCl (vitamin B1) 50 mg 50 mg PO DAILY #30 tabs 10/21/21 tablet naproxen 500 mg tablet (Naprosyn) 500 mg PO BID #20 tabs 08/05/22 naproxen 500 mg tablet 500 mg PO BID PRN pain 10 days #20 08/25/22 tabs amoxicillin 875 mg-potassium 1 tab PO BID #20 tabs 09/17/22 clavulanate 125 mg tablet cefuroxime axetil 500 mg tablet 500 mg PO BID #20 tabs 09/25/22 doxycycline hyclate 100 mg tablet 100 mg PO BID #20 tabs 09/25/22 Allergies Allergy/AdvReac Type Severity Reaction Status Date / Time bee pollen [BEE STINGS] Allergy Intermediate SWELLING Verified 09/16/22 22:12 polyethylene glycol Allergy Unknown Swelling Verified 09/16/22 22:12 [Golytely] polyethylene glycol 3350 Allergy Unknown Unknown Verified 09/16/22 22:12 [Golytely] potassium chloride [Golytely] Allergy Unknown Unknown Verified 09/16/22 22:12 sodium [Golytely] Allergy Unknown Unknown Verified 09/16/22 22:12 sodium bicarbonate [Golytely] Allergy Unknown Unknown Verified 09/16/22 22:12 sodium chloride [Golytely] Allergy Unknown Unknown Verified 09/16/22 22:12 sodium sulfate [Golytely] Allergy Unknown Unknown Verified 09/16/22 22:12 Review of Systems Review of Systems: Yes all other systems are reviewed and are negative [facility] Past Medical History Medical History Diabetes GERD (gastroesophageal reflux disease) Surgical History Hx of pelvic surgery Social History Social History Alcohol intake: current Alcohol intake frequency: 3 or more drinks per day Alcohol type: beer Patient Tobacco Use Status: Never used Tobacco Advance Directives: No Advance Directives Information Provided: No Current occupational status: unemployed 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 Oriented X3. No acute distress. Intoxicated Eyes: PERRLA, No Nystagmus ENT: Pharynx normal. Oral Mucosa moist Neck: Normal inspection. Neck supple. CVS: Normal heart rate and rhythm. Pulses normal. Respiratory: No respiratory distress. Equal air entry bilateral, no wheezing/rales/rhonchi Abdomen: Soft and nontender. Bowel sounds are present, no mass palpable, Skin: Skin warm and dry. Normal skin color. Normal skin turgor. Extremities: No lower extremity edema. No calf tenderness right hand with secondary healing dog bite with black Eschar in the center Neuro: Oriented X 3. No motor deficit. No sensory deficit.No cerebellar signs , cranial nerves II-XII intact Medical Decision Making Medical Decision Making MDM Narrative: Patient with frequent ED visits refusing go to detox discharge patient home rest follow with wound added doxycycline and Ceftin Lab Data Labs: Lab Results 09/24/22 Range/Units 22:15 POC Glucose 115 (60-115) mg/dL Medications Administered Discontinued Medications Generic Name Dose Route Start Last Admin Trade Name Katherine PRN Reason Stop Dose Admin Amoxicillin/Clavulanate Potassium 875 mg 09/24/22 22:40 09/24/22 22:47 Amoxicillin/Potassium Clav 875 Mg Tablet PO 09/24/22 22:41 875 mg ONCE ONE Administration Bacitracin 1 appl 09/24/22 22:40 09/24/22 22:47 Bacitracin Oint 0.9 Gm Packet TOPICAL 09/24/22 22:41 1 appl ONCE ONE Administration Protocol Doxycycline Monohydrate 100 mg 09/24/22 22:40 09/24/22 22:47 Doxycycline Monohydrate 100 Mg Capsule PO 09/24/22 22:41 100 mg ONCE ONE Administration Discharge Plan Discharge Clinical Impression: Alcoholic intoxication, Open dog bite of hand Patient Disposition: Home, Self-Care Instructions: Animal Bite (ED), Abuse of Alcohol (ED) Additional Instructions: Stop drinking alcohol Antibiotic as advised for right dog bite wound Follow-up with wound clinic Prescriptions: New cefuroxime axetil 500 mg tablet 500 mg PO BID Qty: 20 0RF doxycycline hyclate 100 mg tablet 100 mg PO BID Qty: 20 0RF No Action naproxen [Naprosyn] 500 mg tablet 500 mg PO BID Qty: 20 0RF naproxen 500 mg tablet 500 mg PO BID PRN (Reason: pain) 10 Days Qty: 20 0RF thiamine HCl (vitamin B1) 50 mg tablet 50 mg PO DAILY Qty: 30 0RF folic acid 1 mg tablet 1 mg PO DAILY Qty: 30 0RF amoxicillin-pot clavulanate 875-125 mg tablet 1 tab PO BID Qty: 20 0RF metformin 500 mg tablet 500 mg PO BID atorvastatin 10 mg tablet 10 mg PO DAILY amlodipine 5 mg tablet 5 mg PO DAILY omeprazole 20 mg capsule,delayed release(DR/EC) 20 mg PO DAILY metoprolol succinate 50 mg tablet extended release 24 hr 50 mg PO DAILY Referrals: [facility] Sandy Mensah MD [Physician] - 2 days
--- NOTE | 2022-09-24 22:38 | MHC.EDTECH ---
pt was given ousmane tyson and ham sandwich for snack .
[2022-09-24] MEDS: Doxycycline Monohydrate 100 MG CAPSULE PO (22:47)
[2022-09-24] MEDS: Amoxicillin/Potassium Clav 875 MG TABLET PO (22:47)
[2022-09-24] MEDS: Bacitracin Oint 0.9 GM PACKET 1 APPL TOPICAL (22:47)
--- NOTE | 2022-09-24 22:53 | MHC.EDTECH ---
PATIENT WOUND ON RIGHT HAND WAS CLEAN WITH SALINE AND PEROXIDE ,BACITRACIN OINMENT APPLY ,NON STICK DRESSING APPLY WITH RUBY WRAP .
[2022-09-25 00:29] LABS: Glucose, Whole Blood 115 mg/dL (60-115)
--- NOTE | 2022-09-25 01:00 | PC.NURSE ---
late entry-this rn assisted pt up to bathroom. pt standby assist. pt repositioned to stretcher and provided with warm blankets
[2022-09-25 02:00] VITALS: BP 125/63; PULSE 82; RESP 16; TEMP 37.2; O2SAT 96
[2022-09-25 04:58] VITALS: RESP 20
--- NOTE | 2022-09-25 04:58 | PC.NURSE ---
pt sleeping on stretcher on back at this time. RR 20 nonlabored. rise and fall of chest noted
[2022-09-25 05:54] VITALS: BP 126/72; PULSE 88; RESP 16; TEMP 37.1; O2SAT 98
--- NOTE | 2022-09-25 07:29 | PC.NURSE ---
pt provided with bus pass and discharge packet at discharge. pt verbalized understanding of discharge plan with no further questions. security at bedside standby assist
== END 2022-09-25 08:22 | disposition home or self-care (01) ==
PROVIDERS: Emergency Provider Internal Medicine
DX: F10.129 Alcohol abuse with intoxication, unspecified (principal); Z48.00 Encounter for change or removal of nonsurgical wound dressing
CPT/HCPCS: 82947; 99283; 99284

== ENCOUNTER 2022-09-29 23:13 | Inpatient (IN) | payer OTHER, SELFPAY ==
--- NOTE | ~2022-09-29 | XR_ITS ---
EXAMINATION: XR HAND, RIGHT CLINICAL INFORMATION: Infected dog bite COMPARISON: 08/07/2022 TECHNIQUE: PA, lateral, and oblique views of the right hand. FINDINGS: No fracture or dislocation. Alignment maintained. Joint spaces are maintained. No osseous erosions. Mild soft tissue swelling over the ulnar aspect of the hand. XR/XR hand RT 2V IMPRESSION: Mild soft tissue swelling. No acute osseous abnormality. No osseous erosion.
[2022-09-29 23:23] VITALS: BP 122/59; BP 156/88; PULSE 87; PULSE 96; RESP 16; TEMP 36.4; O2SAT 95; O2SAT 98; BMI 25.8
--- NOTE | 2022-09-29 23:23 | ED.GENADULT ---
HPI - General Adult General Chief complaint: ETOH/Substance Use <Kel Alejo - Last Filed: 09/30/22 01:52> Stated complaint: ETOH USE,FOUND SLEEPING OUT SIDE S&S PER EMT <Kel Alejo - Last Filed: 09/30/22 01:52> Time Seen by Provider: 09/29/22 23:13 <Kel Alejo - Last Filed: 09/30/22 01:52> Source: patient, EMS, RN notes reviewed and old records reviewed <Kel Alejo - Last Filed: 09/30/22 01:52> Mode of arrival: EMS <Kel Alejo - Last Filed: 09/30/22 01:52> Limitations: other (Acute alcohol intoxication) <Kel Alejo - Last Filed: 09/30/22 01:52> History of Present Illness HPI narrative: 61-year-old male who is well known to this emergency department presents for evaluation of acute alcohol intoxication. Patient was apparently found by police outside of a local stop and shop He had reportedly been drinking alcohol all day He reports to me that he needs to use the bathroom but has no other complaints or concerns He is a limited historian at this time He denies any injuries but has some scrapes to both knees <Kel Alejo - Last Filed: 09/30/22 01:52> Related Data Home medications: Home Medications Medication Instructions Recorded Confirmed amlodipine 5 mg tablet 5 mg PO DAILY 10/21/21 08/25/22 atorvastatin 10 mg tablet 10 mg PO DAILY 10/21/21 08/25/22 metformin 500 mg tablet 500 mg PO BID 10/21/21 08/25/22 metoprolol succinate 50 mg 50 mg PO DAILY 10/21/21 08/25/22 tablet,extended release 24 hr omeprazole 20 mg capsule,delayed 20 mg PO DAILY 10/21/21 08/25/22 release Previous Rx's Medication Instructions Recorded folic acid 1 mg tablet 1 mg PO DAILY #30 tabs 10/21/21 thiamine HCl (vitamin B1) 50 mg 50 mg PO DAILY #30 tabs 10/21/21 tablet naproxen 500 mg tablet (Naprosyn) 500 mg PO BID #20 tabs 08/05/22 naproxen 500 mg tablet 500 mg PO BID PRN pain 10 days #20 08/25/22 tabs amoxicillin 875 mg-potassium 1 tab PO BID #20 tabs 09/17/22 clavulanate 125 mg tablet cefuroxime axetil 500 mg tablet 500 mg PO BID #20 tabs 09/25/22 doxycycline hyclate 100 mg tablet 100 mg PO BID #20 tabs 09/25/22 <Kel GuerreroSushanty - Last Filed: 09/30/22 01:52> Allergies/adverse reactions: Allergies Allergy/AdvReac Type Severity Reaction Status Date / Time bee pollen [BEE STINGS] Allergy Intermediate SWELLING Verified 09/16/22 22:12 polyethylene glycol Allergy Unknown Swelling Verified 09/16/22 22:12 [Golytely] polyethylene glycol 3350 Allergy Unknown Unknown Verified 09/16/22 22:12 [Golytely] potassium chloride [Golytely] Allergy Unknown Unknown Verified 09/16/22 22:12 sodium [Golytely] Allergy Unknown Unknown Verified 09/16/22 22:12 sodium bicarbonate [Golytely] Allergy Unknown Unknown Verified 09/16/22 22:12 sodium chloride [Golytely] Allergy Unknown Unknown Verified 09/16/22 22:12 sodium sulfate [Golytely] Allergy Unknown Unknown Verified 09/16/22 22:12 <Kel GuerreroSushanty - Last Filed: 09/30/22 01:52> Review of Systems Review of Systems: Limited review of systems secondary to patient's cooperation level <Kel LuanGillespie - Last Filed: 09/30/22 01:52> Cardiovascular: Cardiovascular: Denies chest pain and Denies dyspnea <Kel OGillespie - Last Filed: 09/30/22 01:52> Respiratory: Respiratory: Denies cough and Denies dyspnea <Kel Cesar Last Filed: 09/30/22 01:52> [facility] Past Medical History Medical History: Medical History Diabetes GERD (gastroesophageal reflux disease) <Kel O'Lyle - Last Filed: 09/30/22 01:52> Surgical History: Surgical History Hx of pelvic surgery <Kel Tenay - Last Filed: 09/30/22 01:52> Social History Social History: Social History Alcohol intake: current Alcohol intake frequency: 3 or more drinks per day Alcohol type: beer Patient Tobacco Use Status: Never used Tobacco Advance Directives: No Advance Directives Information Provided: Yes Current occupational status: unemployed 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 <Kel Alejo - Last Filed: 09/30/22 01:52> Physical Exam ED Vital Signs: Vital Signs - 24 hr 09/29/22 23:23 09/30/22 06:00 09/30/22 10:43 Temperature 97.5 F 97.5 F 98.9 F Pulse Rate 87 95 90 Respiratory Rate 16 14 Blood Pressure 122/59 L 101/71 126/63 Pulse Oximetry 98 100 97 Oxygen Delivery Method Room Air Room Air Room Air BMI result Body Mass Index 25.8 <Kel Alejo - Last Filed: 09/30/22 01:52> Vital Signs - 24 hr 09/29/22 23:23 09/30/22 06:00 09/30/22 10:43 Temperature 97.5 F 97.5 F 98.9 F Pulse Rate 87 95 90 Respiratory Rate 16 14 Blood Pressure 122/59 L 101/71 126/63 Pulse Oximetry 98 100 97 Oxygen Delivery Method Room Air Room Air Room Air BMI result Body Mass Index 25.8 <REBECCA Mahoney - Last Filed: 09/30/22 14:00> Const General: no acute distress, alert and awake <Kel Alejo - Last Filed: 09/30/22 01:52> Nutritional Appearance: well nourished <Kel Alejo - Last Filed: 09/30/22 01:52> Orientation/consciousness: patient oriented x3 <Kel Alejo - Last Filed: 09/30/22 01:52> HENMT Head: Yes normocephalic and Yes atraumatic (No abrasions, skin tears, hematomas to the head, face or scalp) <Kel Alejo - Last Filed: 09/30/22 01:52> Throat: Yes posterior oropharynx normal <Kel Alejo - Last Filed: 09/30/22 01:52> Eyes Eyelids: Yes eyelids normal < Last Filed: 09/30/22 01:52> Conjunctivae: conjunctivae normal < Last Filed: 09/30/22 01:52> Sclerae: sclerae normal < Last Filed: 09/30/22 01:52> Corneas: corneas normal < Last Filed: 09/30/22 01:52> Pupils: Equal, round and reactive pupils present < Last Filed: 09/30/22 01:52> EOM: EOMs intact bilaterally < Last Filed: 09/30/22 01:52> Neck Neck: Yes full ROM < Last Filed: 09/30/22 01:52> Resp Effort & Inspection: normal respiratory effort, able to speak in complete sentences, no audible wheezes and not labored < Last Filed: 09/30/22 01:52> Auscultation: clear to auscultation bilaterally < Last Filed: 09/30/22 01:52> Cardio Rate: regular rate < Last Filed: 09/30/22 01:52> Rhythm: regular rhythm < Filed: 09/30/22 01:52> GI Inspection: No distended < Last Filed: 09/30/22 01:52> Palpation (GI): Soft to palpation, not firm, nontender, no guarding and not rigid < Last Filed: 09/30/22 01:52> Auscultation: normoactive bowel sounds < Last Filed: 09/30/22 01:52> Skin Other: Mild abrasions and skin tears on both knee. No deep lacerations. < Last Filed: 09/30/22 01:52> General skin exam: no rashes or lesions noted and elasticity normal < Last Filed: 09/30/22 01:52> Neuro General: patient oriented x3 < - Last Filed: 09/30/22 01:52> Cranial nerves: Yes CN's II-XII intact bilaterally, Yes Equal, round and reactive pupils present and Yes Bilaterally intact EOM present <Kel OJavy - Last Filed: 09/30/22 01:52> Extrem Other: Moving all extremities well without any obvious deformities <Kel Alejo - Last Filed: 09/30/22 01:52> Course Reevaluation(s) Reevaluation #1: Patient resting comfortably with stable vital signs. He is not clinically sober for discharge his time. He will require sober re-evaluation and likely discharge. He has previously refused detox on numerous occasions.Patient signed out to overnight staff <Kel Alejo - Last Filed: 09/30/22 01:52> Time: 01:51 <Kel Alejo - Last Filed: 09/30/22 01:52> Reevaluation #2: [id number]--on re-evaluation patient clinically sober, interested in detox. Requesting hand bite wound read wrapped. On evaluation please refer to image below. Patient has been on multiple outpatient antibiotics for this bite wound not happened about 4 weeks ago. Consulted Orthopedics, Dr. Vargas evaluated patient, plan for IR debridement on recommends IV antibiotics & medicine admit. Phenobarb protocol initiated, plan to admit to hospitalist <REBECCA Mahoney - Last Filed: 09/30/22 14:00> Medical Decision Making Medical Decision Making MDM Narrative: 61-year-old male presents clinically intoxicated, he reported to EMS that he had been drinking all day. Patient has some scrapes on his knees bent because of the could be a couple of days old. No obvious trauma to the head or neck area. Patient does have a bandage on his right arm. Previous records indicate he was bitten by dog a few weeks ago. He was seen here on 09/24/2022 and discharged with Ceftin and doxycycline.. Unclear if he has been taking these <Kel Sapna - Last Filed: 09/30/22 01:52> Differential Diagnosis Alcohol abuse Acute alcohol intoxication Polysubstance abuse Depression Skin tear Abrasion <Kel Sapna - Last Filed: 09/30/22 01:52> Lab Data Labs: Lab Results 09/30/22 09/30/22 Range/Units 00:08 00:08 Urine Color Yellow Urine Appearance Clear Urine pH 6.0 (5.0-9.0) Ur Specific [place] <= 1.005 (1.005-1.025) Urine Protein Negative (Neg-Trace) mg/dL Urine Glucose (UA) Negative (Negative) mg/dL Urine Ketones Negative (Negative) mg/dL Urine Blood Negative (Negative) Urine Nitrite Negative (Negative) Ur Leukocyte Esterase Negative (Negative) Urine RBC 0-2 (0-2) /HPF Urine WBC 0-5 (0-5) /HPF Ur Squamous Epith Cells 0-2 (0-2) /HPF Urine Bacteria None Seen (None Seen) Hyaline Casts 0-2 (0-2) /LPF Urine Opiates Screen Not Detected (Not Detect) Urine Fentanyl Screen Not Detected (Not Detect) Ur Barbiturates Screen Not Detected (Not Detect) Ur Phencyclidine Scrn Not Detected (Not Detect) Ur Amphetamines Screen Not Detected (Not Detect) U Benzodiazepines Scrn Not Detected (Not Detect) Urine Cocaine Screen Not Detected (Not Detect) U Marijuana (THC) Screen Not Detected (Not Detect) <Kel Mallikay - Last Filed: 09/30/22 01:52> Lab Results 09/30/22 09/30/22 Range/Units 00:08 00:08 Urine Color Yellow Urine Appearance Clear Urine pH 6.0 (5.0-9.0) Ur Specific [place] <= 1.005 (1.005-1.025) Urine Protein Negative (Neg-Trace) mg/dL Urine Glucose (UA) Negative (Negative) mg/dL Urine Ketones Negative (Negative) mg/dL Urine Blood Negative (Negative) Urine Nitrite Negative (Negative) Ur Leukocyte Esterase Negative (Negative) Urine RBC 0-2 (0-2) /HPF Urine WBC 0-5 (0-5) /HPF Ur Squamous Epith Cells 0-2 (0-2) /HPF Urine Bacteria None Seen (None Seen) Hyaline Casts 0-2 (0-2) /LPF Urine Opiates Screen Not Detected (Not Detect) Urine Fentanyl Screen Not Detected (Not Detect) Ur Barbiturates Screen Not Detected (Not Detect) Ur Phencyclidine Scrn Not Detected (Not Detect) Ur Amphetamines Screen Not Detected (Not Detect) U Benzodiazepines Scrn Not Detected (Not Detect) Urine Cocaine Screen Not Detected (Not Detect) U Marijuana (THC) Screen Not Detected (Not Detect) <REBECCA Mahoney - Last Filed: 09/30/22 14:00> Discharge Plan Discharge Clinical Impression: Deep wound due to dog bite, Alcoholic intoxication <Kel Alejo - Last Filed: 09/30/22 01:52> Patient Disposition: Admitted As Inpatient <Kel Alejo - Last Filed: 09/30/22 01:52>
--- NOTE | 2022-09-29 23:57 | PC.NURSE ---
Pt relocated to the back of the ed due to safety concerns related to his unsteadiness on his feet and his inability to remain in the stretcher per staff advisement. Pt noted to have to void and was unable to complete this task while laying down, myself and edt/po assisted the pt with voiding into the urinal while standing. He was grateful, calm and cooperative and without distress. pt provided with pillow and warm blanket for comfort.
[2022-09-30 00:15] LABS: Appearance Urine Clear; Color Urine Yellow; Glucose Urine UA Negative (Negative); Leukocyte Esterase Urine Negative (Negative); Nitrite Urine Negative (Negative); Specific Gravity - Urine <= 1.005 (1.005-1.025); Urine Blood Negative (Negative); Urine Ketones Negative (Negative); Urine Protein Negative (Neg-Trace)
[2022-09-30 00:27] LABS: Amphetamine Screen Urine Not Detected (Not Detect); Barbiturates, Urine Not Detected (Not Detect); Benzodiazepines Screen Urine Not Detected (Not Detect); Cannabinoid Screen Urine Not Detected (Not Detect); Cocaine Screen Urine Not Detected (Not Detect); Fentanyl, urine Not Detected (Not Detect); Opiate Screen Urine Not Detected (Not Detect); Phencyclidine Screen Urine Not Detected (Not Detect)
[2022-09-30 00:30] LABS: Bacteria Urine None Seen (None Seen); Hyaline Casts Urine 0-2 /LPF (0-2); RBC Urine 0-2 /HPF (0-2); Squamous Epithelial Cell Urine 0-2 /HPF (0-2); WBC Urine 0-5 /HPF (0-5)
--- NOTE | 2022-09-30 02:02 | PC.NURSE ---
pt is resting comfortably in stretcher with eyes closed, respirations even and unlabored without distress noted. pt remains in clear view/sight for safety as he was previously noted to be unsteady on his feet
[2022-09-30 06:00] VITALS: BP 101/71; PULSE 95; RESP 14; TEMP 36.4; O2SAT 100
--- NOTE | 2022-09-30 07:50 | PC.NURSE ---
resumed care of patient this morning, he is a/ox4. Aware of were he is, only concern at this time is to get his wrist rewrapped which he reports is from getting bit by a dog. He has gotten up to ambulate to BR and is steady on his feet. awaiting dispo at this time
--- NOTE | 2022-09-30 10:03 | MHC.RECOVRN ---
This proposal manager writer met w/ patient, patient was alert, laying in bed. Patient reports has been depressed since dog bite. Patient reports no SI/HI. Patient states has been drinking, every other day ETOH, approximately 6 beers. Patient familiar to this proposal manager writer, patient has hx of detox treatment. Patient chronically unstably housed. Patient requesting detox, patient reports willing to do anywhere for detox. Addiction/Recovery to start ATS bedsearch.
[2022-09-30 10:43] VITALS: BP 126/63; PULSE 90; TEMP 37.2; O2SAT 97
--- NOTE | 2022-09-30 14:10 | MHC.RECOVSUP ---
Pt accepted to [facility], however he is now being admitted here do to the state of his dog bite.
[2022-09-30 14:27] LABS: MANUAL DIFF FLAG NO
[2022-09-30 14:28] VITALS: BP 162/81; PULSE 90; RESP 16; TEMP 36.6; O2SAT 98
[2022-09-30 14:29] LABS: Eosinophils Absolute Auto 0.1 X10*3/uL (0.0-0.4); Eosinophils Percent Auto 2.9 % (0-4); Hematocrit 41.5 % (42.0-52.0); Hemoglobin 13.8 g/dl (14.0-18.0); Lymphocytes Absolute Auto 1.1 X10*3/uL (1.2-4.9); Lymphocytes Percent Auto 25.4 % (20-40); Mean Corpuscular HGB Conc 33.3 g/dl (31.0-36.0); Mean Corpuscular Hemoglobin 33.1 pg (27.0-33.0); Mean Corpuscular Volume 99.5 fL (80.0-98.0); Mean Platelet Volume 9.1 fL (9.4-12.4); Monocytes Absolute Auto 0.2 X10*3/uL (0.1-1.2); Monocytes Percent Auto 4.5 % (2-11); Neutrophils Absolute Auto 2.8 x10*3/uL (2.0-8.3); Neutrophils Percent Auto 66.2 % (45-73); Platelet Count 162 X10*3/uL (160-400); Red Blood Count 4.17 X10*6/uL (4.60-5.80); Red Cell Distribution Width 13.4 % (11.0-16.0); White Blood Count 4.2 X10*3/uL (4.8-10.8)
--- NOTE | 2022-09-30 14:30 | PHA.MEDREC ---
Pharmacy Consult ? Medication Reconciliation Pharmacy has completed the medication reconciliation. Pt mercedes historian, told me to call his pharmacy. Said he is on a bunch of meds but seems to be nonadherent. Did med rec based on claim history
[2022-09-30 14:42] LABS: Lactic Acid 1.1 mmol/L (0.5-2.0)
[2022-09-30 14:46] LABS: Anion Gap 14 (12-20); Blood Urea Nitrogen 6 mg/dL (9-16); C Reactive Protein 0.11 mg/dL (< or = 0.50); Calcium 8.7 mg/dL (8.4-10.2); Carbon Dioxide 25 mmol/L (22-29); Chloride 108 mmol/L (96-108); Creatinine Clr Calc Pharmacy 144.8; Estimated Glomerular Filt Rate > 60; Glucose Random 96 mg/dL (60-115); Sodium 143 mmol/L (135-145)
[2022-09-30] MEDS: PHENobarbitaL sodium 130 MG/ML IM ONCE 290 MG IM (14:55)
--- NOTE | 2022-09-30 15:02 | PM.IMHP ---
History of Present Illness Date of Service: 09/30/22 Attending physician on admission: Juliocesar Arango Chief Complaint: infected dog bite, intoxication 61-year-old male with history of dks-bhdenms-erqnorjtl type 2 diabetes, hypertension, hyperlipidemia, and alcohol abuse presented to the ED early this morning after being found intoxicated asleep outside of a grocery store by EMS. The patient states that he drinks about 6 beers most days and denies any history of alcohol withdrawal or alcohol withdrawal seizure. He has been seen multiple times in our ED for alcohol intoxication and has never desire detox. He also has a dog bite to the medial aspect of the right hand. He was bit by an unvaccinated dog about 2 months ago and has been on augmentin and then ceftin and doxycycline but the wound has not healed. Reports only serous drainage, no purulent drainage. Reports constant 7-8/10 pain. No fevers, chills. He did receive one postexposure rabies prophylaxis at [facility] on 09/16, but did not return for follow up as scheduled on 09/19, 09/26. His only other complaint is nasal congestion, but denies any other URI symptoms. No known sick contacts. On arrival VSS, no leukocytosis. Renal function and electrolytes normal. ESR 9, CRP 0.11. UA unremarkable. Urine tox screen negative. ED discussed case with hand surgery who is recommending admission to medicine for IV abx and surgical debridement . Review of Systems Review of Systems: General: No fevers, malaise, unintentional weight loss HEENT: +nasal congestion. No visual changes. No sore throat, rhinorrhea, sinus pain, ear pain Cardiovascular: No chest pain, palpitations, or leg edema Respiratory: No shortness of breath, wheezing, cough GI: No abdominal pain, nausea, vomiting, diarrhea, constipation, melena, hematochezia : No dysuria, hematuria, increased urinary frequency, decreased urinary output MSK: No myalgia, back pain Neuro: No headaches, weakness, paresthesias Skin: No rashes or lesions [facility] Medical History (Updated 09/30/22 @ 15:19 by REBECCA Rodriguez) Alcohol use disorder Diabetes GERD (gastroesophageal reflux disease) HTN (hypertension) Surgical History Hx of pelvic surgery Social History Alcohol intake: current Alcohol intake frequency: 3 or more drinks per day Alcohol type: beer Patient Tobacco Use Status: Never used Tobacco Current occupational status: unemployed 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 Meds Allergies Allergy/AdvReac Type Severity Reaction Status Date / Time bee pollen [BEE STINGS] Allergy Intermediate SWELLING Verified 09/16/22 22:12 polyethylene glycol Allergy Unknown Swelling Verified 09/16/22 22:12 [Golytely] polyethylene glycol 3350 Allergy Unknown Unknown Verified 09/16/22 22:12 [Golytely] potassium chloride [Golytely] Allergy Unknown Unknown Verified 09/16/22 22:12 sodium [Golytely] Allergy Unknown Unknown Verified 09/16/22 22:12 sodium bicarbonate [Golytely] Allergy Unknown Unknown Verified 09/16/22 22:12 sodium chloride [Golytely] Allergy Unknown Unknown Verified 09/16/22 22:12 sodium sulfate [Golytely] Allergy Unknown Unknown Verified 09/16/22 22:12 Active Medications: Current Medications Acetaminophen (Acetaminophen 325 Mg Tablet) 650 mg PO Q6H PRN PRN Reason: Pain, Mild (Pain Scale 1-3) Docusate Sodium (Docusate Sodium 100 Mg Capsule) 100 mg PO DAILY PRN PRN Reason: Constipation Glucose (Glucose Gel 15 Gm Gel..Gram.) 15 gm PO Q15M PRN; Protocol PRN Reason: per Hypoglycemia Standing Ord. Heparin Sodium (Porcine) (Heparin Sodium,Porcine 5,000 Unit/Ml Vial) 5,000 unit SUBCUT Q12H [facility] Piperacillin Sod/Tazobactam (Sod 3.375 gm/ Sodium Chloride) 50 mls @ 100 mls/hr IV Q6H [facility] Dextrose (D10) 250 mls @ 750 mls/hr IV Q15M PRN; Protocol PRN Reason: per Hypoglycemia Standing Ord. Insulin Human Lispro (Insulin Lispro 100 Unit/Ml 3 Ml Vial) 0 unit SUBCUT QIDACHS [facility]; Protocol Ondansetron HCl (Ondansetron Hcl 4 Mg/2 Ml Vial) 4 mg IVPUSH Q8H PRN PRN Reason: Nausea and Vomiting Pharmacy Consult (Consult Rx Etoh Phenob Im/Po) 1 each MISCELLANE ONCE PRN; Protocol PRN Reason: Consult order Phenobarbital (Phenobarbital 15 Mg Tablet) 45 mg PO BID [facility]; Protocol Stop: 10/02/22 21:01 Phenobarbital (Phenobarbital 15 Mg Tablet) 15 mg PO BID [facility]; Protocol Stop: 10/04/22 21:01 Phenobarbital (Phenobarbital 15 Mg Tablet) 15 mg PO DAILY [facility]; Protocol Stop: 10/06/22 09:01 Phenobarbital Sodium (Phenobarbital Sodium 130 Mg/Ml Vial Im Q3hx2) 220 mg IM Q3H [facility]; Protocol Stop: 09/30/22 20:01 Sodium Chloride (0.9 % Sodium Chloride Flush 3 Ml Syringe) 3 ml IVFLUSH QSHIFT [facility] Home Medications Medication Instructions Recorded Confirmed Last Taken Type amlodipine 5 mg tablet 5 mg PO DAILY 09/30/22 09/30/22 Unknown History atorvastatin 10 mg tablet 10 mg PO DAILY 09/30/22 09/30/22 Unknown History metformin 500 mg tablet 500 mg PO BID 09/30/22 09/30/22 Unknown History metoprolol succinate 50 mg 50 mg PO DAILY 09/30/22 09/30/22 Unknown History tablet,extended release 24 hr omeprazole 20 mg capsule,delayed 20 mg PO DAILY@0630 09/30/22 09/30/22 Unknown History release Physical Exam Vital Signs and Narrative: Vital Signs: Last Vital Signs Temp 97.8 F 09/30/22 14:28 Pulse 90 09/30/22 14:28 Resp 16 09/30/22 14:28 BP 162/81 H 09/30/22 14:28 Pulse Ox 98 09/30/22 14:28 O2 Del Method Room Air 09/30/22 14:28 BMI result Body Mass Index 25.8 Constitutional - Awake and Alert, No apparent distress Eyes - PERRLA, EOMI Cardiovascular - S1S2, RRR, No edema Respiratory - Normal lung expansion, Normal respiratory effort, No respiratory distress, CTA bilaterally Gastrointestinal - NT / ND; +BS; No rebound or guarding Extremities - no calf tenderness bilaterally, no swelling Musculoskeletal - Normal inspection, normal ROM of hand and fingers Skin - Warm/Dry. Deep wound to the medial aspect of the right hand wrapping to the dorsum with minimal surrounding erythema covered in slough Neurological - Alert & oriented x3, CN II-XII in tact, 5/5 strength BUE and BLE , sensation in tact Psychological - Appropriate affect Results Labs 09/30/22 14:21 09/30/22 14:21 Labs: Laboratory Results - last 24 hr 09/30/22 09/30/22 09/30/22 00:08 00:08 14:21 MCV 99.5 H MCH 33.1 H MCHC 33.3 RDW 13.4 Plt Count 162 D MPV 9.1 L Immature Gran % (Auto) 0.0 Neut % (Auto) 66.2 Lymph % (Auto) 25.4 [place] % (Auto) 4.5 Eos % (Auto) 2.9 Baso % (Auto) 1.0 Lymph # (Auto) 1.1 L [place] # (Auto) 0.2 Eos # (Auto) 0.1 Baso # (Auto) 0.0 Abs Immat Gran (auto) 0.00 Absolute Neuts (auto) 2.8 Absolute Nucleated RBC 0.000 Nucleated RBC % (auto) 0.0 Anion Gap Estim Creat Clear Calc Estimated GFR Random Glucose Lactic Acid Calcium C-Reactive Protein Urine Color Yellow Urine Appearance Clear Urine pH 6.0 Ur Specific [place] <= 1.005 Urine Protein Negative Urine Glucose (UA) Negative Urine Ketones Negative Urine Blood Negative Urine Nitrite Negative Ur Leukocyte Esterase Negative Urine RBC 0-2 Urine WBC 0-5 Ur Squamous Epith Cells 0-2 Urine Bacteria None Seen Hyaline Casts 0-2 Urine Opiates Screen Not Detected Urine Fentanyl Screen Not Detected Ur Barbiturates Screen Not Detected Ur Phencyclidine Scrn Not Detected Ur Amphetamines Screen Not Detected U Benzodiazepines Scrn Not Detected Urine Cocaine Screen Not Detected U Marijuana (THC) Screen Not Detected 09/30/22 09/30/22 14:21 14:21 MCV MCH MCHC RDW Plt Count MPV Immature Gran % (Auto) Neut % (Auto) Lymph % (Auto) [place] % (Auto) Eos % (Auto) Baso % (Auto) Lymph # (Auto) [place] # (Auto) Eos # (Auto) Baso # (Auto) Abs Immat Gran (auto) Absolute Neuts (auto) Absolute Nucleated RBC Nucleated RBC % (auto) Anion Gap 14 Estim Creat Clear Calc 144.8 Estimated GFR > 60 Random Glucose 96 Lactic Acid 1.1 Calcium 8.7 C-Reactive Protein 0.11 Urine Color Urine Appearance Urine pH Ur Specific [place] Urine Protein Urine Glucose (UA) Urine Ketones Urine Blood Urine Nitrite Ur Leukocyte Esterase Urine RBC Urine WBC Ur Squamous Epith Cells Urine Bacteria Hyaline Casts Urine Opiates Screen Urine Fentanyl Screen Ur Barbiturates Screen Ur Phencyclidine Scrn Ur Amphetamines Screen U Benzodiazepines Scrn Urine Cocaine Screen U Marijuana (THC) Screen Assessment and Plan (1) Deep wound due to dog bite: Status: Acute (2) Alcohol use disorder: Status: Acute Plan 61-year-old male with history of [id number] type 2 diabetes, hypertension, hyperlipidemia, and alcohol abuse presented to the ED admitted for infected dog bite and management of alcohol withdrawal. #Infected dog bite with cellulitis right hand -No leukocytosis. ESR/CRP WNL. afebrile -Bit by unvaccinated dog about 2 months ago -Failed outpt abx with augmentin then ceftin and doxycycline -Initiate zosyn 3.375g q6h (started 09/30) -Appreciate hand surgery input. Plan for debridement 10/02 -Xray pending #Alcohol use disorder with acute intoxication -Acutely intoxicated on arrival, at risk for severe withdrawal -Monitor on CIWA -Phenobarb per protocol -Does not desire detox #Noninsulin dependent type 2 diabetes -Humalog on sliding scale -POC glucose -Diabetic diet -hold metformin #HTN -continue home meds #HLD -continue statin #GERD -continue ppi DVT prophylaxis- heparin Full code Pt requires inpt stay at least 2 midnights for management of infected dog bite having failed outpt abx and management of acute alcohol withdrawal Time Spent With Patient Time: Total time managing care of this patient today ____ minutes. Quality Stroke Does the patient have a stroke diagnosis?: No VTE Prior VTE?: No VTE Risk Level:: Medical - moderate - high VTE Device Contraindication: Treatment Not Indicated VTE Drug Contraindication: N/A - Med Ordered
[2022-09-30 15:07] LABS: Erythrocyte Sedimentation Rate 9 MM/HR (0-15)
[2022-09-30] MEDS: Heparin Sodium,Porcine 5,000 UNIT/ML VIAL 5000 UNIT SUBCUT (15:31)
[2022-09-30] MEDS: amLODIPine Besylate 5 MG TABLET PO (15:31)
[2022-09-30 16:17] LABS: Vitamin B12 279 pg/mL (200-900)
[2022-09-30 16:21] LABS: Influenza A PCR NEGATIVE (Negative); Influenza B PCR NEGATIVE (Negative); Resp Syncy Virus RNA Qual PCR NEGATIVE (Negative); SARS COV2 PCR INHOUSE NEGATIVE (Negative)
--- NOTE | 2022-09-30 16:46 | PC.NURSE ---
Report given to M3 RN, pt to be brought up by transport
[2022-09-30 17:24] LABS: Glucose, Whole Blood 81 mg/dL (60-115)
[2022-09-30] MEDS: PHENobarbitaL sodium 130 MG/ML VIAL IM Q3Hx2 220 MG IM ×2 (18:07→19:39)
[2022-09-30] MEDS: 0.9 % Sodium Chloride Flush 3 ML SYRINGE IVFLUSH ×2 (18:09→19:54)
--- NOTE | 2022-09-30 19:11 | PM.CNOR ---
History of Present Illness HPI Consult date: 09/30/22 Chief complaint: infected dog bite Narrative: The patient is a 61-year-old man who we were called to see in the emergency department. He was bitten by a dog in the right hand perhaps 3 or 4 weeks ago. It sounds like he had some sutures placed at an outside facility. He is seen rather frequently in our emergency department, but was 1st seen with this injury noted I believe on September 16. At that time he was placed on some antibiotics and his sutures were removed. We were asked to see him for a fairly large and deep wound involving the dorsal radial aspect of the hand and the 1st web space. It sounds like he is sometimes homeless, and has some significant problems with alcoholism. When I asked him how much he drinks every day he initially denied drinking every day but then said perhaps a 6 pack. 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 Meds Allergies Allergy/AdvReac Type Severity Reaction Status Date / Time bee pollen [BEE STINGS] Allergy Intermediate SWELLING Verified 09/16/22 22:12 polyethylene glycol Allergy Unknown Swelling Verified 09/16/22 22:12 [Golytely] polyethylene glycol 3350 Allergy Unknown Unknown Verified 09/16/22 22:12 [Golytely] potassium chloride [Golytely] Allergy Unknown Unknown Verified 09/16/22 22:12 sodium [Golytely] Allergy Unknown Unknown Verified 09/16/22 22:12 sodium bicarbonate [Golytely] Allergy Unknown Unknown Verified 09/16/22 22:12 sodium chloride [Golytely] Allergy Unknown Unknown Verified 09/16/22 22:12 sodium sulfate [Golytely] Allergy Unknown Unknown Verified 09/16/22 22:12 Active Medications: Current Medications Acetaminophen (Acetaminophen 325 Mg Tablet) 650 mg PO Q6H PRN PRN Reason: Pain, Mild (Pain Scale 1-3) Amlodipine Besylate (Amlodipine Besylate 5 Mg Tablet) 5 mg PO DAILY [facility]; Protocol Last Admin: 09/30/22 15:31 Dose: 5 mg Atorvastatin Calcium (Atorvastatin Calcium 10 Mg Tablet) 10 mg PO DAILY [facility] Docusate Sodium (Docusate Sodium 100 Mg Capsule) 100 mg PO DAILY PRN PRN Reason: Constipation Glucose (Glucose Gel 15 Gm Gel..Gram.) 15 gm PO Q15M PRN; Protocol PRN Reason: per Hypoglycemia Standing Ord. Heparin Sodium (Porcine) (Heparin Sodium,Porcine 5,000 Unit/Ml Vial) 5,000 unit SUBCUT Q12H [facility] Last Admin: 09/30/22 15:31 Dose: 5,000 unit Piperacillin Sod/Tazobactam (Sod 3.375 gm/ Sodium Chloride) 50 mls @ 100 mls/hr IV Q6H [facility] Dextrose (D10) 250 mls @ 750 mls/hr IV Q15M PRN; Protocol PRN Reason: per Hypoglycemia Standing Ord. Cefazolin Sodium/Dextrose (Ancef) 2 gm in 50 mls @ 100 mls/hr IV PREOP ONE Stop: 10/02/22 16:12 Insulin Human Lispro (Insulin Lispro 100 Unit/Ml 3 Ml Vial) 0 unit SUBCUT QIDACHS [facility]; Protocol Last Admin: 09/30/22 17:56 Dose: Not Given Metoprolol Succinate (Metoprolol Succinate Er 50 Mg Tab.Er.24h) 50 mg PO DAILY [facility]; Protocol Naproxen (Naproxen 500 Mg Tablet) 500 mg PO BID PRN PRN Reason: Pain, Mild (Pain Scale 1-3) Omeprazole (Omeprazole 20 Mg Capsule.Dr) 20 mg PO DAILY@0630 [facility] Ondansetron HCl (Ondansetron Hcl 4 Mg/2 Ml Vial) 4 mg IVPUSH Q8H PRN PRN Reason: Nausea and Vomiting Pharmacy Consult (Consult Rx Etoh Phenob Im/Po) 1 each MISCELLANE ONCE PRN; Protocol PRN Reason: Consult order Phenobarbital (Phenobarbital 15 Mg Tablet) 45 mg PO BID [facility]; Protocol Stop: 10/02/22 21:01 Phenobarbital (Phenobarbital 15 Mg Tablet) 15 mg PO BID [facility]; Protocol Stop: 10/04/22 21:01 Phenobarbital (Phenobarbital 15 Mg Tablet) 15 mg PO DAILY [facility]; Protocol Stop: 10/06/22 09:01 Phenobarbital Sodium (Phenobarbital Sodium 130 Mg/Ml Vial Im Q3hx2) 220 mg IM Q3H [facility]; Protocol Stop: 09/30/22 20:01 Last Admin: 09/30/22 18:07 Dose: 220 mg Sodium Chloride (0.9 % Sodium Chloride Flush 3 Ml Syringe) 3 ml IVFLUSH QSHIFT [facility] Last Admin: 09/30/22 18:09 Dose: 3 ml Home Medications Medication Instructions Recorded Confirmed Last Taken Type amlodipine 5 mg tablet 5 mg PO DAILY 09/30/22 09/30/22 Unknown History atorvastatin 10 mg tablet 10 mg PO DAILY 09/30/22 09/30/22 Unknown History metformin 500 mg tablet 500 mg PO BID 09/30/22 09/30/22 Unknown History metoprolol succinate 50 mg 50 mg PO DAILY 09/30/22 09/30/22 Unknown History tablet,extended release 24 hr omeprazole 20 mg capsule,delayed 20 mg PO DAILY@0630 09/30/22 09/30/22 Unknown History release Physical Exam Vital Signs: Vital Signs: Last Vital Signs Temp 97.8 F 09/30/22 14:28 Pulse 90 09/30/22 14:28 Resp 16 09/30/22 14:28 BP 162/81 H 09/30/22 14:28 Pulse Ox 98 09/30/22 14:28 O2 Del Method Room Air 09/30/22 14:28 BMI result Body Mass Index 25.8 Const: General: cooperative and no acute distress Orientation/consciousness: oriented to person and oriented to place HEENT: Head: Yes normocephalic and Yes atraumatic Eyes: EOM: EOMs intact bilaterally Resp: Effort & Inspection: normal respiratory effort and able to speak in complete sentences Cardio: Jugular venous distension: no JVD Skin: General skin exam: turgor normal Rashes: no rashes Neuro: General: oriented to person and oriented to place Extrem: Other: Evaluation of right Upper Extremity: Neuro: Sensation grossly intact to the fingertips. Vascular: Cap refill brisk. ROM: Can bring fingers closed to a fist and back out to full or nearly full extension. Smooth and painless right wrist ROM Has a large and deep wound involving the dorsal radial aspect of the right hand extending into the 1st web space. There was a fairly large amount of skin that appears to be necrotic and acting as an eschar.? There does appear to be some pink granulation tissue around it and beneath its edges, however when I push on the eschar I can see some purulence within the wound. Radiographs: Three views of his right hand were reviewed by me today. They do not appear to show any fractures or dislocations though he does have a SI deformity of the wrist. No foreign bodies or evidence of osteomyelitis near the wound. Psych: Appearance: grossly normal Affect: normal affect Attitude: cooperative Results Labs 09/30/22 14:21 09/30/22 14:21 Labs: Abnormal lab results 09/30/22 09/30/22 Range/Units 14:21 14:21 WBC 4.2 L (4.8-10.8) X10*3/uL RBC 4.17 L (4.60-5.80) X10*6/uL Hgb 13.8 L (14.0-18.0) g/dl Hct 41.5 L (42.0-52.0) % MCV 99.5 H (80.0-98.0) fL MCH 33.1 H (27.0-33.0) pg MPV 9.1 L (9.4-12.4) fL Lymph # (Auto) 1.1 L (1.2-4.9) X10*3/uL BUN 6 L (9-16) mg/dL H & H 09/30/22 Range/Units 14:21 Hgb 13.8 L (14.0-18.0) g/dl Hct 41.5 L (42.0-52.0) % All other labs normal. Assessment and Plan (1) Infection of right hand due to bite: Status: Acute Plan Assessment and plan: 1. Right hand infection and questionable skin coverage This is a chronic wound following a dog bite about a month ago. I educated the patient about this condition. He is going to be admitted to Medicine for IV antibiotics. We will plan on taking him to the operating room on morning for an I and D Again he has problems with alcoholism and homelessness. Time Spent With Patient Time: Total time managing care of this patient today _30___ minutes. Procedures Date of Service Date of Service: 09/30/22
[2022-09-30 20:00] VITALS: BP 147/70; PULSE 100; RESP 16; TEMP 36.7; O2SAT 98
[2022-09-30] MEDS: Piperacillin Sodium/Tazobactam 3.375 GM in 0.9 % Sodium Chloride 50 ML IV (20:01)
[2022-09-30 20:38] LABS: Glucose, Whole Blood 211 mg/dL (60-115)
[2022-09-30] MEDS: Insulin Lispro 100 UNIT/ML 3 ML VIAL SUBCUT (21:07)
[2022-10-01] MEDS: Piperacillin Sodium/Tazobactam 3.375 GM in 0.9 % Sodium Chloride 50 ML IV ×4 (02:48→21:12)
[2022-10-01] MEDS: Heparin Sodium,Porcine 5,000 UNIT/ML VIAL 5000 UNIT SUBCUT ×2 (02:48→15:45)
[2022-10-01 03:24] VITALS: BP 130/71; PULSE 87; RESP 16; TEMP 36.4; O2SAT 96
[2022-10-01] MEDS: Omeprazole 20 MG CAPSULE.DR PO (05:57)
[2022-10-01 06:17] LABS: MANUAL DIFF FLAG NO
[2022-10-01 06:29] LABS: Basophils Percent Auto 0.8 % (0-2); Eosinophils Absolute Auto 0.2 X10*3/uL (0.0-0.4); Eosinophils Percent Auto 4.2 % (0-4); Hemoglobin 12.8 g/dl (14.0-18.0); Imm Gran Abs Auto 0.02 X10*3/uL (0.00-0.03); Imm Gran Pct Auto 0.4 % (0.0-0.4); Lymphocytes Absolute Auto 1.1 X10*3/uL (1.2-4.9); Lymphocytes Percent Auto 20.3 % (20-40); Mean Corpuscular HGB Conc 32.8 g/dl (31.0-36.0); Mean Corpuscular Hemoglobin 32.9 pg (27.0-33.0); Mean Corpuscular Volume 100.3 fL (80.0-98.0); Mean Platelet Volume 9.9 fL (9.4-12.4); Monocytes Absolute Auto 0.3 X10*3/uL (0.1-1.2); Monocytes Percent Auto 5.9 % (2-11); Neutrophils Absolute Auto 3.6 x10*3/uL (2.0-8.3); Neutrophils Percent Auto 68.4 % (45-73); Platelet Count 155 X10*3/uL (160-400); Red Blood Count 3.89 X10*6/uL (4.60-5.80); Red Cell Distribution Width 13.3 % (11.0-16.0); White Blood Count 5.2 X10*3/uL (4.8-10.8)
[2022-10-01 06:49] LABS: Anion Gap 12 (12-20); Blood Urea Nitrogen 10 mg/dL (9-16); Calcium 8.6 mg/dL (8.4-10.2); Carbon Dioxide 27 mmol/L (22-29); Chloride 106 mmol/L (96-108); Creatinine Clr Calc Pharmacy 135.1; Estimated Glomerular Filt Rate > 60; Glucose Random 98 mg/dL (60-115); Sodium 141 mmol/L (135-145)
[2022-10-01 07:25] VITALS: BP 146/76; PULSE 80; RESP 20; TEMP 36.4; O2SAT 98
[2022-10-01 07:29] LABS: Glucose, Whole Blood 108 mg/dL (60-115)
--- NOTE | 2022-10-01 08:49 | MHC.CM.PN ---
PATIENT IS INDEPDENT WITH AMBULATION. NO DME OR VNA SERVICES HE REPORTS THAT DR GILL IS HIS PCP PATIENT IS WILLING TO COMPLETE A HCP, NAMING SIGNIFICANT OTHER, JOSE ([phone]) [employer]. CM FOLLOWING FOR DC PLANS
[2022-10-01] MEDS: PHENobarbitaL 15 MG TABLET 45 MG PO ×2 (09:26→21:10)
[2022-10-01] MEDS: Folic Acid 1 MG TABLET PO (09:26)
[2022-10-01] MEDS: Metoprolol Succinate ER 50 MG TAB.ER.24H PO (09:26)
[2022-10-01] MEDS: Atorvastatin Calcium 10 MG TABLET PO (09:27)
[2022-10-01] MEDS: amLODIPine Besylate 5 MG TABLET PO (09:27)
[2022-10-01] MEDS: 0.9 % Sodium Chloride Flush 3 ML SYRINGE IVFLUSH ×2 (09:27→15:45)
[2022-10-01] MEDS: Thiamine HCL 100 MG in 0.9 % Sodium Chloride 100 ML 202 MG IV (10:26)
[2022-10-01 11:06] LABS: Glucose, Whole Blood 184 mg/dL (60-115)
[2022-10-01] MEDS: Insulin Lispro 100 UNIT/ML 3 ML VIAL SUBCUT ×2 (12:14→17:10)
[2022-10-01 15:31] VITALS: BP 133/65; PULSE 84; RESP 20; TEMP 37.2; O2SAT 98
--- NOTE | 2022-10-01 15:51 | P.PNIM_ITS ---
Subjective Subjective Date of Service: 10/01/22 Interval History: seen in follow-up for infected dog bite interval history: No changes, pain manage Review of Systems Review of Systems: Yes all other systems are reviewed and are negative Physical Exam Vital Signs: Vital Signs: Last Vital Signs Temp 98.9 F 10/01/22 15:31 Pulse 84 10/01/22 15:31 Resp 20 10/01/22 15:31 BP 133/65 10/01/22 15:31 Pulse Ox 98 10/01/22 15:31 O2 Del Method Room Air 10/01/22 15:31 BMI result Body Mass Index 25.8 Constitutional - Awake and Alert, No apparent distress Eyes - PERRLA, EOMI Cardiovascular - S1S2, RRR, No edema Respiratory - Normal lung expansion, Normal respiratory effort, No respiratory distress, CTA bilaterally Gastrointestinal - NT / ND; +BS; No rebound or guarding Extremities - no calf tenderness bilaterally, no swelling. Right hand bandaged Skin - Warm/Dry Neurological - Alert & oriented x3 Psychological - Appropriate affect Objective Data Active Medications Acetaminophen (Acetaminophen 325 Mg Tablet) 650 mg PO Q6H PRN PRN Reason: Pain, Mild (Pain Scale 1-3) Amlodipine Besylate (Amlodipine Besylate 5 Mg Tablet) 5 mg PO DAILY [facility]; Protocol Last Admin: 10/01/22 09:27 Dose: 5 mg Documented By: FRANCISCA Atorvastatin Calcium (Atorvastatin Calcium 10 Mg Tablet) 10 mg PO DAILY [facility] Last Admin: 10/01/22 09:27 Dose: 10 mg Documented By: FRANCISCA Docusate Sodium (Docusate Sodium 100 Mg Capsule) 100 mg PO DAILY PRN PRN Reason: Constipation Folic Acid (Folic Acid 1 Mg Tablet) 1 mg PO DAILY [facility] Last Admin: 10/01/22 09:26 Dose: 1 mg Documented By: FRANCISCA Glucose (Glucose Gel 15 Gm Gel..Gram.) 15 gm PO Q15M PRN; Protocol PRN Reason: per Hypoglycemia Standing Ord. Heparin Sodium (Porcine) (Heparin Sodium,Porcine 5,000 Unit/Ml Vial) 5,000 unit SUBCUT Q12H [facility] Last Admin: 10/01/22 15:45 Dose: 5,000 unit Documented By: FRANCISCA Piperacillin Sod/Tazobactam (Sod 3.375 gm/ Sodium Chloride) 50 mls @ 100 mls/hr IV Q6H [facility] Last Admin: 10/01/22 15:42 Dose: 10 mls/hr Documented By: FRANCISCA Dextrose (D10) 250 mls @ 750 mls/hr IV Q15M PRN; Protocol PRN Reason: per Hypoglycemia Standing Ord. Cefazolin Sodium/Dextrose (Ancef) 2 gm in 50 mls @ 100 mls/hr IV PREOP ONE Stop: 10/02/22 16:12 Thiamine HCl 100 mg/ Sodium (Chloride) 101 mls @ 202 mls/hr IV DAILY [facility] Stop: 10/03/22 09:29 Last Infusion: 10/01/22 11:04 Dose: 0 mls/hr Documented By: FRANCISCA Insulin Human Lispro (Insulin Lispro 100 Unit/Ml 3 Ml Vial) 0 unit SUBCUT QIDACHS [facility]; Protocol Last Admin: 10/01/22 12:14 Dose: 2 unit Documented By: FRANCISCA Metoprolol Succinate (Metoprolol Succinate Er 50 Mg Tab.Er.24h) 50 mg PO DAILY [facility]; Protocol Last Admin: 10/01/22 09:26 Dose: 50 mg Documented By: FRANCISCA Naproxen (Naproxen 500 Mg Tablet) 500 mg PO BID PRN PRN Reason: Pain, Mild (Pain Scale 1-3) Omeprazole (Omeprazole 20 Mg Capsule.Dr) 20 mg PO DAILY@0630 [facility] Last Admin: 10/01/22 05:57 Dose: 20 mg Documented By: CHITO Ondansetron HCl (Ondansetron Hcl 4 Mg/2 Ml Vial) 4 mg IVPUSH Q8H PRN PRN Reason: Nausea and Vomiting Pharmacy Consult (Consult Rx Etoh Phenob Im/Po) 1 each MISCELLANE ONCE PRN; Protocol PRN Reason: Consult order Phenobarbital (Phenobarbital 15 Mg Tablet) 45 mg PO BID [facility]; Protocol Stop: 10/02/22 21:01 Last Admin: 10/01/22 09:26 Dose: 45 mg Documented By: FRANCISCA Phenobarbital (Phenobarbital 15 Mg Tablet) 15 mg PO BID [facility]; Protocol Stop: 10/04/22 21:01 Phenobarbital (Phenobarbital 15 Mg Tablet) 15 mg PO DAILY [facility]; Protocol Stop: 10/06/22 09:01 Sodium Chloride (0.9 % Sodium Chloride Flush 3 Ml Syringe) 3 ml IVFLUSH QSHIFT [facility] Last Admin: 10/01/22 15:45 Dose: 3 ml Documented By: FRANCISCA Labs 10/01/22 05:48 10/01/22 05:48 Labs: Laboratory Results - last 24 hr 09/30/22 09/30/22 09/30/22 14:21 15:39 17:19 MCV MCH MCHC RDW Plt Count MPV Immature Gran % (Auto) Neut % (Auto) Lymph % (Auto) [place] % (Auto) Eos % (Auto) Baso % (Auto) Lymph # (Auto) [place] # (Auto) Eos # (Auto) Baso # (Auto) Abs Immat Gran (auto) Absolute Neuts (auto) Absolute Nucleated RBC Nucleated RBC % (auto) Anion Gap Estim Creat Clear Calc Estimated GFR POC Glucose 81 Random Glucose Calcium Vitamin B12 279 Folate 11.0 Influenza Type A (PCR) NEGATIVE Influenza Type B (PCR) NEGATIVE RSV RNA Qual (PCR) NEGATIVE SARS-CoV-2 RNA (RT-PCR) NEGATIVE 09/30/22 10/01/22 10/01/22 20:21 05:48 05:48 MCV 100.3 H MCH 32.9 MCHC 32.8 RDW 13.3 Plt Count 155 L MPV 9.9 Immature Gran % (Auto) 0.4 Neut % (Auto) 68.4 Lymph % (Auto) 20.3 [place] % (Auto) 5.9 Eos % (Auto) 4.2 H Baso % (Auto) 0.8 Lymph # (Auto) 1.1 L [place] # (Auto) 0.3 Eos # (Auto) 0.2 Baso # (Auto) 0.0 Abs Immat Gran (auto) 0.02 Absolute Neuts (auto) 3.6 Absolute Nucleated RBC 0.000 Nucleated RBC % (auto) 0.0 Anion Gap 12 Estim Creat Clear Calc 135.1 Estimated GFR > 60 POC Glucose 211 H Random Glucose 98 Calcium 8.6 Vitamin B12 Folate Influenza Type A (PCR) Influenza Type B (PCR) RSV RNA Qual (PCR) SARS-CoV-2 RNA (RT-PCR) 10/01/22 10/01/22 07:13 11:02 MCV MCH MCHC RDW Plt Count MPV Immature Gran % (Auto) Neut % (Auto) Lymph % (Auto) [place] % (Auto) Eos % (Auto) Baso % (Auto) Lymph # (Auto) [place] # (Auto) Eos # (Auto) Baso # (Auto) Abs Immat Gran (auto) Absolute Neuts (auto) Absolute Nucleated RBC Nucleated RBC % (auto) Anion Gap Estim Creat Clear Calc Estimated GFR POC Glucose 108 184 H Random Glucose Calcium Vitamin B12 Folate Influenza Type A (PCR) Influenza Type B (PCR) RSV RNA Qual (PCR) SARS-CoV-2 RNA (RT-PCR) Assessment and Plan (1) Infection of right hand due to bite: Status: Acute Plan 61-year-old male with history of phy-eemyrzj-xwjgsrfef type 2 diabetes, hypertension, hyperlipidemia, and alcohol abuse presented to the ED admitted for infected dog bite and management of alcohol withdrawal. #Infected dog bite with cellulitis right hand -No leukocytosis. ESR/CRP WNL. afebrile -Bit by unvaccinated dog about 2 months ago -Failed outpt abx with augmentin then ceftin and doxycycline -Initiate zosyn 3.375g q6h (started 09/30) -Appreciate hand surgery input. Plan for debridement 10/02, NPO after midnight -Xray without acute osseous abnormality #Alcohol use disorder with acute intoxication -Acutely intoxicated on arrival, at risk for severe withdrawal -Monitor on CIWA -Phenobarb per protocol -Does not desire detox #Noninsulin dependent type 2 diabetes -Humalog on sliding scale -POC glucose -Diabetic diet -hold metformin #HTN -continue home meds #HLD -continue statin #GERD -continue ppi DVT prophylaxis- heparin Full code Pt requires ongoing inpt stay at least 2 midnights for management of infected dog bite having failed outpt abx requiring IV abx and management of acute alcohol withdrawal Time Spent With Patient Time: Total time managing care of this patient today ____ minutes. Quality Stroke Does the patient have a stroke diagnosis?: No VTE Prior VTE?: No VTE Risk Level:: Medical - moderate - high VTE Device Contraindication: Treatment Not Indicated VTE Drug Contraindication: N/A - Med Ordered
[2022-10-01 16:07] LABS: Glucose, Whole Blood 160 mg/dL (60-115)
[2022-10-01 18:29] LABS: Glucose, Whole Blood 174 mg/dL (60-115)
[2022-10-01 19:13] VITALS: BP 140/73; PULSE 79; RESP 20; TEMP 37.1; O2SAT 97
[2022-10-01 20:48] LABS: Glucose, Whole Blood 121 mg/dL (60-115)
[2022-10-02] VITALS (11 sets, daily range): BP systolic 119–166; BP diastolic 59–87; PULSE 65–90; RESP 14–20; TEMP 36.2–36.9; O2SAT 97–99
[2022-10-02] MEDS: Piperacillin Sodium/Tazobactam 3.375 GM in 0.9 % Sodium Chloride 50 ML IV ×4 (03:44→20:30)
[2022-10-02] MEDS: Heparin Sodium,Porcine 5,000 UNIT/ML VIAL 5000 UNIT SUBCUT ×2 (03:45→16:43)
[2022-10-02 06:10] LABS: MANUAL DIFF FLAG NO
[2022-10-02 06:14] LABS: Eosinophils Absolute Auto 0.3 X10*3/uL (0.0-0.4); Eosinophils Percent Auto 7.7 % (0-4); Hematocrit 36.9 % (42.0-52.0); Hemoglobin 12.3 g/dl (14.0-18.0); Imm Gran Abs Auto 0.01 X10*3/uL (0.00-0.03); Imm Gran Pct Auto 0.3 % (0.0-0.4); Lymphocytes Absolute Auto 1.2 X10*3/uL (1.2-4.9); Lymphocytes Percent Auto 31.1 % (20-40); Mean Corpuscular HGB Conc 33.3 g/dl (31.0-36.0); Mean Corpuscular Hemoglobin 33.2 pg (27.0-33.0); Mean Corpuscular Volume 99.7 fL (80.0-98.0); Mean Platelet Volume 10.1 fL (9.4-12.4); Monocytes Absolute Auto 0.3 X10*3/uL (0.1-1.2); Monocytes Percent Auto 8.2 % (2-11); Neutrophils Percent Auto 51.7 % (45-73); Platelet Count 139 X10*3/uL (160-400); Red Cell Distribution Width 13.1 % (11.0-16.0); White Blood Count 3.9 X10*3/uL (4.8-10.8)
[2022-10-02 06:54] LABS: Anion Gap 12 (12-20); Blood Urea Nitrogen 9 mg/dL (9-16); Calcium 8.4 mg/dL (8.4-10.2); Carbon Dioxide 26 mmol/L (22-29); Chloride 104 mmol/L (96-108); Creatinine Clr Calc Pharmacy 126.7; Estimated Glomerular Filt Rate > 60; Glucose Random 123 mg/dL (60-115); Potassium 3.8 mmol/L (3.3-5.1); Sodium 138 mmol/L (135-145)
[2022-10-02 07:47] LABS: Glucose, Whole Blood 148 mg/dL (60-115)
[2022-10-02] MEDS: PHENobarbitaL 15 MG TABLET 45 MG PO ×2 (08:04→20:26)
[2022-10-02] MEDS: Folic Acid 1 MG TABLET PO (08:06)
[2022-10-02] MEDS: Metoprolol Succinate ER 50 MG TAB.ER.24H PO (08:06)
[2022-10-02] MEDS: Atorvastatin Calcium 10 MG TABLET PO (08:06)
[2022-10-02] MEDS: amLODIPine Besylate 5 MG TABLET PO (08:06)
[2022-10-02] MEDS: 0.9 % Sodium Chloride Flush 3 ML SYRINGE IVFLUSH ×3 (08:08→20:29)
[2022-10-02] MEDS: Thiamine HCL 100 MG in 0.9 % Sodium Chloride 100 ML 202 MG IV (10:09)
[2022-10-02 10:46] LABS: Glucose, Whole Blood 126 mg/dL (60-115)
--- NOTE | 2022-10-02 11:17 | MHC.SHP ---
Pre-Procedural Eval Section A Date of Service: 10/02/22 The patient is an INPATIENT: Yes Changes since office visit: No Cold of Flu in the past 2 weeks, No New Medical Problems, No Changes in Medication and No Patient answered all questions The History & Physical has been completed within 30 days and I have reviewed it.: Yes Section B Chief Complaint: infected dog bite Allergies: Allergies Allergy/AdvReac Type Severity Reaction Status Date / Time bee pollen [BEE STINGS] Allergy Intermediate SWELLING Verified 10/02/22 10:39 polyethylene glycol Allergy Unknown Swelling Verified 10/02/22 10:39 [Golytely] polyethylene glycol 3350 Allergy Unknown Unknown Verified 10/02/22 10:39 [Golytely] potassium chloride [Golytely] Allergy Unknown Unknown Verified 10/02/22 10:39 sodium [Golytely] Allergy Unknown Unknown Verified 10/02/22 10:39 sodium bicarbonate [Golytely] Allergy Unknown Unknown Verified 10/02/22 10:39 sodium chloride [Golytely] Allergy Unknown Unknown Verified 10/02/22 10:39 sodium sulfate [Golytely] Allergy Unknown Unknown Verified 10/02/22 10:39 Plan I have reviewed the history and physical and performed a pertinent physical examination on my patient. No changes have occurred unless specified. Time Spent With Patient Time: Total time managing care of this patient today ____ minutes.
--- NOTE | 2022-10-02 11:18 | W.PM.OPN ---
Operative Note Operative Note Date of Service: 10/02/22 Narrative: Operative Note Narrative: Preop diagnosis: Right dorsal ulnar hand infection with an area of necrotic skin Postop diagnosis: Same Procedure: 1. I and D of right dorsal hand infection 2. Debridement of necrotic skin Surgeon: Kirsten Vargas MD Anesthesia: General Anesthesia Findings: some small amount of purulence found beneath necrotic skin. I did not find evidence of any deeper abscesses. He does appear to have some granulation tissue filling in the wound. No exposure of tendon or bone. Implants: None Tourniquet time: 37 minutes EBL: 5.0 ml Specimen: cultures taken of fluid from beneath necrotic skin Drains: None Complications: None Disposition: Brought to the recovery room in stable condition Plan: admit back to floor. Dressing change tomorrow. Patient can likely be discharged soon on oral antibiotics and with the plan for daily wound care. Daily wound care is critical. I recommend a consult with the wound care clinic. Indications: The patient is a [age] year old man with a chronic wound over the dorsal aspect of his right hand from a dog bite about a month ago. He also has problems with alcoholism and homelessness. . The risks and benefits of operative treatment, including but not limited to risk of damage to blood vessels, nerves, tendons, infection, recurrence, persistent pain or numbness, incomplete resolution of preoperative symptoms, or need for further surgery were discussed with the patient and they wished to proceed with surgery. Procedure: Once consent was obtained patient was brought back to the operating suite and placed in the operating table in a supine position. Anesthesia was administered by the anesthesia team. A tourniquet was applied to the proximal aspect of the Right upper extremity and the limb was prepped and draped in a standard surgical fashion. the tourniquet was not inflated during the case. I used a 15. Blade to elevate the fairly large area of necrotic skin from the dorsal ulnar aspect of his right hand. Beneath the skin was some purulence and cultures were taken. I carefully excised the Fairly large area of necrotic skin from the underlying soft tissue using a 15. Blade.. He appeared to have reasonable pink , vascularized granulation tissue beneath it. The wound was roughly 5 cm in length by about 2-2.5 cm in width. I did not see or appreciate any deeper abscesses. There was some fibrinous exudate that was also removed from the wound bed. There were no exposed tendons or bone. Also of note, he has significant intrinsic wasting in the hand. Hemostasis obtained with a brief period of local pressure and bipolar electrocautery. The wound was copiously irrigated with normal saline. I applied a small amount of antibiotic ointment and a sterile dressing was applied. The patient appears to have tolerated the procedure well and with no complications. All digits were well vascularized conclusion of the case.
--- NOTE | 2022-10-02 11:55 | P.CONAN_ITS ---
HPI - Anesthesia Eval Consult details Narrative: 61 yr old homeless , alcoholic for finger Iand D PMFSH Active Problems Active Problems: All Active Problems (Updated 09/30/22 @ 19:22 by Kirsten Vargas MD) Painful arc syndrome of left shoulder (Acute) Tendinopathy of rotator cuff (Acute) Alcoholic intoxication (Acute) Deep wound due to dog bite (Acute) Infection of right hand due to bite (Acute) Alcohol use disorder (Acute) Past Medical History Medical History (Updated 09/30/22 @ 19:22 by Kirsten Vargas MD) Alcohol use disorder Diabetes GERD (gastroesophageal reflux disease) HTN (hypertension) Family History Family history of problems with anesthesia: No Surgical History Surgical History (Updated 10/02/22 @ 10:38 by Aida Singh) History of colonoscopy History of endoscopy Hx of pelvic surgery History of Problems with Anesthesia: No Social History Social History Household Members: None Housing: Homeless Alcohol intake: current Alcohol intake frequency: a few times a week Alcohol type: beer Patient Tobacco Use Status: Former Tobacco user Quit Date: 1999 Tobacco use type: Cigarette Years Smoked: 3 Second Hand Smoke Exposure: No service: No Current occupational status: unemployed 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 Meds Allergies Allergy/AdvReac Type Severity Reaction Status Date / Time bee pollen [BEE STINGS] Allergy Intermediate SWELLING Verified 10/02/22 10:39 polyethylene glycol Allergy Unknown Swelling Verified 10/02/22 10:39 [Golytely] polyethylene glycol 3350 Allergy Unknown Unknown Verified 10/02/22 10:39 [Golytely] potassium chloride [Golytely] Allergy Unknown Unknown Verified 10/02/22 10:39 sodium [Golytely] Allergy Unknown Unknown Verified 10/02/22 10:39 sodium bicarbonate [Golytely] Allergy Unknown Unknown Verified 10/02/22 10:39 sodium chloride [Golytely] Allergy Unknown Unknown Verified 10/02/22 10:39 sodium sulfate [Golytely] Allergy Unknown Unknown Verified 10/02/22 10:39 Active Medications: Current Medications Acetaminophen (Acetaminophen 325 Mg Tablet) 650 mg PO Q6H PRN PRN Reason: Pain, Mild (Pain Scale 1-3) Amlodipine Besylate (Amlodipine Besylate 5 Mg Tablet) 5 mg PO DAILY [facility]; Protocol Last Admin: 10/02/22 08:06 Dose: 5 mg Atorvastatin Calcium (Atorvastatin Calcium 10 Mg Tablet) 10 mg PO DAILY [facility] Last Admin: 10/02/22 08:06 Dose: 10 mg Docusate Sodium (Docusate Sodium 100 Mg Capsule) 100 mg PO DAILY PRN PRN Reason: Constipation Folic Acid (Folic Acid 1 Mg Tablet) 1 mg PO DAILY [facility] Last Admin: 10/02/22 08:06 Dose: 1 mg Glucose (Glucose Gel 15 Gm Gel..Gram.) 15 gm PO Q15M PRN; Protocol PRN Reason: per Hypoglycemia Standing Ord. Heparin Sodium (Porcine) (Heparin Sodium,Porcine 5,000 Unit/Ml Vial) 5,000 unit SUBCUT Q12H [facility] Last Admin: 10/02/22 03:45 Dose: 5,000 unit Piperacillin Sod/Tazobactam (Sod 3.375 gm/ Sodium Chloride) 50 mls @ 100 mls/hr IV Q6H [facility] Last Infusion: 10/02/22 10:34 Dose: Infused Dextrose (D10) 250 mls @ 750 mls/hr IV Q15M PRN; Protocol PRN Reason: per Hypoglycemia Standing Ord. Cefazolin Sodium/Dextrose (Ancef) 2 gm in 50 mls @ 100 mls/hr IV PREOP ONE Stop: 10/02/22 16:12 Thiamine HCl 100 mg/ Sodium (Chloride) 101 mls @ 202 mls/hr IV DAILY [facility] Stop: 10/03/22 09:29 Last Admin: 10/02/22 10:09 Dose: 202 mls/hr Insulin Human Lispro (Insulin Lispro 100 Unit/Ml 3 Ml Vial) 0 unit SUBCUT QIDACHS [facility]; Protocol Last Admin: 10/02/22 07:49 Dose: Not Given Metoprolol Succinate (Metoprolol Succinate Er 50 Mg Tab.Er.24h) 50 mg PO DAILY [facility]; Protocol Last Admin: 10/02/22 08:06 Dose: 50 mg Naproxen (Naproxen 500 Mg Tablet) 500 mg PO BID PRN PRN Reason: Pain, Mild (Pain Scale 1-3) Omeprazole (Omeprazole 20 Mg Capsule.Dr) 20 mg PO DAILY@0630 [facility] Last Admin: 10/02/22 04:18 Dose: Not Given Ondansetron HCl (Ondansetron Hcl 4 Mg/2 Ml Vial) 4 mg IVPUSH Q8H PRN PRN Reason: Nausea and Vomiting Pharmacy Consult (Consult Rx Etoh Phenob Im/Po) 1 each MISCELLANE ONCE PRN; Protocol PRN Reason: Consult order Phenobarbital (Phenobarbital 15 Mg Tablet) 45 mg PO BID [facility]; Protocol Stop: 10/02/22 21:01 Last Admin: 10/02/22 08:04 Dose: 45 mg Phenobarbital (Phenobarbital 15 Mg Tablet) 15 mg PO BID [facility]; Protocol Stop: 10/04/22 21:01 Phenobarbital (Phenobarbital 15 Mg Tablet) 15 mg PO DAILY [facility]; Protocol Stop: 10/06/22 09:01 Sodium Chloride (0.9 % Sodium Chloride Flush 3 Ml Syringe) [facility] Last Admin: 10/02/22 08:08 Dose: 3 ml Home Medications Medication Instructions Recorded Confirmed Last Taken Type amlodipine 5 mg tablet 5 mg PO DAILY 09/30/22 09/30/22 Unknown History atorvastatin 10 mg tablet 10 mg PO DAILY 09/30/22 09/30/22 Unknown History metformin 500 mg tablet 500 mg PO BID 09/30/22 09/30/22 Unknown History metoprolol succinate 50 mg 50 mg PO DAILY 09/30/22 09/30/22 Unknown History tablet,extended release 24 hr omeprazole 20 mg capsule,delayed 20 mg PO DAILY@0630 09/30/22 09/30/22 Unknown History release Exam Exam Date and Time: October 02, 2022 1155 Height,Weight and Vital Signs: Height 5 ft 10 in Weight 81.647 kg Last Vital Signs Temp 97.6 F 10/02/22 10:39 Pulse 65 10/02/22 10:39 Resp 16 10/02/22 10:39 BP 145/87 H 10/02/22 10:39 Pulse Ox 99 10/02/22 10:39 O2 Del Method Room Air 10/02/22 10:39 Pertinent Lab Results Pertinent Lab Results: Laboratory Tests 09/30/22 09/30/22 09/30/22 00:08 00:08 14:21 WBC 4.2 L RBC 4.17 L Hgb 13.8 L Hct 41.5 L MCV 99.5 H MCH 33.1 H MCHC 33.3 RDW 13.4 Plt Count 162 D MPV 9.1 L Immature Gran % (Auto) 0.0 Neut % (Auto) 66.2 Lymph % (Auto) 25.4 [place] % (Auto) 4.5 Eos % (Auto) 2.9 Baso % (Auto) 1.0 Lymph # (Auto) 1.1 L [place] # (Auto) 0.2 Eos # (Auto) 0.1 Baso # (Auto) 0.0 Abs Immat Gran (auto) 0.00 Absolute Neuts (auto) 2.8 Absolute Nucleated RBC 0.000 Nucleated RBC % (auto) 0.0 ESR Sodium Potassium Chloride Carbon Dioxide Anion Gap BUN Creatinine Estim Creat Clear Calc Estimated GFR POC Glucose Random Glucose Lactic Acid Calcium C-Reactive Protein Vitamin B12 Folate Urine Color Yellow Urine Appearance Clear Urine pH 6.0 Ur Specific [place] <= 1.005 Urine Protein Negative Urine Glucose (UA) Negative Urine Ketones Negative Urine Blood Negative Urine Nitrite Negative Ur Leukocyte Esterase Negative Urine RBC 0-2 Urine WBC 0-5 Ur Squamous Epith Cells 0-2 Urine Bacteria None Seen Hyaline Casts 0-2 Urine Opiates Screen Not Detected Urine Fentanyl Screen Not Detected Ur Barbiturates Screen Not Detected Ur Phencyclidine Scrn Not Detected Ur Amphetamines Screen Not Detected U Benzodiazepines Scrn Not Detected Urine Cocaine Screen Not Detected U Marijuana (THC) Screen Not Detected Influenza Type A (PCR) Influenza Type B (PCR) RSV RNA Qual (PCR) SARS-CoV-2 RNA (RT-PCR) 09/30/22 09/30/22 09/30/22 14:21 14:21 14:21 WBC RBC Hgb Hct MCV MCH MCHC RDW Plt Count MPV Immature Gran % (Auto) Neut % (Auto) Lymph % (Auto) [place] % (Auto) Eos % (Auto) Baso % (Auto) Lymph # (Auto) [place] # (Auto) Eos # (Auto) Baso # (Auto) Abs Immat Gran (auto) Absolute Neuts (auto) Absolute Nucleated RBC Nucleated RBC % (auto) ESR 9 Sodium 143 Potassium 4.0 Chloride 108 Carbon Dioxide 25 Anion Gap 14 BUN 6 L Creatinine 0.56 Estim Creat Clear Calc 144.8 Estimated GFR > 60 POC Glucose Random Glucose 96 Lactic Acid 1.1 Calcium 8.7 C-Reactive Protein 0.11 Vitamin B12 279 Folate 11.0 Urine Color Urine Appearance Urine pH Ur Specific [place] Urine Protein Urine Glucose (UA) Urine Ketones Urine Blood Urine Nitrite Ur Leukocyte Esterase Urine RBC Urine WBC Ur Squamous Epith Cells Urine Bacteria Hyaline Casts Urine Opiates Screen Urine Fentanyl Screen Ur Barbiturates Screen Ur Phencyclidine Scrn Ur Amphetamines Screen U Benzodiazepines Scrn Urine Cocaine Screen U Marijuana (THC) Screen Influenza Type A (PCR) Influenza Type B (PCR) RSV RNA Qual (PCR) SARS-CoV-2 RNA (RT-PCR) 09/30/22 09/30/22 09/30/22 15:39 17:19 20:21 WBC RBC Hgb Hct MCV MCH MCHC RDW Plt Count MPV Immature Gran % (Auto) Neut % (Auto) Lymph % (Auto) [place] % (Auto) Eos % (Auto) Baso % (Auto) Lymph # (Auto) [place] # (Auto) Eos # (Auto) Baso # (Auto) Abs Immat Gran (auto) Absolute Neuts (auto) Absolute Nucleated RBC Nucleated RBC % (auto) ESR Sodium Potassium Chloride Carbon Dioxide Anion Gap BUN Creatinine Estim Creat Clear Calc Estimated GFR POC Glucose 81 211 H Random Glucose Lactic Acid Calcium C-Reactive Protein Vitamin B12 Folate Urine Color Urine Appearance Urine pH Ur Specific [place] Urine Protein Urine Glucose (UA) Urine Ketones Urine Blood Urine Nitrite Ur Leukocyte Esterase Urine RBC Urine WBC Ur Squamous Epith Cells Urine Bacteria Hyaline Casts Urine Opiates Screen Urine Fentanyl Screen Ur Barbiturates Screen Ur Phencyclidine Scrn Ur Amphetamines Screen U Benzodiazepines Scrn Urine Cocaine Screen U Marijuana (THC) Screen Influenza Type A (PCR) NEGATIVE Influenza Type B (PCR) NEGATIVE RSV RNA Qual (PCR) NEGATIVE SARS-CoV-2 RNA (RT-PCR) NEGATIVE 10/01/22 10/01/22 10/01/22 05:48 05:48 07:13 WBC 5.2 RBC 3.89 L Hgb 12.8 L Hct 39.0 L MCV 100.3 H MCH 32.9 MCHC 32.8 RDW 13.3 Plt Count 155 L MPV 9.9 Immature Gran % (Auto) 0.4 Neut % (Auto) 68.4 Lymph % (Auto) 20.3 [place] % (Auto) 5.9 Eos % (Auto) 4.2 H Baso % (Auto) 0.8 Lymph # (Auto) 1.1 L [place] # (Auto) 0.3 Eos # (Auto) 0.2 Baso # (Auto) 0.0 Abs Immat Gran (auto) 0.02 Absolute Neuts (auto) 3.6 Absolute Nucleated RBC 0.000 Nucleated RBC % (auto) 0.0 ESR Sodium 141 Potassium 4.0 Chloride 106 Carbon Dioxide 27 Anion Gap 12 BUN 10 Creatinine 0.60 Estim Creat Clear Calc 135.1 Estimated GFR > 60 POC Glucose 108 Random Glucose 98 Lactic Acid Calcium 8.6 C-Reactive Protein Vitamin B12 Folate Urine Color Urine Appearance Urine pH Ur Specific [place] Urine Protein Urine Glucose (UA) Urine Ketones Urine Blood Urine Nitrite Ur Leukocyte Esterase Urine RBC Urine WBC Ur Squamous Epith Cells Urine Bacteria Hyaline Casts Urine Opiates Screen Urine Fentanyl Screen Ur Barbiturates Screen Ur Phencyclidine Scrn Ur Amphetamines Screen U Benzodiazepines Scrn Urine Cocaine Screen U Marijuana (THC) Screen Influenza Type A (PCR) Influenza Type B (PCR) RSV RNA Qual (PCR) SARS-CoV-2 RNA (RT-PCR) 10/01/22 10/01/22 10/01/22 11:02 16:03 18:22 WBC RBC Hgb Hct MCV MCH MCHC RDW Plt Count MPV Immature Gran % (Auto) Neut % (Auto) Lymph % (Auto) [place] % (Auto) Eos % (Auto) Baso % (Auto) Lymph # (Auto) [place] # (Auto) Eos # (Auto) Baso # (Auto) Abs Immat Gran (auto) Absolute Neuts (auto) Absolute Nucleated RBC Nucleated RBC % (auto) ESR Sodium Potassium Chloride Carbon Dioxide Anion Gap BUN Creatinine Estim Creat Clear Calc Estimated GFR POC Glucose 184 H 160 H 174 H Random Glucose Lactic Acid Calcium C-Reactive Protein Vitamin B12 Folate Urine Color Urine Appearance Urine pH Ur Specific [place] Urine Protein Urine Glucose (UA) Urine Ketones Urine Blood Urine Nitrite Ur Leukocyte Esterase Urine RBC Urine WBC Ur Squamous Epith Cells Urine Bacteria Hyaline Casts Urine Opiates Screen Urine Fentanyl Screen Ur Barbiturates Screen Ur Phencyclidine Scrn Ur Amphetamines Screen U Benzodiazepines Scrn Urine Cocaine Screen U Marijuana (THC) Screen Influenza Type A (PCR) Influenza Type B (PCR) RSV RNA Qual (PCR) SARS-CoV-2 RNA (RT-PCR) 10/01/22 10/02/22 10/02/22 20:44 05:34 05:34 WBC 3.9 L RBC 3.70 L Hgb 12.3 L Hct 36.9 L MCV 99.7 H MCH 33.2 H MCHC 33.3 RDW 13.1 Plt Count 139 L MPV 10.1 Immature Gran % (Auto) 0.3 Neut % (Auto) 51.7 Lymph % (Auto) 31.1 [place] % (Auto) 8.2 Eos % (Auto) 7.7 H Baso % (Auto) 1.0 Lymph # (Auto) 1.2 [place] # (Auto) 0.3 Eos # (Auto) 0.3 Baso # (Auto) 0.0 Abs Immat Gran (auto) 0.01 Absolute Neuts (auto) 2.0 Absolute Nucleated RBC 0.000 Nucleated RBC % (auto) 0.0 ESR Sodium 138 Potassium 3.8 Chloride 104 Carbon Dioxide 26 Anion Gap 12 BUN 9 Creatinine 0.64 Estim Creat Clear Calc 126.7 Estimated GFR > 60 POC Glucose 121 H Random Glucose 123 H Lactic Acid Calcium 8.4 C-Reactive Protein Vitamin B12 Folate Urine Color Urine Appearance Urine pH Ur Specific [place] Urine Protein Urine Glucose (UA) Urine Ketones Urine Blood Urine Nitrite Ur Leukocyte Esterase Urine RBC Urine WBC Ur Squamous Epith Cells Urine Bacteria Hyaline Casts Urine Opiates Screen Urine Fentanyl Screen Ur Barbiturates Screen Ur Phencyclidine Scrn Ur Amphetamines Screen U Benzodiazepines Scrn Urine Cocaine Screen U Marijuana (THC) Screen Influenza Type A (PCR) Influenza Type B (PCR) RSV RNA Qual (PCR) SARS-CoV-2 RNA (RT-PCR) 10/02/22 10/02/22 07:27 10:43 WBC RBC Hgb Hct MCV MCH MCHC RDW Plt Count MPV Immature Gran % (Auto) Neut % (Auto) Lymph % (Auto) [place] % (Auto) Eos % (Auto) Baso % (Auto) Lymph # (Auto) [place] # (Auto) Eos # (Auto) Baso # (Auto) Abs Immat Gran (auto) Absolute Neuts (auto) Absolute Nucleated RBC Nucleated RBC % (auto) ESR Sodium Potassium Chloride Carbon Dioxide Anion Gap BUN Creatinine Estim Creat Clear Calc Estimated GFR POC Glucose 148 H 126 H Random Glucose Lactic Acid Calcium C-Reactive Protein Vitamin B12 Folate Urine Color Urine Appearance Urine pH Ur Specific [place] Urine Protein Urine Glucose (UA) Urine Ketones Urine Blood Urine Nitrite Ur Leukocyte Esterase Urine RBC Urine WBC Ur Squamous Epith Cells Urine Bacteria Hyaline Casts Urine Opiates Screen Urine Fentanyl Screen Ur Barbiturates Screen Ur Phencyclidine Scrn Ur Amphetamines Screen U Benzodiazepines Scrn Urine Cocaine Screen U Marijuana (THC) Screen Influenza Type A (PCR) Influenza Type B (PCR) RSV RNA Qual (PCR) SARS-CoV-2 RNA (RT-PCR) Narrative Narrative: poor dentition Airway Mallampati Class: II TM Dist: >3cm Neck ROM: Full Heart: rrr Lungs: cta Assessment and Plan Assessment Anesthesia Assessment: Anesthesia Plan Discussed Final Anesthetic Review Family History of Problems with Anesthesia: No History of Problems with Anesthesia: No NPO: Yes ASA Class: III Final Preanesthetic Review: No Changes in Pt Med Stat, Meds/Allgs Chart Reviewed, Consent Obtained/Reviewed and Anes Risks/Benef Reviewed Patient Risk: Intermediate Procedure Risk: Intermediate Anesthetic Plan Anesthetic Plan: GA Disposition: Standard PACU
--- NOTE | 2022-10-02 12:48 | P.PNIM_ITS ---
Subjective Subjective Date of Service: 10/02/22 Interval History: seen and examined this morning Follow-up for right hand infection, alcohol withdrawal Reporting right hand pain. Denies associated fever, chills. Denies anxiety sweating shakiness Review of Systems Review of Systems: Yes all other systems are reviewed and are negative Constitutional Constitutional: Denies chills and Denies fever(s) Cardiovascular Cardiovascular: Denies chest pain Gastrointestinal Gastrointestinal: Denies abdominal pain Physical Exam Vital Signs: Vital Signs: Last Vital Signs Temp 97.6 F 10/02/22 10:39 Pulse 65 10/02/22 10:39 Resp 16 10/02/22 10:39 BP 145/87 H 10/02/22 10:39 Pulse Ox 99 10/02/22 10:39 O2 Del Method Room Air 10/02/22 10:39 BMI result Body Mass Index 25.8 Const: General: cooperative, comfortable, alert and awake Nutritional Appearance: average body habitus Orientation/consciousness: patient oriented x3 Resp: Effort & Inspection: normal respiratory effort and able to speak in complete sentences Auscultation: clear to auscultation bilaterally Cardio: Rate: regular rate Heart sounds: S1 normal heart sound present and S2 normal heart sound present GI: Inspection: No distended Palpation (GI): Soft to palpation and nontender Skin: Other: right hand wrapped in C/D/I dressing Neuro: General: patient oriented x3 and CN's II-XI intact bilaterally Extrem: General: Yes no pedal edema Objective Data Active Medications Acetaminophen (Acetaminophen 325 Mg Tablet) 650 mg PO Q6H PRN PRN Reason: Pain, Mild (Pain Scale 1-3) Amlodipine Besylate (Amlodipine Besylate 5 Mg Tablet) 5 mg PO DAILY [facility]; Protocol Last Admin: 10/02/22 08:06 Dose: 5 mg Documented By: JAIRO Atorvastatin Calcium (Atorvastatin Calcium 10 Mg Tablet) 10 mg PO DAILY [facility] Last Admin: 10/02/22 08:06 Dose: 10 mg Documented By: JAIRO Docusate Sodium (Docusate Sodium 100 Mg Capsule) 100 mg PO DAILY PRN PRN Reason: Constipation Fentanyl (Fentanyl Citrate/Pf 100 Mcg/2 Ml Vial) 25 mcg IVPUSH Q5M PRN; Protocol PRN Reason: Pain, Moderate (Pain Scale 4-6 Folic Acid (Folic Acid 1 Mg Tablet) 1 mg PO DAILY [facility] Last Admin: 10/02/22 08:06 Dose: 1 mg Documented By: JAIRO Glucose (Glucose Gel 15 Gm Gel..Gram.) 15 gm PO Q15M PRN; Protocol PRN Reason: per Hypoglycemia Standing Ord. Heparin Sodium (Porcine) (Heparin Sodium,Porcine 5,000 Unit/Ml Vial) 5,000 unit SUBCUT Q12H [facility] Last Admin: 10/02/22 03:45 Dose: 5,000 unit Documented By: REI Piperacillin Sod/Tazobactam (Sod 3.375 gm/ Sodium Chloride) 50 mls @ 100 mls/hr IV Q6H [facility] Last Infusion: 10/02/22 10:34 Dose: 0 mls/hr Documented By: ADRIAN Dextrose (D10) 250 mls @ 750 mls/hr IV Q15M PRN; Protocol PRN Reason: per Hypoglycemia Standing Ord. Cefazolin Sodium/Dextrose (Ancef) 2 gm in 50 mls @ 100 mls/hr IV PREOP ONE Stop: 10/02/22 16:12 Thiamine HCl 100 mg/ Sodium (Chloride) 101 mls @ 202 mls/hr IV DAILY [facility] Stop: 10/03/22 09:29 Last Admin: 10/02/22 10:09 Dose: 202 mls/hr Documented By: ADRIAN Insulin Human Lispro (Insulin Lispro 100 Unit/Ml 3 Ml Vial) 0 unit SUBCUT QIDACHS [facility]; Protocol Last Admin: 10/02/22 07:49 Dose: Not Given Documented By: JAIRO Non-Admin Reason: No Insulin Coverage Metoprolol Succinate (Metoprolol Succinate Er 50 Mg Tab.Er.24h) 50 mg PO DAILY [facility]; Protocol Last Admin: 10/02/22 08:06 Dose: 50 mg Documented By: JAIRO Naproxen (Naproxen 500 Mg Tablet) 500 mg PO BID PRN PRN Reason: Pain, Mild (Pain Scale 1-3) Omeprazole (Omeprazole 20 Mg Capsule.Dr) 20 mg PO DAILY@0630 [facility] Last Admin: 10/02/22 04:18 Dose: Not Given Documented By: REI Non-Admin Reason: NPO Ondansetron HCl (Ondansetron Hcl 4 Mg/2 Ml Vial) 4 mg IVPUSH Q8H PRN PRN Reason: Nausea and Vomiting Ondansetron HCl (Ondansetron Hcl 4 Mg/2 Ml Vial) 4 mg IVPUSH ONCE PRN PRN Reason: Nausea and Vomiting Oxycodone HCl (Oxycodone Hcl Immed Release 5 Mg Tablet) 5 mg PO ONCE PRN PRN Reason: Pain, Severe (Pain Scale 7-10) Pharmacy Consult (Consult Rx Etoh Phenob Im/Po) 1 each MISCELLANE ONCE PRN; Protocol PRN Reason: Consult order Phenobarbital (Phenobarbital 15 Mg Tablet) 45 mg PO BID [facility]; Protocol Stop: 10/02/22 21:01 Last Admin: 10/02/22 08:04 Dose: 45 mg Documented By: JAIRO Phenobarbital (Phenobarbital 15 Mg Tablet) 15 mg PO BID [facility]; Protocol Stop: 10/04/22 21:01 Phenobarbital (Phenobarbital 15 Mg Tablet) 15 mg PO DAILY [facility]; Protocol Stop: 10/06/22 09:01 Sodium Chloride (0.9 % Sodium Chloride Flush 3 Ml Syringe) 3 ml IVFLUSH [facility] Last Admin: 10/02/22 08:08 Dose: 3 ml Documented By: JAIRO Labs 10/02/22 05:34 10/02/22 05:34 Labs: Laboratory Results - last 24 hr 10/01/22 10/01/22 10/01/22 16:03 18:22 20:44 MCV MCH MCHC RDW Plt Count MPV Immature Gran % (Auto) Neut % (Auto) Lymph % (Auto) [place] % (Auto) Eos % (Auto) Baso % (Auto) Lymph # (Auto) [place] # (Auto) Eos # (Auto) Baso # (Auto) Abs Immat Gran (auto) Absolute Neuts (auto) Absolute Nucleated RBC Nucleated RBC % (auto) Anion Gap Estim Creat Clear Calc Estimated GFR POC Glucose 160 H 174 H 121 H Random Glucose Calcium 10/02/22 10/02/22 10/02/22 05:34 05:34 07:27 MCV 99.7 H MCH 33.2 H MCHC 33.3 RDW 13.1 Plt Count 139 L MPV 10.1 Immature Gran % (Auto) 0.3 Neut % (Auto) 51.7 Lymph % (Auto) 31.1 [place] % (Auto) 8.2 Eos % (Auto) 7.7 H Baso % (Auto) 1.0 Lymph # (Auto) 1.2 [place] # (Auto) 0.3 Eos # (Auto) 0.3 Baso # (Auto) 0.0 Abs Immat Gran (auto) 0.01 Absolute Neuts (auto) 2.0 Absolute Nucleated RBC 0.000 Nucleated RBC % (auto) 0.0 Anion Gap 12 Estim Creat Clear Calc 126.7 Estimated GFR > 60 POC Glucose 148 H Random Glucose 123 H Calcium 8.4 10/02/22 10:43 MCV MCH MCHC RDW Plt Count MPV Immature Gran % (Auto) Neut % (Auto) Lymph % (Auto) [place] % (Auto) Eos % (Auto) Baso % (Auto) Lymph # (Auto) [place] # (Auto) Eos # (Auto) Baso # (Auto) Abs Immat Gran (auto) Absolute Neuts (auto) Absolute Nucleated RBC Nucleated RBC % (auto) Anion Gap Estim Creat Clear Calc Estimated GFR POC Glucose 126 H Random Glucose Calcium Microbiology Microbiology Results: Microbiology 09/30/22 14:28 Blood Culture - Preliminary Blood - Venous No growth after 24 hours. 09/30/22 14:21 Blood Culture - Preliminary Blood - Venous No growth after 24 hours. Assessment and Plan (1) Infection of right hand due to bite: Status: Acute Plan 61-year-old male with history of [id number] type 2 diabetes, hypertension, hyperlipidemia, and alcohol abuse presented to the ED admitted for infected dog bite and management of alcohol withdrawal. #Infected dog bite with cellulitis right hand -No leukocytosis. ESR/CRP WNL. afebrile. Xray without acute osseous abnormality -Bit by unvaccinated dog about 2 months ago. Failed outpt abx with augmentin then ceftin and doxycycline -Initiate zosyn 3.375g q6h (started 09/30) -Appreciate hand surgery input. Plan for debridement 10/02 -blood cultures negative to date #Alcohol use disorder with acute intoxication -Acutely intoxicated on arrival, at risk for severe withdrawal -Monitor on CIWA -continue Phenobarb per protocol -Does not desire detox - continue thiamine, folic acid supplementation # chronic macrocytic anemia H/ H stable, above transfusion threshold #Noninsulin dependent type 2 diabetes -Humalog on sliding scale -POC glucose -Diabetic diet -hold metformin #HTN -continue home meds #HLD -continue statin #GERD -continue ppi DVT prophylaxis- heparin Full code attending-Dr. Glass Pt requires ongoing inpt stay at least 2 midnights for management of infected dog bite having failed outpt abx requiring IV abx and management of acute alcohol withdrawal Time Spent With Patient Time: Total time managing care of this patient today ____ minutes. Quality Stroke Does the patient have a stroke diagnosis?: No VTE Prior VTE?: No VTE Risk Level:: Medical - moderate - high VTE Device Contraindication: Treatment Not Indicated VTE Drug Contraindication: N/A - Med Ordered
--- NOTE | 2022-10-02 13:41 | P.CONAN_ITS ---
HPI - Anesthesia Eval Consult details Narrative: i& d right hand PMFSH Active Problems Active Problems: All Active Problems (Updated 09/30/22 @ 19:22 by Kirsten Vargas MD) Painful arc syndrome of left shoulder (Acute) Tendinopathy of rotator cuff (Acute) Alcoholic intoxication (Acute) Deep wound due to dog bite (Acute) Infection of right hand due to bite (Acute) Alcohol use disorder (Acute) Past Medical History Medical History (Updated 09/30/22 @ 19:22 by Kirsten Vargas MD) Alcohol use disorder Diabetes GERD (gastroesophageal reflux disease) HTN (hypertension) Family History Family history of problems with anesthesia: No Surgical History Surgical History (Updated 10/02/22 @ 10:38 by Aida Singh) History of colonoscopy History of endoscopy Hx of pelvic surgery History of Problems with Anesthesia: No Social History Social History Household Members: None Housing: Homeless Alcohol intake: current Alcohol intake frequency: a few times a week Alcohol type: beer Patient Tobacco Use Status: Former Tobacco user Quit Date: 1999 Tobacco use type: Cigarette Years Smoked: 3 Second Hand Smoke Exposure: No service: No Current occupational status: unemployed 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 Meds Allergies Allergy/AdvReac Type Severity Reaction Status Date / Time bee pollen [BEE STINGS] Allergy Intermediate SWELLING Verified 10/02/22 10:39 polyethylene glycol Allergy Unknown Swelling Verified 10/02/22 10:39 [Golytely] polyethylene glycol 3350 Allergy Unknown Unknown Verified 10/02/22 10:39 [Golytely] potassium chloride [Golytely] Allergy Unknown Unknown Verified 10/02/22 10:39 sodium [Golytely] Allergy Unknown Unknown Verified 10/02/22 10:39 sodium bicarbonate [Golytely] Allergy Unknown Unknown Verified 10/02/22 10:39 sodium chloride [Golytely] Allergy Unknown Unknown Verified 10/02/22 10:39 sodium sulfate [Golytely] Allergy Unknown Unknown Verified 10/02/22 10:39 Active Medications: Current Medications Acetaminophen (Acetaminophen 325 Mg Tablet) 650 mg PO Q6H PRN PRN Reason: Pain, Mild (Pain Scale 1-3) Amlodipine Besylate (Amlodipine Besylate 5 Mg Tablet) 5 mg PO DAILY [facility]; Protocol Last Admin: 10/02/22 08:06 Dose: 5 mg Atorvastatin Calcium (Atorvastatin Calcium 10 Mg Tablet) 10 mg PO DAILY [facility] Last Admin: 10/02/22 08:06 Dose: 10 mg Docusate Sodium (Docusate Sodium 100 Mg Capsule) 100 mg PO DAILY PRN PRN Reason: Constipation Fentanyl (Fentanyl Citrate/Pf 100 Mcg/2 Ml Vial) 25 mcg IVPUSH Q5M PRN; Protocol PRN Reason: Pain, Moderate (Pain Scale 4-6 Folic Acid (Folic Acid 1 Mg Tablet) 1 mg PO DAILY [facility] Last Admin: 10/02/22 08:06 Dose: 1 mg Glucose (Glucose Gel 15 Gm Gel..Gram.) 15 gm PO Q15M PRN; Protocol PRN Reason: per Hypoglycemia Standing Ord. Heparin Sodium (Porcine) (Heparin Sodium,Porcine 5,000 Unit/Ml Vial) 5,000 unit SUBCUT Q12H [facility] Last Admin: 10/02/22 03:45 Dose: 5,000 unit Piperacillin Sod/Tazobactam (Sod 3.375 gm/ Sodium Chloride) 50 mls @ 100 mls/hr IV Q6H [facility] Last Infusion: 10/02/22 10:34 Dose: Infused Dextrose (D10) 250 mls @ 750 mls/hr IV Q15M PRN; Protocol PRN Reason: per Hypoglycemia Standing Ord. Cefazolin Sodium/Dextrose (Ancef) 2 gm in 50 mls @ 100 mls/hr IV PREOP ONE Stop: 10/02/22 16:12 Thiamine HCl 100 mg/ Sodium (Chloride) 101 mls @ 202 mls/hr IV DAILY [facility] Stop: 10/03/22 09:29 Last Admin: 10/02/22 10:09 Dose: 202 mls/hr Insulin Human Lispro (Insulin Lispro 100 Unit/Ml 3 Ml Vial) 0 unit SUBCUT QIDACHS [facility]; Protocol Last Admin: 10/02/22 07:49 Dose: Not Given Metoprolol Succinate (Metoprolol Succinate Er 50 Mg Tab.Er.24h) 50 mg PO DAILY [facility]; Protocol Last Admin: 10/02/22 08:06 Dose: 50 mg Omeprazole (Omeprazole 20 Mg Capsule.Dr) 20 mg PO DAILY@0630 [facility] Last Admin: 10/02/22 04:18 Dose: Not Given Ondansetron HCl (Ondansetron Hcl 4 Mg/2 Ml Vial) 4 mg IVPUSH Q8H PRN PRN Reason: Nausea and Vomiting Ondansetron HCl (Ondansetron Hcl 4 Mg/2 Ml Vial) 4 mg IVPUSH ONCE PRN PRN Reason: Nausea and Vomiting Oxycodone HCl (Oxycodone Hcl Immed Release 5 Mg Tablet) 5 mg PO ONCE PRN PRN Reason: Pain, Severe (Pain Scale 7-10) Pharmacy Consult (Consult Rx Etoh Phenob Im/Po) 1 each MISCELLANE ONCE PRN; Protocol PRN Reason: Consult order Phenobarbital (Phenobarbital 15 Mg Tablet) 45 mg PO BID [facility]; Protocol Stop: 10/02/22 21:01 Last Admin: 10/02/22 08:04 Dose: 45 mg Phenobarbital (Phenobarbital 15 Mg Tablet) 15 mg PO BID [facility]; Protocol Stop: 10/04/22 21:01 Phenobarbital (Phenobarbital 15 Mg Tablet) 15 mg PO DAILY [facility]; Protocol Stop: 10/06/22 09:01 Sodium Chloride (0.9 % Sodium Chloride Flush 3 Ml Syringe) 3 ml IVFLUSH [facility] Last Admin: 10/02/22 08:08 Dose: 3 ml Home Medications Medication Instructions Recorded Confirmed Last Taken Type amlodipine 5 mg tablet 5 mg PO DAILY 09/30/22 09/30/22 Unknown History atorvastatin 10 mg tablet 10 mg PO DAILY 09/30/22 09/30/22 Unknown History metformin 500 mg tablet 500 mg PO BID 09/30/22 09/30/22 Unknown History metoprolol succinate 50 mg 50 mg PO DAILY 09/30/22 09/30/22 Unknown History tablet,extended release 24 hr omeprazole 20 mg capsule,delayed 20 mg PO DAILY@0630 09/30/22 09/30/22 Unknown History release Exam Exam Date and Time: October 02, 2022 134 Height,Weight and Vital Signs: Height 5 ft 10 in Weight 81.647 kg Last Vital Signs Temp 97.6 F 10/02/22 10:39 Pulse 65 10/02/22 10:39 Resp 16 10/02/22 10:39 BP 145/87 H 10/02/22 10:39 Pulse Ox 99 10/02/22 10:39 O2 Del Method Room Air 10/02/22 10:39 Pertinent Lab Results Pertinent Lab Results: Laboratory Tests 09/30/22 09/30/22 09/30/22 00:08 00:08 14:21 WBC 4.2 L RBC 4.17 L Hgb 13.8 L Hct 41.5 L MCV 99.5 H MCH 33.1 H MCHC 33.3 RDW 13.4 Plt Count 162 D MPV 9.1 L Immature Gran % (Auto) 0.0 Neut % (Auto) 66.2 Lymph % (Auto) 25.4 [place] % (Auto) 4.5 Eos % (Auto) 2.9 Baso % (Auto) 1.0 Lymph # (Auto) 1.1 L [place] # (Auto) 0.2 Eos # (Auto) 0.1 Baso # (Auto) 0.0 Abs Immat Gran (auto) 0.00 Absolute Neuts (auto) 2.8 Absolute Nucleated RBC 0.000 Nucleated RBC % (auto) 0.0 ESR Sodium Potassium Chloride Carbon Dioxide Anion Gap BUN Creatinine Estim Creat Clear Calc Estimated GFR POC Glucose Random Glucose Lactic Acid Calcium C-Reactive Protein Vitamin B12 Folate Urine Color Yellow Urine Appearance Clear Urine pH 6.0 Ur Specific [place] <= 1.005 Urine Protein Negative Urine Glucose (UA) Negative Urine Ketones Negative Urine Blood Negative Urine Nitrite Negative Ur Leukocyte Esterase Negative Urine RBC 0-2 Urine WBC 0-5 Ur Squamous Epith Cells 0-2 Urine Bacteria None Seen Hyaline Casts 0-2 Urine Opiates Screen Not Detected Urine Fentanyl Screen Not Detected Ur Barbiturates Screen Not Detected Ur Phencyclidine Scrn Not Detected Ur Amphetamines Screen Not Detected U Benzodiazepines Scrn Not Detected Urine Cocaine Screen Not Detected U Marijuana (THC) Screen Not Detected Influenza Type A (PCR) Influenza Type B (PCR) RSV RNA Qual (PCR) SARS-CoV-2 RNA (RT-PCR) 09/30/22 09/30/22 09/30/22 14:21 14:21 14:21 WBC RBC Hgb Hct MCV MCH MCHC RDW Plt Count MPV Immature Gran % (Auto) Neut % (Auto) Lymph % (Auto) [place] % (Auto) Eos % (Auto) Baso % (Auto) Lymph # (Auto) [place] # (Auto) Eos # (Auto) Baso # (Auto) Abs Immat Gran (auto) Absolute Neuts (auto) Absolute Nucleated RBC Nucleated RBC % (auto) ESR 9 Sodium 143 Potassium 4.0 Chloride 108 Carbon Dioxide 25 Anion Gap 14 BUN 6 L Creatinine 0.56 Estim Creat Clear Calc 144.8 Estimated GFR > 60 POC Glucose Random Glucose 96 Lactic Acid 1.1 Calcium 8.7 C-Reactive Protein 0.11 Vitamin B12 279 Folate 11.0 Urine Color Urine Appearance Urine pH Ur Specific [place] Urine Protein Urine Glucose (UA) Urine Ketones Urine Blood Urine Nitrite Ur Leukocyte Esterase Urine RBC Urine WBC Ur Squamous Epith Cells Urine Bacteria Hyaline Casts Urine Opiates Screen Urine Fentanyl Screen Ur Barbiturates Screen Ur Phencyclidine Scrn Ur Amphetamines Screen U Benzodiazepines Scrn Urine Cocaine Screen U Marijuana (THC) Screen Influenza Type A (PCR) Influenza Type B (PCR) RSV RNA Qual (PCR) SARS-CoV-2 RNA (RT-PCR) 09/30/22 09/30/22 09/30/22 15:39 17:19 20:21 WBC RBC Hgb Hct MCV MCH MCHC RDW Plt Count MPV Immature Gran % (Auto) Neut % (Auto) Lymph % (Auto) [place] % (Auto) Eos % (Auto) Baso % (Auto) Lymph # (Auto) [place] # (Auto) Eos # (Auto) Baso # (Auto) Abs Immat Gran (auto) Absolute Neuts (auto) Absolute Nucleated RBC Nucleated RBC % (auto) ESR Sodium Potassium Chloride Carbon Dioxide Anion Gap BUN Creatinine Estim Creat Clear Calc Estimated GFR POC Glucose 81 211 H Random Glucose Lactic Acid Calcium C-Reactive Protein Vitamin B12 Folate Urine Color Urine Appearance Urine pH Ur Specific [place] Urine Protein Urine Glucose (UA) Urine Ketones Urine Blood Urine Nitrite Ur Leukocyte Esterase Urine RBC Urine WBC Ur Squamous Epith Cells Urine Bacteria Hyaline Casts Urine Opiates Screen Urine Fentanyl Screen Ur Barbiturates Screen Ur Phencyclidine Scrn Ur Amphetamines Screen U Benzodiazepines Scrn Urine Cocaine Screen U Marijuana (THC) Screen Influenza Type A (PCR) NEGATIVE Influenza Type B (PCR) NEGATIVE RSV RNA Qual (PCR) NEGATIVE SARS-CoV-2 RNA (RT-PCR) NEGATIVE 10/01/22 10/01/22 10/01/22 05:48 05:48 07:13 WBC 5.2 RBC 3.89 L Hgb 12.8 L Hct 39.0 L MCV 100.3 H MCH 32.9 MCHC 32.8 RDW 13.3 Plt Count 155 L MPV 9.9 Immature Gran % (Auto) 0.4 Neut % (Auto) 68.4 Lymph % (Auto) 20.3 [place] % (Auto) 5.9 Eos % (Auto) 4.2 H Baso % (Auto) 0.8 Lymph # (Auto) 1.1 L [place] # (Auto) 0.3 Eos # (Auto) 0.2 Baso # (Auto) 0.0 Abs Immat Gran (auto) 0.02 Absolute Neuts (auto) 3.6 Absolute Nucleated RBC 0.000 Nucleated RBC % (auto) 0.0 ESR Sodium 141 Potassium 4.0 Chloride 106 Carbon Dioxide 27 Anion Gap 12 BUN 10 Creatinine 0.60 Estim Creat Clear Calc 135.1 Estimated GFR > 60 POC Glucose 108 Random Glucose 98 Lactic Acid Calcium 8.6 C-Reactive Protein Vitamin B12 Folate Urine Color Urine Appearance Urine pH Ur Specific [place] Urine Protein Urine Glucose (UA) Urine Ketones Urine Blood Urine Nitrite Ur Leukocyte Esterase Urine RBC Urine WBC Ur Squamous Epith Cells Urine Bacteria Hyaline Casts Urine Opiates Screen Urine Fentanyl Screen Ur Barbiturates Screen Ur Phencyclidine Scrn Ur Amphetamines Screen U Benzodiazepines Scrn Urine Cocaine Screen U Marijuana (THC) Screen Influenza Type A (PCR) Influenza Type B (PCR) RSV RNA Qual (PCR) SARS-CoV-2 RNA (RT-PCR) 10/01/22 10/01/22 10/01/22 11:02 16:03 18:22 WBC RBC Hgb Hct MCV MCH MCHC RDW Plt Count MPV Immature Gran % (Auto) Neut % (Auto) Lymph % (Auto) [place] % (Auto) Eos % (Auto) Baso % (Auto) Lymph # (Auto) [place] # (Auto) Eos # (Auto) Baso # (Auto) Abs Immat Gran (auto) Absolute Neuts (auto) Absolute Nucleated RBC Nucleated RBC % (auto) ESR Sodium Potassium Chloride Carbon Dioxide Anion Gap BUN Creatinine Estim Creat Clear Calc Estimated GFR POC Glucose 184 H 160 H 174 H Random Glucose Lactic Acid Calcium C-Reactive Protein Vitamin B12 Folate Urine Color Urine Appearance Urine pH Ur Specific [place] Urine Protein Urine Glucose (UA) Urine Ketones Urine Blood Urine Nitrite Ur Leukocyte Esterase Urine RBC Urine WBC Ur Squamous Epith Cells Urine Bacteria Hyaline Casts Urine Opiates Screen Urine Fentanyl Screen Ur Barbiturates Screen Ur Phencyclidine Scrn Ur Amphetamines Screen U Benzodiazepines Scrn Urine Cocaine Screen U Marijuana (THC) Screen Influenza Type A (PCR) Influenza Type B (PCR) RSV RNA Qual (PCR) SARS-CoV-2 RNA (RT-PCR) 04/19/23 04/20/23 04/20/23 20:44 05:34 05:34 WBC 3.9 L RBC 3.70 L Hgb 12.3 L Hct 36.9 L MCV 99.7 H MCH 33.2 H MCHC 33.3 RDW 13.1 Plt Count 139 L MPV 10.1 Immature Gran % (Auto) 0.3 Neut % (Auto) 51.7 Lymph % (Auto) 31.1 [place] % (Auto) 8.2 Eos % (Auto) 7.7 H Baso % (Auto) 1.0 Lymph # (Auto) 1.2 [place] # (Auto) 0.3 Eos # (Auto) 0.3 Baso # (Auto) 0.0 Abs Immat Gran (auto) 0.01 Absolute Neuts (auto) 2.0 Absolute Nucleated RBC 0.000 Nucleated RBC % (auto) 0.0 ESR Sodium 138 Potassium 3.8 Chloride 104 Carbon Dioxide 26 Anion Gap 12 BUN 9 Creatinine 0.64 Estim Creat Clear Calc 126.7 Estimated GFR > 60 POC Glucose 121 H Random Glucose 123 H Lactic Acid Calcium 8.4 C-Reactive Protein Vitamin B12 Folate Urine Color Urine Appearance Urine pH Ur Specific [place] Urine Protein Urine Glucose (UA) Urine Ketones Urine Blood Urine Nitrite Ur Leukocyte Esterase Urine RBC Urine WBC Ur Squamous Epith Cells Urine Bacteria Hyaline Casts Urine Opiates Screen Urine Fentanyl Screen Ur Barbiturates Screen Ur Phencyclidine Scrn Ur Amphetamines Screen U Benzodiazepines Scrn Urine Cocaine Screen U Marijuana (THC) Screen Influenza Type A (PCR) Influenza Type B (PCR) RSV RNA Qual (PCR) SARS-CoV-2 RNA (RT-PCR) 10/02/22 10/02/22 07:27 10:43 WBC RBC Hgb Hct MCV MCH MCHC RDW Plt Count MPV Immature Gran % (Auto) Neut % (Auto) Lymph % (Auto) [place] % (Auto) Eos % (Auto) Baso % (Auto) Lymph # (Auto) [place] # (Auto) Eos # (Auto) Baso # (Auto) Abs Immat Gran (auto) Absolute Neuts (auto) Absolute Nucleated RBC Nucleated RBC % (auto) ESR Sodium Potassium Chloride Carbon Dioxide Anion Gap BUN Creatinine Estim Creat Clear Calc Estimated GFR POC Glucose 148 H 126 H Random Glucose Lactic Acid Calcium C-Reactive Protein Vitamin B12 Folate Urine Color Urine Appearance Urine pH Ur Specific [place] Urine Protein Urine Glucose (UA) Urine Ketones Urine Blood Urine Nitrite Ur Leukocyte Esterase Urine RBC Urine WBC Ur Squamous Epith Cells Urine Bacteria Hyaline Casts Urine Opiates Screen Urine Fentanyl Screen Ur Barbiturates Screen Ur Phencyclidine Scrn Ur Amphetamines Screen U Benzodiazepines Scrn Urine Cocaine Screen U Marijuana (THC) Screen Influenza Type A (PCR) Influenza Type B (PCR) RSV RNA Qual (PCR) SARS-CoV-2 RNA (RT-PCR) Airway Mallampati Class: II TM Dist: >3cm Neck ROM: Full Loose/Missing/Broken Teeth: Yes (many missing none loose) Heart: rrr Lungs: cta Assessment and Plan Assessment Anesthesia Assessment: Anesthesia Plan Discussed and Chart Reviewed Final Anesthetic Review Family History of Problems with Anesthesia: No History of Problems with Anesthesia: No NPO: Yes ASA Class: III Final Preanesthetic Review: No Changes in Pt Med Stat, Meds/Allgs Chart Reviewed, Consent Obtained/Reviewed and Anes Risks/Benef Reviewed Patient Risk: Low Procedure Risk: Low Anesthetic Plan Anesthetic Plan: GA Disposition: Standard PACU
[2022-10-02] MEDS: oxyCODONE HCl Immed Release 5 MG TABLET PO (14:35)
[2022-10-02 16:27] LABS: Glucose, Whole Blood 162 mg/dL (60-115)
[2022-10-02] MEDS: Insulin Lispro 100 UNIT/ML 3 ML VIAL SUBCUT ×2 (16:43→21:08)
[2022-10-02] MEDS: Omeprazole 20 MG CAPSULE.DR PO (17:12)
--- NOTE | 2022-10-02 18:35 | PC.NURSE ---
pt. returnd from surgery approx. 1.30pm , right hand dsg C/D/I, able to move his fingers, good sensation, warm to touch, right arm elevated on 2 pillows.
[2022-10-02] MEDS: Acetaminophen 325 MG TABLET 650 MG PO (20:26)
[2022-10-02 20:58] LABS: Glucose, Whole Blood 179 mg/dL (60-115)
[2022-10-03] VITALS (7 sets, daily range): BP systolic 133–164; BP diastolic 70–80; PULSE 66–76; RESP 14–18; TEMP 36.2–36.7; O2SAT 97–100
[2022-10-03] MEDS: Piperacillin Sodium/Tazobactam 3.375 GM in 0.9 % Sodium Chloride 50 ML IV ×2 (05:23→09:07)
[2022-10-03] MEDS: Heparin Sodium,Porcine 5,000 UNIT/ML VIAL 5000 UNIT SUBCUT ×2 (05:25→15:49)
[2022-10-03] MEDS: Omeprazole 20 MG CAPSULE.DR PO (05:59)
[2022-10-03 07:41] LABS: Glucose, Whole Blood 125 mg/dL (60-115)
--- NOTE | 2022-10-03 07:50 | PM.PNORT ---
Subjective Subjective Date of Service: 10/03/22 Interval history: POD1 s/p debridement right hand. Patient is resting in bed comfortably. No overnight events. Pain is managed. No additional complaints. Physical Exam Vital Signs: Vital Signs: Last Vital Signs Temp 97.2 F 10/03/22 07:16 Pulse 66 10/03/22 07:16 Resp 18 10/03/22 07:16 BP 143/70 H 10/03/22 07:16 Pulse Ox 98 10/03/22 07:16 O2 Del Method Room Air 10/03/22 07:16 BMI result Body Mass Index 25.8 Const: General: cooperative, healthy appearing and no acute distress Resp: Effort & Inspection: normal respiratory effort and able to speak in complete sentences Cardio: Rate: regular rate Peripheral pulses: Peripheral pulses 2+ throughout GI: Palpation (GI): Soft to palpation Skin: Lesions: no lesions Rashes: no rashes Extrem: Other: Right hand dorsal debridement site is c/d/i. Able to slightly flex and extend digits. No signs of flexor tenosynovitis. Sensation intact. Capillary refill is brisk. Procedures Date of Service Date of Service: 10/03/22 Progress Note: A&P Assessment and plan (1) Alcoholic intoxication: Status: Acute (2) Deep wound due to dog bite: Status: Acute (3) Infection of right hand due to bite: Status: Acute Assessment and Plan: Daily dressing changes - Nursing order placed for daily dressing changes -xeroform -gauze -coban Gentle ROM Wound care followup No additional orthopedic intervention needed at this time - wound care only (4) Alcohol use disorder: Status: Acute Time Spent With Patient Time: Total time managing care of this patient today ____ minutes. Quality Stroke Does the patient have a stroke diagnosis?: No VTE Prior VTE?: No VTE Risk Level:: Medical - moderate - high VTE Device Contraindication: Treatment Not Indicated VTE Drug Contraindication: N/A - Med Ordered
--- NOTE | 2022-10-03 08:10 | HO.POSTANES ---
Post Anesthesia Evaluation Post Anesthesia Evaluation Vital Signs: Vital Signs Temp Pulse Resp BP Pulse Ox O2 Del Method 10/03/22 07:16 97.2 F 66 18 143/70 H 98 Room Air 10/02/22 23:21 97.7 F 83 15 132/60 99 Room Air Anesthesia: General LMA Mental Status: Awake Pain Control: Satisfactory Nausea/Vomiting: None Hydration: Adequate Anesthesia-Related Issues: No Anes. Related Issues
[2022-10-03] MEDS: Metoprolol Succinate ER 50 MG TAB.ER.24H PO (09:05)
[2022-10-03] MEDS: amLODIPine Besylate 5 MG TABLET PO (09:05)
[2022-10-03] MEDS: PHENobarbitaL 15 MG TABLET PO ×2 (09:05→20:19)
[2022-10-03] MEDS: Folic Acid 1 MG TABLET PO (09:05)
[2022-10-03] MEDS: Atorvastatin Calcium 10 MG TABLET PO (09:05)
[2022-10-03] MEDS: 0.9 % Sodium Chloride Flush 3 ML SYRINGE IVFLUSH ×3 (09:07→20:21)
[2022-10-03] MEDS: Thiamine HCL 100 MG in 0.9 % Sodium Chloride 100 ML 202 MG IV (09:47)
[2022-10-03 11:42] LABS: Glucose, Whole Blood 152 mg/dL (60-115)
--- NOTE | 2022-10-03 12:09 | HO.PM.IMPN ---
Subjective Subjective Date of Service: 10/03/22 Interval History: seen and examined this morning follow-up for right hand wound having some pain in his right hand, but overall feeling well no fever, chills Review of Systems Review of Systems: Yes all other systems are reviewed and are negative Constitutional Constitutional: Denies chills and Denies fever(s) Cardiovascular Cardiovascular: Denies chest pain, Denies palpitations and Denies dyspnea Respiratory Respiratory: Denies cough and Denies dyspnea Gastrointestinal Gastrointestinal: Denies abdominal pain, Denies nausea and Denies vomiting Endocrine Endocrine: Denies palpitations Physical Exam Vital Signs: Vital Signs: Last Vital Signs Temp 97.8 F 10/03/22 11:42 Pulse 75 10/03/22 11:42 Resp 18 10/03/22 11:42 BP 133/74 10/03/22 11:42 Pulse Ox 98 10/03/22 11:57 O2 Del Method Room Air 10/03/22 11:57 BMI result Body Mass Index 25.8 Const: General: cooperative, comfortable, alert and awake Nutritional Appearance: average body habitus Orientation/consciousness: patient oriented x3 Resp: Effort & Inspection: normal respiratory effort and able to speak in complete sentences Auscultation: clear to auscultation bilaterally Cardio: Rate: regular rate Heart sounds: S1 normal heart sound present and S2 normal heart sound present GI: Inspection: No distended Palpation (GI): Soft to palpation and nontender Skin: Other: right hand wrapped in C/D/I dressing Neuro: General: patient oriented x3 and CN's II-XI intact bilaterally Extrem: General: Yes no pedal edema Objective Data Active Medications Acetaminophen (Acetaminophen 325 Mg Tablet) 650 mg PO Q6H PRN PRN Reason: Pain, Mild (Pain Scale 1-3) Last Admin: 10/02/22 20:26 Dose: 650 mg Documented By: HARJIT Amlodipine Besylate (Amlodipine Besylate 5 Mg Tablet) 5 mg PO DAILY COUNTS INCLUDE 234 BEDS AT THE [facility]; Protocol Last Admin: 10/03/22 09:05 Dose: 5 mg Documented By: FRANCISCA Atorvastatin Calcium (Atorvastatin Calcium 10 Mg Tablet) 10 mg PO DAILY COUNTS INCLUDE 234 BEDS AT THE [facility] Last Admin: 10/03/22 09:05 Dose: 10 mg Documented By: FRANCISCA Docusate Sodium (Docusate Sodium 100 Mg Capsule) 100 mg PO DAILY PRN PRN Reason: Constipation Fentanyl (Fentanyl Citrate/Pf 100 Mcg/2 Ml Vial) 25 mcg IVPUSH Q5M PRN; Protocol PRN Reason: Pain, Moderate (Pain Scale 4-6 Folic Acid (Folic Acid 1 Mg Tablet) 1 mg PO DAILY COUNTS INCLUDE 234 BEDS AT THE [facility] Last Admin: 10/03/22 09:05 Dose: 1 mg Documented By: FRANCISCA Glucose (Glucose Gel 15 Gm Gel..Gram.) 15 gm PO Q15M PRN; Protocol PRN Reason: per Hypoglycemia Standing Ord. Heparin Sodium (Porcine) (Heparin Sodium,Porcine 5,000 Unit/Ml Vial) 5,000 unit SUBCUT Q12H COUNTS INCLUDE 234 BEDS AT THE [facility] Last Admin: 10/03/22 05:25 Dose: 5,000 unit Documented By: HARJIT Piperacillin Sod/Tazobactam (Sod 3.375 gm/ Sodium Chloride) 50 mls @ 100 mls/hr IV Q6H COUNTS INCLUDE 234 BEDS AT THE [facility] Last Infusion: 10/03/22 09:48 Dose: 0 mls/hr Documented By: FRANCISCA Dextrose (D10) 250 mls @ 750 mls/hr IV Q15M PRN; Protocol PRN Reason: per Hypoglycemia Standing Ord. Insulin Human Lispro (Insulin Lispro 100 Unit/Ml 3 Ml Vial) 0 unit SUBCUT QIDACHS COUNTS INCLUDE 234 BEDS AT THE [facility]; Protocol Last Admin: 10/03/22 08:47 Dose: Not Given Documented By: FRANCISCA Non-Admin Reason: No Insulin Coverage Metoprolol Succinate (Metoprolol Succinate Er 50 Mg Tab.Er.24h) 50 mg PO DAILY COUNTS INCLUDE 234 BEDS AT THE [facility]; Protocol Last Admin: 10/03/22 09:05 Dose: 50 mg Documented By: FRANCISCA Omeprazole (Omeprazole 20 Mg Capsule.Dr) 20 mg PO DAILY@0630 COUNTS INCLUDE 234 BEDS AT THE [facility] Last Admin: 10/03/22 05:59 Dose: 20 mg Documented By: HARJIT Ondansetron HCl (Ondansetron Hcl 4 Mg/2 Ml Vial) 4 mg IVPUSH Q8H PRN PRN Reason: Nausea and Vomiting Ondansetron HCl (Ondansetron Hcl 4 Mg/2 Ml Vial) 4 mg IVPUSH ONCE PRN PRN Reason: Nausea and Vomiting Pharmacy Consult (Consult Rx Etoh Phenob Im/Po) 1 each MISCELLANE ONCE PRN; Protocol PRN Reason: Consult order Phenobarbital (Phenobarbital 15 Mg Tablet) 15 mg PO BID COUNTS INCLUDE 234 BEDS AT THE [facility]; Protocol Stop: 10/04/22 21:01 Last Admin: 10/03/22 09:05 Dose: 15 mg Documented By: FRANCISCA Phenobarbital (Phenobarbital 15 Mg Tablet) 15 mg PO DAILY COUNTS INCLUDE 234 BEDS AT THE [facility]; Protocol Stop: 10/06/22 09:01 Sodium Chloride (0.9 % Sodium Chloride Flush 3 Ml Syringe) 3 ml IVFLUSH QSHIFT COUNTS INCLUDE 234 BEDS AT THE [facility] Last Admin: 10/03/22 09:07 Dose: 3 ml Documented By: FRANCISCA Labs 10/02/22 05:34 10/02/22 05:34 Labs: Laboratory Results - last 24 hr 10/02/22 10/02/22 10/03/22 16:23 20:51 07:14 POC Glucose 162 H 179 H 125 H 10/03/22 11:30 POC Glucose 152 H Microbiology Microbiology Results: Microbiology 10/02/22 Unknown Gram Stain - Final Hand Right Routine Culture - Preliminary Culture in progress. 09/30/22 14:28 Blood Culture - Preliminary Blood - Venous No growth after 48 hours. 09/30/22 14:21 Blood Culture - Preliminary Blood - Venous No growth after 48 hours. Assessment and Plan (1) Deep wound due to dog bite: Status: Acute (2) Alcohol use disorder: Status: Acute Plan 61-year-old male with history of [id number] type 2 diabetes, hypertension, hyperlipidemia, and alcohol abuse presented to the ED admitted for infected dog bite and management of alcohol withdrawal. #Infected dog bite with cellulitis right hand No leukocytosis. ESR/CRP WNL. afebrile. Xray without acute osseous abnormality Bit by unvaccinated dog about 2 months ago. Failed outpt abx with augmentin then ceftin/doxycycline continue zosyn 3.375g q6h (started 09/30) s/p debridement 10/02, ortho following blood cultures negative to date, wound cultures pending -daily dressing changes, wound care #Alcohol use disorder with acute intoxication Acutely intoxicated on arrival, at risk for severe withdrawal CIWA remains low -continue Phenobarbatol protocol -continue thiamine, folic acid supplementation -addiction medicine follow up # chronic macrocytic anemia H/ H stable, above transfusion threshold #Noninsulin dependent type 2 diabetes continue SSI, POCs, ADA diet -hold metformin #HTN BP under adequate control -continue home meds #HLD -continue statin #GERD -continue ppi DVT prophylaxis- heparin Full code attending-Dr. Glass Pt requires ongoing inpt stay for IV abx, wound care and management of acute alcohol withdrawal Time Spent With Patient Time: Total time managing care of this patient today ____ minutes. Quality Stroke Does the patient have a stroke diagnosis?: No VTE Prior VTE?: No VTE Risk Level:: Medical - moderate - high VTE Device Contraindication: Treatment Not Indicated VTE Drug Contraindication: N/A - Med Ordered
[2022-10-03] MEDS: Insulin Lispro 100 UNIT/ML 3 ML VIAL SUBCUT ×2 (12:33→16:55)
--- NOTE | 2022-10-03 13:37 | MHC.RECOVRN ---
This race and sports book writer met w/ patient, patient was alert, sitting up in bed. Patient is familiar to this race and sports book writer, t/w has met with Josse many times in the ED. T/W reviewed patients goals related to ETOH at d/c, discussed if patient was interested in further treatment. Reviewed patient not eligible for detox, would patient be interested in CSS, reviewed CSS structure, daily therapeutic groups etc. Patient ambivalent about CSS level of care. Patient at first reported had not drank in a long time, reviewed that patient was treated for withdrawal as 09/29, pt reported drinking 6 beers several times per week. Patient confused at times, trailing off. CSS admissions do not occur on the weekend. CSS referral would need to be placed when medically cleared. Unclear if patient candidate for CSS due to dog bite injury aftercare and patients level of confusion. T/W reviewed half-way options i.e [facility], [facility], patient expressed possible interest in half-way as patient is unstably housed. CM aware.
--- NOTE | 2022-10-03 14:32 | MHC.CM.PN ---
PATIENT AWARE THAT HE WILL NEED DAILY DRESSING CHANGES NO [facility] REFERRALS TO BE PLACED IF PATIENT DOES NOT HAVE A RESIDENCE. ONE OPTIO COULD BE THAT PATIENT IS SUPPLIED WITH DRESSING CHANGE NEEDS
[2022-10-03] MEDS: levoFLOXacin 750 MG TABLET PO (15:49)
--- NOTE | 2022-10-03 16:34 | W.PM.IDCN ---
History of Present Illness Data of Consult Service Date: 10/03/22 Requesting physician: Maria Millan Primary Care Provider: None Physician HPI Reason for consult: right hand infection He presents with right hand pain. He had dog bite one month ago and received rabies prophylaxis and tetanus shot per him. He has alcohol use disorder and is homeless. He has received Augmentin,Doxycycline and cephalexin with no improvement hand per him. Review of Systems Review of Systems: Yes all other systems are reviewed and are negative PMFSH Past Medical History Medical History Alcohol use disorder Diabetes GERD (gastroesophageal reflux disease) HTN (hypertension) Surgical History Surgical History History of colonoscopy History of endoscopy Hx of pelvic surgery Social History Social History Household Members: None Housing: Homeless Alcohol intake: current Alcohol intake frequency: a few times a week Alcohol type: beer Patient Tobacco Use Status: Former Tobacco user Quit Date: 1999 Tobacco use type: Cigarette Years Smoked: 3 Second Hand Smoke Exposure: No service: No Current occupational status: unemployed 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 Meds Allergies Allergy/AdvReac Type Severity Reaction Status Date / Time bee pollen [BEE STINGS] Allergy Intermediate SWELLING Verified 10/02/22 10:39 polyethylene glycol Allergy Unknown Swelling Verified 10/02/22 10:39 [Golytely] polyethylene glycol 3350 Allergy Unknown Unknown Verified 10/02/22 10:39 [Golytely] potassium chloride [Golytely] Allergy Unknown Unknown Verified 10/02/22 10:39 sodium [Golytely] Allergy Unknown Unknown Verified 10/02/22 10:39 sodium bicarbonate [Golytely] Allergy Unknown Unknown Verified 10/02/22 10:39 sodium chloride [Golytely] Allergy Unknown Unknown Verified 10/02/22 10:39 sodium sulfate [Golytely] Allergy Unknown Unknown Verified 10/02/22 10:39 Active Medications: Current Medications Acetaminophen (Acetaminophen 325 Mg Tablet) 650 mg PO Q6H PRN PRN Reason: Pain, Mild (Pain Scale 1-3) Last Admin: 10/02/22 20:26 Dose: 650 mg Amlodipine Besylate (Amlodipine Besylate 5 Mg Tablet) 5 mg PO DAILY [facility]; Protocol Last Admin: 10/03/22 09:05 Dose: 5 mg Atorvastatin Calcium (Atorvastatin Calcium 10 Mg Tablet) 10 mg PO DAILY [facility] Last Admin: 10/03/22 09:05 Dose: 10 mg Docusate Sodium (Docusate Sodium 100 Mg Capsule) 100 mg PO DAILY PRN PRN Reason: Constipation Fentanyl (Fentanyl Citrate/Pf 100 Mcg/2 Ml Vial) 25 mcg IVPUSH Q5M PRN; Protocol PRN Reason: Pain, Moderate (Pain Scale 4-6 Folic Acid (Folic Acid 1 Mg Tablet) 1 mg PO DAILY [facility] Last Admin: 10/03/22 09:05 Dose: 1 mg Glucose (Glucose Gel 15 Gm Gel..Gram.) 15 gm PO Q15M PRN; Protocol PRN Reason: per Hypoglycemia Standing Ord. Heparin Sodium (Porcine) (Heparin Sodium,Porcine 5,000 Unit/Ml Vial) 5,000 unit SUBCUT Q12H [facility] Last Admin: 10/03/22 15:49 Dose: 5,000 unit Dextrose (D10) 250 mls @ 750 mls/hr IV Q15M PRN; Protocol PRN Reason: per Hypoglycemia Standing Ord. Insulin Human Lispro (Insulin Lispro 100 Unit/Ml 3 Ml Vial) 0 unit SUBCUT QIDACHS [facility]; Protocol Last Admin: 10/03/22 12:33 Dose: 2 unit Levofloxacin (Levofloxacin 750 Mg Tablet) 750 mg PO Q24H [facility] Last Admin: 10/03/22 15:49 Dose: 750 mg Metoprolol Succinate (Metoprolol Succinate Er 50 Mg Tab.Er.24h) 50 mg PO DAILY [facility]; Protocol Last Admin: 10/03/22 09:05 Dose: 50 mg Metronidazole (Metronidazole 500 Mg Tablet) 500 mg PO Q12H [facility] Omeprazole (Omeprazole 20 Mg Capsule.Dr) 20 mg PO DAILY@0630 [facility] Last Admin: 10/03/22 05:59 Dose: 20 mg Ondansetron HCl (Ondansetron Hcl 4 Mg/2 Ml Vial) 4 mg IVPUSH ONCE PRN PRN Reason: Nausea and Vomiting Pharmacy Consult (Consult Rx Etoh Phenob Im/Po) 1 each MISCELLANE ONCE PRN; Protocol PRN Reason: Consult order Phenobarbital (Phenobarbital 15 Mg Tablet) 15 mg PO BID [facility]; Protocol Stop: 10/04/22 21:01 Last Admin: 10/03/22 09:05 Dose: 15 mg Phenobarbital (Phenobarbital 15 Mg Tablet) 15 mg PO DAILY [facility]; Protocol Stop: 10/06/22 09:01 Sodium Chloride (0.9 % Sodium Chloride Flush 3 Ml Syringe) 3 ml IVFLUSH QSHIFT [facility] Last Admin: 10/03/22 15:50 Dose: 3 ml Home Medications Medication Instructions Recorded Confirmed Last Taken Type amlodipine 5 mg tablet 5 mg PO DAILY 09/30/22 09/30/22 Unknown History atorvastatin 10 mg tablet 10 mg PO DAILY 09/30/22 09/30/22 Unknown History metformin 500 mg tablet 500 mg PO BID 09/30/22 09/30/22 Unknown History metoprolol succinate 50 mg 50 mg PO DAILY 09/30/22 09/30/22 Unknown History tablet,extended release 24 hr omeprazole 20 mg capsule,delayed 20 mg PO DAILY@0630 09/30/22 09/30/22 Unknown History release Physical Exam Vital Signs: Vital Signs: Last Vital Signs Temp 97.8 F 10/03/22 15:59 Pulse 70 10/03/22 15:59 Resp 18 10/03/22 15:59 BP 145/73 H 10/03/22 15:59 Pulse Ox 97 10/03/22 15:59 O2 Del Method Room Air 10/03/22 15:59 BMI result Body Mass Index 25.8 Const: General: cooperative HEENT: Head: Yes normal to inspection Face and sinus: Yes normal facial exam Mouth: Normal oral and palatal mucosa present Teeth and gingiva: dentition normal Eyes: General: appearance normal, both eyes and all related structures Pupils: Equal, round and reactive pupils present Resp: Effort & Inspection: normal respiratory effort Cardio: Rate: regular rate Rhythm: regular rhythm GI: Palpation (GI): Soft to palpation and nontender : General: Yes no CVA tenderness Back/Spine/Pelvis: Back: no CVA tenderness Skin: General skin exam: no rashes or lesions noted Neuro: General: moves all extremities Cranial nerves: Yes Equal, round and reactive pupils present Extrem: Other: right dorsal ulnar surface wound ,wrapped Psych: Appearance: grossly normal Results Labs 10/02/22 05:34 10/02/22 05:34 Microbiology Microbiology Results: Microbiology 10/02/22 Unknown Hand Right Gram Stain - Final 10/02/22 Unknown Hand Right Routine Culture - Preliminary Culture in progress. 09/30/22 14:28 Blood - Venous Blood Culture - Preliminary No growth after 48 hours. 09/30/22 14:21 Blood - Venous Blood Culture - Preliminary No growth after 48 hours. Assessment and Plan (1) Deep wound due to dog bite: Status: Acute (2) Infection of right hand due to bite: Status: Acute Area is improving (3) Alcohol use disorder: Status: Acute Plan May switch antibiotics to po Levaquin 750 mg daily and flagyl 500 mg bid for 10 days outpatient (equal bioavailability po and IV).. Time Spent With Patient Time: Total time managing care of this patient today ____ minutes.
[2022-10-03 16:37] LABS: Glucose, Whole Blood 151 mg/dL (60-115)
[2022-10-03] MEDS: metroNIDAZOLE 500 MG TABLET PO (16:55)
[2022-10-03 20:50] LABS: Glucose, Whole Blood 103 mg/dL (60-115)
[2022-10-03] MEDS: Acetaminophen 325 MG TABLET 650 MG PO (22:16)
[2022-10-04] MEDS: Acetaminophen 325 MG TABLET 650 MG PO ×3 (02:55→23:47)
[2022-10-04 03:31] VITALS: BP 145/70; PULSE 64; RESP 16; TEMP 36.7; O2SAT 97
[2022-10-04] MEDS: oxyCODONE HCl Immed Release 5 MG TABLET PO (03:40)
[2022-10-04] MEDS: Heparin Sodium,Porcine 5,000 UNIT/ML VIAL 5000 UNIT SUBCUT ×2 (03:40→15:30)
[2022-10-04] MEDS: Omeprazole 20 MG CAPSULE.DR PO (05:30)
[2022-10-04] MEDS: metroNIDAZOLE 500 MG TABLET PO ×2 (05:30→17:34)
--- NOTE | 2022-10-04 06:39 | PC.NURSE ---
Pt woke up with right hand pain 01/22 at 0240, not due for prn Tylenol yet, Dr. Arango was notified, Dr. Arango, okayed tylenol to be given early, also ordered Oxycodone 5 mg po once, Tylenol po given, with some relief, Oxycodone 5 mg po given with good effect.
[2022-10-04 07:35] VITALS: BP 151/77; PULSE 68; RESP 16; TEMP 36.5; O2SAT 98
[2022-10-04 07:40] LABS: Glucose, Whole Blood 105 mg/dL (60-115)
[2022-10-04] MEDS: Folic Acid 1 MG TABLET PO (08:07)
[2022-10-04] MEDS: Atorvastatin Calcium 10 MG TABLET PO (08:07)
[2022-10-04] MEDS: amLODIPine Besylate 5 MG TABLET PO (08:07)
[2022-10-04] MEDS: Metoprolol Succinate ER 50 MG TAB.ER.24H PO (08:08)
[2022-10-04] MEDS: PHENobarbitaL 15 MG TABLET PO ×2 (08:08→20:24)
[2022-10-04] MEDS: 0.9 % Sodium Chloride Flush 3 ML SYRINGE IVFLUSH ×3 (08:09→20:45)
[2022-10-04 11:08] LABS: Glucose, Whole Blood 99 mg/dL (60-115)
[2022-10-04 11:34] VITALS: BP 142/82; PULSE 80; RESP 18; TEMP 36.4; O2SAT 98
--- NOTE | 2022-10-04 12:11 | HO.PM.IMPN ---
Subjective Subjective Date of Service: 10/04/22 Interval History: seen and examined this morning Follow-up for right hand wound Having some hand discomfort Review of Systems Review of Systems: Yes all other systems are reviewed and are negative Constitutional Constitutional: Denies chills and Denies fever(s) Cardiovascular Cardiovascular: Denies chest pain and Denies palpitations Gastrointestinal Gastrointestinal: Denies abdominal pain Endocrine Endocrine: Denies palpitations Physical Exam Vital Signs: Vital Signs: Last Vital Signs Temp 97.6 F 10/04/22 11:34 Pulse 80 10/04/22 11:34 Resp 18 10/04/22 11:34 BP 142/82 H 10/04/22 11:34 Pulse Ox 98 10/04/22 11:34 O2 Del Method Room Air 10/04/22 11:34 BMI result Body Mass Index 25.8 Const: General: cooperative, comfortable, alert and awake Nutritional Appearance: average body habitus Orientation/consciousness: patient oriented x3 Resp: Effort & Inspection: normal respiratory effort and able to speak in complete sentences Auscultation: clear to auscultation bilaterally Cardio: Rate: regular rate Heart sounds: S1 normal heart sound present and S2 normal heart sound present GI: Inspection: No distended Palpation (GI): Soft to palpation and nontender Skin: Other: right hand wrapped in C/D/I dressing Neuro: General: patient oriented x3 and CN's II-XI intact bilaterally Extrem: General: Yes no pedal edema Objective Data Active Medications Acetaminophen (Acetaminophen 325 Mg Tablet) 650 mg PO Q6H PRN PRN Reason: Pain, Mild (Pain Scale 1-3) Last Admin: 10/04/22 02:55 Dose: 650 mg Documented By: RAGHU Amlodipine Besylate (Amlodipine Besylate 5 Mg Tablet) 5 mg PO DAILY [facility]; Protocol Last Admin: 10/04/22 08:07 Dose: 5 mg Documented By: LORNE Atorvastatin Calcium (Atorvastatin Calcium 10 Mg Tablet) 10 mg PO DAILY [facility] Last Admin: 10/04/22 08:07 Dose: 10 mg Documented By: LORNE Docusate Sodium (Docusate Sodium 100 Mg Capsule) 100 mg PO DAILY PRN PRN Reason: Constipation Fentanyl (Fentanyl Citrate/Pf 100 Mcg/2 Ml Vial) 25 mcg IVPUSH Q5M PRN; Protocol PRN Reason: Pain, Moderate (Pain Scale 4-6 Folic Acid (Folic Acid 1 Mg Tablet) 1 mg PO DAILY [facility] Last Admin: 10/04/22 08:07 Dose: 1 mg Documented By: LORNE Glucose (Glucose Gel 15 Gm Gel..Gram.) 15 gm PO Q15M PRN; Protocol PRN Reason: per Hypoglycemia Standing Ord. Heparin Sodium (Porcine) (Heparin Sodium,Porcine 5,000 Unit/Ml Vial) 5,000 unit SUBCUT Q12H [facility] Last Admin: 10/04/22 03:40 Dose: 5,000 unit Documented By: RAGHU Dextrose (D10) 250 mls @ 750 mls/hr IV Q15M PRN; Protocol PRN Reason: per Hypoglycemia Standing Ord. Insulin Human Lispro (Insulin Lispro 100 Unit/Ml 3 Ml Vial) 0 unit SUBCUT QIDACHS [facility]; Protocol Last Admin: 10/04/22 11:38 Dose: Not Given Documented By: LORNE Non-Admin Reason: No Insulin Coverage Levofloxacin (Levofloxacin 750 Mg Tablet) 750 mg PO Q24H [facility] Last Admin: 10/03/22 15:49 Dose: 750 mg Documented By: FRANCISCA Metoprolol Succinate (Metoprolol Succinate Er 50 Mg Tab.Er.24h) 50 mg PO DAILY [facility]; Protocol Last Admin: 10/04/22 08:08 Dose: 50 mg Documented By: LORNE Metronidazole (Metronidazole 500 Mg Tablet) 500 mg PO Q12H [facility] Last Admin: 10/04/22 05:30 Dose: 500 mg Documented By: RAGHU Omeprazole (Omeprazole 20 Mg Capsule.) 20 mg PO DAILY@0630 [facility] Last Admin: 10/04/22 05:30 Dose: 20 mg Documented By: RAGHU Ondansetron HCl (Ondansetron Hcl 4 Mg/2 Ml Vial) 4 mg IVPUSH ONCE PRN PRN Reason: Nausea and Vomiting Pharmacy Consult (Consult Rx Etoh Phenob Im/Po) 1 each MISCELLANE ONCE PRN; Protocol PRN Reason: Consult order Phenobarbital (Phenobarbital 15 Mg Tablet) 15 mg PO BID [facility]; Protocol Stop: 10/04/22 21:01 Last Admin: 10/04/22 08:08 Dose: 15 mg Documented By: LORNE Phenobarbital (Phenobarbital 15 Mg Tablet) 15 mg PO DAILY [facility]; Protocol Stop: 10/06/22 09:01 Sodium Chloride (0.9 % Sodium Chloride Flush 3 Ml Syringe) 3 ml IVFLUSH QSHIFT [facility] Last Admin: 10/04/22 08:09 Dose: 3 ml Documented By: LORNE Labs 10/02/22 05:34 10/02/22 05:34 Labs: Laboratory Results - last 24 hr 10/03/22 10/03/22 10/04/22 16:34 20:47 07:33 POC Glucose 151 H 103 105 10/04/22 11:02 POC Glucose 99 Assessment and Plan (1) Deep wound due to dog bite: Status: Acute Plan 61-year-old male with history of [id number] type 2 diabetes, hypertension, hyperlipidemia, and alcohol abuse presented to the ED admitted for infected dog bite and management of alcohol withdrawal. #Infected dog bite with cellulitis right hand No leukocytosis. ESR/CRP WNL. afebrile. Xray without acute osseous abnormality Bit by unvaccinated dog about 2 months ago. Failed outpt abx with augmentin then ceftin/doxycycline s/p debridement 10/02, ortho following blood cultures negative to date, wound cultures pending -daily dressing changes, wound care -initially treated with Zosyn (started 09/30)- will transition to levofloxacin and Flagyl per ID recommendation for total 10 days #Alcohol use disorder with acute intoxication Acutely intoxicated on arrival, at risk for severe withdrawal CIWA remains low -continue Phenobarbatol protocol -continue thiamine, folic acid supplementation -addiction medicine follow up # chronic macrocytic anemia H/ H stable, above transfusion threshold #Noninsulin dependent type 2 diabetes continue SSI, POCs, ADA diet -hold metformin #HTN BP under adequate control -continue home meds #HLD -continue statin #GERD -continue ppi DVT prophylaxis- heparin Full code attending-Dr. bahena Pt requires ongoing inpt stay for IV abx, wound care and management of acute alcohol withdrawal Time Spent With Patient Time: Total time managing care of this patient today ____ minutes. Quality Stroke Does the patient have a stroke diagnosis?: No VTE Prior VTE?: No VTE Risk Level:: Medical - moderate - high VTE Device Contraindication: Treatment Not Indicated VTE Drug Contraindication: N/A - Med Ordered
--- NOTE | 2022-10-04 12:25 | MHC.RECOVSUP ---
T/W met with pt in 368 to review CSS. Pt was provided a sheet of CSS facilities with phone numbers and addresses to contact from home as we are not able to get him into CSS over the weekend. Pt was reminded of shelters he reviewed with Em and to utilize them until he can get into CSS.
[2022-10-04] MEDS: levoFLOXacin 750 MG TABLET PO (15:30)
[2022-10-04 16:00] VITALS: BP 140/78; PULSE 82; RESP 18; TEMP 36.4; O2SAT 98
[2022-10-04 16:17] LABS: Glucose, Whole Blood 128 mg/dL (60-115)
[2022-10-04 20:00] VITALS: BP 152/81; PULSE 81; RESP 18; TEMP 37; O2SAT 97
[2022-10-04 20:24] LABS: Glucose, Whole Blood 142 mg/dL (60-115)
[2022-10-05 03:32] VITALS: BP 112/55; PULSE 92; RESP 16; TEMP 36.4; O2SAT 97
[2022-10-05] MEDS: Heparin Sodium,Porcine 5,000 UNIT/ML VIAL 5000 UNIT SUBCUT ×2 (04:15→15:51)
[2022-10-05] MEDS: metroNIDAZOLE 500 MG TABLET PO ×2 (05:18→17:06)
[2022-10-05] MEDS: Omeprazole 20 MG CAPSULE.DR PO (05:19)
[2022-10-05 07:30] LABS: Glucose, Whole Blood 185 mg/dL (60-115)
[2022-10-05 07:41] VITALS: BP 125/74; PULSE 66; RESP 16; TEMP 36.4; O2SAT 96
[2022-10-05] MEDS: PHENobarbitaL 15 MG TABLET PO (07:56)
[2022-10-05] MEDS: Atorvastatin Calcium 10 MG TABLET PO (07:57)
[2022-10-05] MEDS: Metoprolol Succinate ER 50 MG TAB.ER.24H PO (07:57)
[2022-10-05] MEDS: amLODIPine Besylate 5 MG TABLET PO (07:57)
[2022-10-05] MEDS: Folic Acid 1 MG TABLET PO (07:57)
[2022-10-05] MEDS: Insulin Lispro 100 UNIT/ML 3 ML VIAL SUBCUT ×2 (07:58→17:06)
[2022-10-05] MEDS: 0.9 % Sodium Chloride Flush 3 ML SYRINGE IVFLUSH ×3 (07:59→20:33)
--- NOTE | 2022-10-05 09:15 | P.DS_ITS ---
DS: Providers Provider Date of Service: 10/05/22 <REBECCA Holbrook - Last Filed: 10/08/22 17:46> 10/07/22 <Ivana Rider NP - Last Filed: 10/07/22 09:58> Date of admission: 09/30/22 14:51 <REBECCA Holbrook - Last Filed: 10/08/22 17:46> Date of discharge: 10/05/22 <REBECCA Holbrook - Last Filed: 10/08/22 17:46> Primary care physician: None Physician <REBECCA Holbrook - Last Filed: 10/08/22 17:46> Consults: 09/30/22 15:24 Consult to Orthopedics Routine Consulting Provider: Kirsten Vargas Reason for consultation: infected dog bite hand 10/03/22 07:18 Consult to Wound Care Stat Consulting Provider: [facility] Wound Care Management Reason for consultation: s/p hand debridement 10/03/22 12:12 Consult to Infectious Diseases Routine Consulting Provider: [facility] Infectious Disease Reason for consultation: dogbite, failed multiple abx <REBECCA Holbrook - Last Filed: 10/08/22 17:46> Attending physician on discharge: Torres Queen <REBECCA Holbrook - Last Filed: 10/08/22 17:46> Discharging clinician: Maria Millan <REBECCA Holbrook - Last Filed: 10/08/22 17:46> DS: Diagnosis Discharge Diagnosis (1) Deep wound due to dog bite: Status: Acute <REBECCA Holbrook - Last Filed: 10/08/22 17:46> (2) Alcoholic intoxication: Status: Acute <REBECCA Holbrook - Last Filed: 10/08/22 17:46> DS: Summary Hospital Course Hospital Course: From H&P on day of admission 61-year-old male with history of pli-preuels-glpherbam type 2 diabetes, hypertension, hyperlipidemia, and alcohol abuse presented to the ED early this morning after being found intoxicated asleep outside of a grocery store by EMS.? The patient states that he drinks about 6 beers most days and denies any history of alcohol withdrawal or alcohol withdrawal seizure.? He has been seen multiple times in our ED for alcohol intoxication and has never desire detox.? He also has a dog bite to the medial aspect of the right hand. He was bit by an unvaccinated dog about 2 months ago and has been on augmentin and then ceftin and doxycycline but the wound has not healed. Reports only serous drainage, no purulent drainage. Reports constant 7- 8/10 pain. No fevers, chills. He did receive one postexposure rabies prophylaxis at [facility] on 09/16, but did not return for follow up as scheduled on 09/19, 09/26. His only other complaint is nasal congestion, but denies any other URI symptoms. No known sick contacts. On arrival VSS, no leukocytosis. Renal function and electrolytes normal. ESR 9, CRP 0.11. UA unremarkable. Urine tox screen negative. ED discussed case with hand surgery who is recommending admission to medicine for IV abx and surgical debridement . 61-year-old male with history of eau-wgqdmoq-wsvepxxpc type 2 diabetes, hypertension, hyperlipidemia, and alcohol abuse presented to the ED admitted for infected dog bite and management of alcohol withdrawal. Infected dog bite with cellulitis right hand. Bit by unvaccinated dog about 2 months ago. Failed outpt abx with augmentin then ceftin/doxycycline. No leukocytosis. ESR/CRP WNL. afebrile. Xray without acute osseous abnormality. Patient was evaluated by Orthopedic surgery and underwent debridement 10/02. Blood cultures negative to date, wound cultures grew Serratia marcescens. he was originally treated with IV Zosyn and was transitioned to levofloxacin and Flagyl per ID recommendation. He will be discharged to complete 10 day course of oral antibiotics. Recommend daily dressing changes (supplies and education provided) and outpatient follow-up with wound care. Alcohol use disorder with acute intoxication. Acutely intoxicated on arrival, at risk for severe withdrawal. Treated with phenobarbital protocol and supplemented with thiamine and folic acid. He was seen in consultation by addiction medicine and resources given. <REBECCA Holbrook - Last Filed: 10/08/22 17:46> Time Spent with Patient Time attestation: Total time managing care of this patient today ____ minutes. <REBECCA Holbrook - Last Filed: 10/08/22 17:46> Discharge coordination time: Greater than 30 minutes <REBECCA Holbrook - Last Filed: 10/08/22 17:46> Quality: Safe Use of Opioids Does Pt have an Active Cancer Diagnosis on the Problem List?: No <REBECCA Holbrook - Last Filed: 10/08/22 17:46> Quality: Stroke Does the patient have a stroke diagnosis?: No <REBECCA Holbrook - Last Filed: 10/08/22 17:46> Physical Exam Vital Signs: Vital Signs: Last Vital Signs Temp 97.5 F 10/05/22 07:41 Pulse 66 10/05/22 07:41 Resp 16 10/05/22 07:41 BP 125/74 10/05/22 07:41 Pulse Ox 96 10/05/22 07:41 O2 Del Method Room Air 10/05/22 07:41 BMI result Body Mass Index 25.8 <REBECCA Holbrook Last Filed: 10/08/22 17:46> Appearing in no acute distress head is normocephalic atraumatic eyes pupils are PERRLA sclera is anicteric mouth throat mucous membranes are intact and moist neck is supple no lymphadenopathy, no JVD noted lung sounds are clear to auscultation heart regular rate rhythm, clear S1, S2 positive bowel sounds, abdomen is soft, nontender neuro patient is alert x3, no focal deficits right hand with pink granulating tissue, gauze and to wrap <Ivana Rider NP - Last Filed: 10/07/22 09:58> Const: General: cooperative, comfortable, alert and awake <REBECCA Holbrook - Last Filed: 10/08/22 17:46> Nutritional Appearance: average body habitus <REBECCA Holbrook Last Filed: 10/08/22 17:46> Orientation/consciousness: patient oriented x3 <REBECCA Holbrook - Last Filed: 10/08/22 17:46> Resp: Effort & Inspection: normal respiratory effort and able to speak in complete sentences <REBECCA Holbrook Last Filed: 10/08/22 17:46> Auscultation: clear to auscultation bilaterally <REBECCA Holbrook - Last Filed: 10/08/22 17:46> Cardio: Rate: regular rate <REBECCA Holbrook - Last Filed: 10/08/22 17:46> Heart sounds: S1 normal heart sound present and S2 normal heart sound present <REBECCA Holbrook - Last Filed: 10/08/22 17:46> GI: Inspection: No distended <REBECCA Holbrook - Last Filed: 10/08/22 17:46> Palpation (GI): Soft to palpation and nontender <REBECCA Holbrook - Last Filed: 10/08/22 17:46> Skin: Other: right hand wrapped in C/D/I dressing vitiligo hands, face <REBECCA Holbrook - Last Filed: 10/08/22 17:46> Neuro: General: patient oriented x3 and CN's II-XI intact bilaterally <REBECCA Holbrook - Last Filed: 10/08/22 17:46> Extrem: General: Yes no pedal edema <REBECCA Holbrook - Last Filed: 10/08/22 17:46> DS: Data Data Completed and Pending Labs on day of discharge: Laboratory Results - last 24 hr 10/04/22 10/04/22 10/04/22 11:02 16:08 20:13 POC Glucose 99 128 H 142 H 10/05/22 07:27 POC Glucose 185 H Preliminary micro results at discharge 09/30/22 14:28 Blood Culture - Preliminary Blood - Venous No growth after 48 hours. 09/30/22 14:21 Blood Culture - Preliminary Blood - Venous No growth after 48 hours. <REBECCA Holbrook - Last Filed: 10/08/22 17:46> Discharge Plan Discharge Anticipated Discharge Date/Time: 10/07/22 09:51 <REBECCA Holbrook - Last Filed: 10/08/22 17:46> Patient Disposition: Home, Self-Care <REBECCA Holbrook - Last Filed: 10/08/22 17:46> Discharge Diagnosis: Right hand infection due to dog bite <REBECCA Holbrook - Last Filed: 10/08/22 17:46> Right hand infection due to dog bite <Ivana Rider NP - Last Filed: 10/07/22 09:58> Referrals: Samuel Saldana MD [Primary Care Provider[facility] <REBECCA Holbrook - Last Filed: 10/08/22 17:46> Discharge Medications: New levofloxacin 750 mg Tablet 750 mg PO Q24H 8 Days Qty: 8 0RF metronidazole 500 mg Tablet 500 mg PO Q12H 8 Days Qty: 16 0RF thiamine HCl (vitamin B1) 100 mg tablet 100 mg PO DAILY 30 Days Qty: 30 0RF folic acid 1 mg tablet 1 mg PO DAILY 30 Days Qty: 30 0RF Continued naproxen 500 mg tablet 500 mg PO BID PRN (Reason: pain) 10 Days Qty: 20 0RF metformin 500 mg tablet 500 mg PO BID atorvastatin 10 mg tablet 10 mg PO DAILY metoprolol succinate 50 mg tablet extended release 24 hr 50 mg PO DAILY amlodipine 5 mg tablet 5 mg PO DAILY omeprazole 20 mg capsule,delayed release(DR/EC) 20 mg PO DAILY@0630 Discontinued cefuroxime axetil 500 mg tablet 500 mg PO BID Qty: 20 0RF doxycycline hyclate 100 mg tablet 100 mg PO BID Qty: 20 0RF <REBECCA Holbrook - Last Filed: 10/08/22 17:46> Discharge Orders: Discharge Order (Routine); Ordered 10/07/22 Ordered By: Ivana Rider <REBECCA Holbrook - Last Filed: 10/08/22 17:46> Diet: Advance to usual diet <REBECCA Holbrook - Last Filed: 10/08/22 17:46> Advance to usual diet <Ivana Rider NP - Last Filed: 10/07/22 09:58> Activity on Discharge: As tolerated <REBECCA Holbrook - Last Filed: 10/08/22 17:46> As tolerated <Ivana Rider NP - Last Filed: 10/07/22 09:58> Stand Alone Forms: Patient Portal Discharge page <REBECCA Holbrook - Last Filed: 10/08/22 17:46> Care Plan Goals: resolution of hand infection <REBECCA Holbrook - Last Filed: 10/08/22 17:46> Health Concerns: Right hand infection due to dog bite alcohol use disorder <REBECCA Holbrook - Last Filed: 10/08/22 17:46> Plan of Treatment: complete course of antibiotics as prescribed keep wound clean and dry. daily dressing changes, materials for dressings provided call to schedule follow up appointment in wound care clinic to closely monitor wound. recommend to completely avoid the use of alcohol follow up with bed availability at detox facility <REBECCA Holbrook - Last Filed: 10/08/22 17:46> Assessment: See discharge summary <REBECCA Holbrook - Last Filed: 10/08/22 17:46> Patient Instructions: Abuse of Alcohol (ED) <REBECCA Holbrook - Last Filed: 10/08/22 17:46> Discharge Date/Time: 10/07/22 13:27 <REBECCA Holbrook - Last Filed: 10/08/22 17:46>
--- NOTE | 2022-10-05 09:23 | P.PNIM_ITS ---
Subjective Subjective Date of Service: 10/05/22 Interval History: seen and examined this morning follow up for right hand wound no fevers, chills no overnight events Review of Systems Review of Systems: Yes all other systems are reviewed and are negative Constitutional Constitutional: Denies chills and Denies fever(s) Cardiovascular Cardiovascular: Denies chest pain, Denies palpitations and Denies dyspnea Respiratory Respiratory: Denies cough and Denies dyspnea Gastrointestinal Gastrointestinal: Denies abdominal pain, Denies nausea and Denies vomiting Endocrine Endocrine: Denies palpitations Physical Exam Vital Signs: Vital Signs: Last Vital Signs Temp 97.5 F 10/05/22 07:41 Pulse 66 10/05/22 07:41 Resp 16 10/05/22 07:41 BP 125/74 10/05/22 07:41 Pulse Ox 96 10/05/22 07:41 O2 Del Method Room Air 10/05/22 07:41 BMI result Body Mass Index 25.8 Const: General: cooperative, comfortable, alert and awake Nutritional Tona earance: average body habitus Orientation/consciousness: patient oriented x3 Resp: Effort & Inspection: normal respiratory effort and able to speak in complete sentences Auscultation: clear to auscultation bilaterally Cardio: Rate: regular rate Heart sounds: S1 normal heart sound present and S2 normal heart sound present GI: Inspection: No distended Palpation (GI): Soft to palpation and nontender Skin: Other: right hand wrapped in C/D/I dressing vitiligo hands, face Neuro: General: patient oriented x3 and CN's II-XI intact bilaterally Extrem: General: Yes no pedal edema Objective Data Active Medications Acetaminophen (Acetaminophen 325 Mg Tablet) 650 mg PO Q6H PRN PRN Reason: Pain, Mild (Pain Scale 1-3) Last Admin: 10/04/22 23:47 Dose: 650 mg Documented By: RAGHU Amlodipine Besylate (Amlodipine Besylate 5 Mg Tablet) 5 mg PO DAILY [facility]; Protocol Last Admin: 10/05/22 07:57 Dose: 5 mg Documented By: ASNTOS Atorvastatin Calcium (Atorvastatin Calcium 10 Mg Tablet) 10 mg PO DAILY [facility] Last Admin: 10/05/22 07:57 Dose: 10 mg Documented By: SANTOS Docusate Sodium (Docusate Sodium 100 Mg Capsule) 100 mg PO DAILY PRN PRN Reason: Constipation Fentanyl (Fentanyl Citrate/Pf 100 Mcg/2 Ml Vial) 25 mcg IVPUSH Q5M PRN; Protocol PRN Reason: Pain, Moderate (Pain Scale 4-6 Folic Acid (Folic Acid 1 Mg Tablet) 1 mg PO DAILY [facility] Last Admin: 10/05/22 07:57 Dose: 1 mg Documented By: SANTOS Glucose (Glucose Gel 15 Gm Gel..Gram.) 15 gm PO Q15M PRN; Protocol PRN Reason: per Hypoglycemia Standing Ord. Heparin Sodium (Porcine) (Heparin Sodium,Porcine 5,000 Unit/Ml Vial) 5,000 unit SUBCUT Q12H [facility] Last Admin: 10/05/22 04:15 Dose: 5,000 unit Documented By: RAGHU Dextrose (D10) 250 mls @ 750 mls/hr IV Q15M PRN; Protocol PRN Reason: per Hypoglycemia Standing Ord. Insulin Human Lispro (Insulin Lispro 100 Unit/Ml 3 Ml Vial) 0 unit SUBCUT QIDACHS [facility]; Protocol Last Admin: 10/05/22 07:58 Dose: 2 unit Documented By: SANTOS Levofloxacin (Levofloxacin 750 Mg Tablet) 750 mg PO Q24H [facility] Last Admin: 10/04/22 15:30 Dose: 750 mg Documented By: LEESA Metoprolol Succinate (Metoprolol Succinate Er 50 Mg Tab.Er.24h) 50 mg PO DAILY [facility]; Protocol Last Admin: 10/05/22 07:57 Dose: 50 mg Documented By: SANTOS Metronidazole (Metronidazole 500 Mg Tablet) 500 mg PO Q12H [facility] Last Admin: 10/05/22 05:18 Dose: 500 mg Documented By: RAGHU Omeprazole (Omeprazole 20 Mg Capsule.Dr) 20 mg PO DAILY@0630 [facility] Last Admin: 10/05/22 05:19 Dose: 20 mg Documented By: RAGHU Ondansetron HCl (Ondansetron Hcl 4 Mg/2 Ml Vial) 4 mg IVPUSH ONCE PRN PRN Reason: Nausea and Vomiting Pharmacy Consult (Consult Rx Etoh Phenob Im/Po) 1 each MISCELLANE ONCE PRN; Protocol PRN Reason: Consult order Phenobarbital (Phenobarbital 15 Mg Tablet) 15 mg PO DAILY [facility]; Protocol Stop: 10/06/22 09:01 Last Admin: 10/05/22 07:56 Dose: 15 mg Documented By: SANTOS Sodium Chloride (0.9 % Sodium Chloride Flush 3 Ml Syringe) 3 ml IVFLUSH QSHIFT [facility] Last Admin: 10/05/22 07:59 Dose: 3 ml Documented By: SANTOS Labs 10/02/22 05:34 10/02/22 05:34 Labs: Laboratory Results - last 24 hr 10/04/22 10/04/22 10/04/22 11:02 16:08 20:13 POC Glucose 99 128 H 142 H 10/05/22 07:27 POC Glucose 185 H Microbiology Microbiology Results: Microbiology 10/02/22 Unknown Gram Stain - Final Hand Right Routine Culture - Final Serratia marcescens Assessment and Plan (1) Alcoholic intoxication: Status: Acute (2) Deep wound due to dog bite: Status: Acute Plan 61-year-old male with history of jpq-qvrydal-jzinmwldy type 2 diabetes, hypertension, hyperlipidemia, and alcohol abuse presented to the ED admitted for infected dog bite and management of alcohol withdrawal. #Infected dog bite with cellulitis right hand Bit by unvaccinated dog about 2 months ago. Failed outpt abx with augmentin then ceftin/doxycycline No leukocytosis. ESR/CRP WNL. afebrile. Xray without acute osseous abnormality s/p debridement 10/02 blood cultures negative to date, wound cultures growing Serratia Marcescens -initially treated with Zosyn (started 09/30)- will transition to levofloxacin and Flagyl per ID recommendation for total 10 days -daily dressings changes, outpatient wound care follow up #Alcohol use disorder with acute intoxication Acutely intoxicated on arrival, at risk for severe withdrawal CIWA remains low -continue Phenobarbatol protocol -continue thiamine, folic acid supplementation -seen by addiction med - given resources # chronic macrocytic anemia H/ H stable, above transfusion threshold #Noninsulin dependent type 2 diabetes continue SSI, POCs, ADA diet -hold metformin #HTN BP under adequate control -continue home meds #HLD -continue statin #GERD -continue ppi DVT prophylaxis- heparin Full code attending-Dr. Queen Pt requires ongoing inpt stay for IV abx, wound care and management of acute alcohol withdrawal Time Spent With Patient Time: Total time managing care of this patient today ____ minutes. Quality Stroke Does the patient have a stroke diagnosis?: No VTE Prior VTE?: No VTE Risk Level:: Medical - moderate - high VTE Device Contraindication: Treatment Not Indicated VTE Drug Contraindication: N/A - Med Ordered
[2022-10-05 11:23] LABS: Glucose, Whole Blood 138 mg/dL (60-115)
--- NOTE | 2022-10-05 12:34 | MHC.CM.PN ---
Addendum entered by Jessi Saldivar 10/05/22 14:56: PT UNABLE TO REACH ANYONE IN HIS SEARCH FOR A PLACE TO STAY THE NIGHT PT NOW STATES HE WOULD LIKE TO DC TO A SKILLED NURSING CM UNABLE TO REACH SKILLED NURSING STAFF TO MAKE REFERRAL PT IS AWARE HE WILL DC TOMORROW MORNING, TO [facility] OR A [facility]UR[facility] HE WILL NEED TRANSPORT ARRANGED Original Note: CM HAS MET WITH PT SEVERAL TIMES OVER THE WEEKEND PT REPORTS HE IS NOW INTERESTED IN [facility] HE HAS ALSO MET WITH THE RECOVERY TEAM MULTIPLE TIMES DURING ADMISSION PT CALLED [facility] AND WAS INFORMED THEY WOULD NOT ADMIT HIM ON THE WEEKEND CM SPOKE WITH CURTIS AT [facility] WHO REQUESTED PTS H&P, RECENT ON'S, MED LIST, LABS, NOTES ABOUT HIS HAND, AND A COVID SWAB FROM WITHIN 24 HRS BE SENT. EVERYTHING BUT THE COVID TEST RESULTS WERE FAXED TO HER AT [phone] PT IS NOW CALLING HIS GIRLFRIEND TO DETERMINE IF HE CAN STAY WITH HER TONIGHT HE STATES HE WILL FOLLOW UP WITH [facility] TOMORROW FROM THE COMMUNITY PT ALSO DOES NOT HAVE TRANSPORT SO WILL NEED A LYFT ARRANGED ONCE HE KNOWS WHERE HE IS GOING AT DC
[2022-10-05] MEDS: Acetaminophen 325 MG TABLET 650 MG PO ×2 (14:22→20:33)
[2022-10-05 15:28] VITALS: BP 148/85; PULSE 77; RESP 18; TEMP 36.4; O2SAT 92
[2022-10-05] MEDS: levoFLOXacin 750 MG TABLET PO (15:52)
[2022-10-05 16:45] LABS: Glucose, Whole Blood 179 mg/dL (60-115)
[2022-10-05 19:12] VITALS: BP 130/74; PULSE 77; RESP 18; TEMP 36.9; O2SAT 98
[2022-10-05 19:47] LABS: Glucose, Whole Blood 97 mg/dL (60-115)
[2022-10-06 02:17] VITALS: BP 164/87; PULSE 79; RESP 16; TEMP 36.9; O2SAT 98
[2022-10-06] MEDS: Omeprazole 20 MG CAPSULE.DR PO (05:29)
[2022-10-06] MEDS: Heparin Sodium,Porcine 5,000 UNIT/ML VIAL 5000 UNIT SUBCUT ×2 (05:29→16:40)
[2022-10-06] MEDS: metroNIDAZOLE 500 MG TABLET PO ×2 (05:29→18:10)
[2022-10-06 07:31] LABS: Glucose, Whole Blood 139 mg/dL (60-115)
[2022-10-06 07:37] VITALS: BP 132/71; PULSE 95; RESP 20; TEMP 36.3; O2SAT 100
[2022-10-06] MEDS: PHENobarbitaL 15 MG TABLET PO (07:54)
[2022-10-06] MEDS: Metoprolol Succinate ER 50 MG TAB.ER.24H PO (07:54)
[2022-10-06] MEDS: Folic Acid 1 MG TABLET PO (07:54)
[2022-10-06] MEDS: 0.9 % Sodium Chloride Flush 3 ML SYRINGE IVFLUSH ×3 (07:55→23:14)
[2022-10-06] MEDS: Acetaminophen 325 MG TABLET 650 MG PO ×3 (07:55→23:20)
[2022-10-06] MEDS: Atorvastatin Calcium 10 MG TABLET PO (07:55)
[2022-10-06] MEDS: amLODIPine Besylate 5 MG TABLET PO (07:58)
[2022-10-06 08:37] VITALS: BMI 25.0
[2022-10-06 11:03] LABS: Glucose, Whole Blood 161 mg/dL (60-115)
[2022-10-06] MEDS: Insulin Lispro 100 UNIT/ML 3 ML VIAL SUBCUT ×2 (11:38→20:28)
--- NOTE | 2022-10-06 13:23 | MHC.RECOVRN ---
Spoke with Sydney at [facility], no [facility] bed available today. Pts referral is still under review for when a bed does become available. Pt encouraged to follow up from the community. Provider and CM aware.
--- NOTE | 2022-10-06 15:13 | MHC.CM.PN ---
Addendum entered by Soo Wells 10/06/22 16:36: DP fell through. Patient will stay overnight. A [facility] will be contacted 1st thing in the morning to obtain a bed for a safe discharge. Original Note: Discharge today. Plan is [facility]. They do not have a bed available today. Per Recovery nurse, Patient instructed to follow up with the referral from the community. DP Patient has arranged to stay with a friend. The friend will provide transport as well.
[2022-10-06 16:10] LABS: Glucose, Whole Blood 120 mg/dL (60-115)
--- NOTE | 2022-10-06 16:37 | P.PNIM_ITS ---
Subjective Subjective Date of Service: 10/06/22 Interval History: seen and examined this morning follow up for right hand wound no fevers, chills no overnight events Review of Systems Review of Systems: Yes all other systems are reviewed and are negative Constitutional Constitutional: Denies chills and Denies fever(s) Cardiovascular Cardiovascular: Denies chest pain, Denies palpitations and Denies dyspnea Respiratory Respiratory: Denies cough and Denies dyspnea Gastrointestinal Gastrointestinal: Denies abdominal pain, Denies nausea and Denies vomiting Endocrine Endocrine: Denies palpitations Physical Exam Vital Signs: Vital Signs: Last Vital Signs Temp 97.3 F 10/06/22 07:37 Pulse 95 10/06/22 07:37 Resp 20 10/06/22 07:37 BP 132/71 10/06/22 07:37 Pulse Ox 100 10/06/22 07:37 O2 Del Method Room Air 10/06/22 07:37 BMI result Body Mass Index 25.0 Appearing in no acute distress lung sounds are clear to auscultation heart regular rate rhythm, clear S1, S2 positive bowel sounds, abdomen is soft, nontender neuro patient is alert x3, no focal deficits [place] granulating tissue, to wrap in place Objective Data Active Medications Acetaminophen (Acetaminophen 325 Mg Tablet) 650 mg PO Q6H PRN PRN Reason: Pain, Mild (Pain Scale 1-3) Last Admin: 10/06/22 07:55 Dose: 650 mg Documented By: ADRIAN Amlodipine Besylate (Amlodipine Besylate 5 Mg Tablet) 5 mg PO DAILY [facility]; Pro tocol Last Admin: 10/06/22 07:58 Dose: 5 mg Documented By: ADRIAN Atorvastatin Calcium (Atorvastatin Calcium 10 Mg Tablet) 10 mg PO DAILY [facility] Last Admin: 10/06/22 07:55 Dose: 10 mg Documented By: ADRIAN Docusate Sodium (Docusate Sodium 100 Mg Capsule) 100 mg PO DAILY PRN PRN Reason: Constipation Fentanyl (Fentanyl Citrate/Pf 100 Mcg/2 Ml Vial) 25 mcg IVPUSH Q5M PRN; Protocol PRN Reason: Pain, Moderate (Pain Scale 4-6 Folic Acid (Folic Acid 1 Mg Tablet) 1 mg PO DAILY [facility] Last Admin: 10/06/22 07:54 Dose: 1 mg Documented By: ADRIAN Glucose (Glucose Gel 15 Gm Gel..Gram.) 15 gm PO Q15M PRN; Protocol PRN Reason: per Hypoglycemia Standing Ord. Heparin Sodium (Porcine) (Heparin Sodium,Porcine 5,000 Unit/Ml Vial) 5,000 unit SUBCUT Q12H [facility] Last Admin: 10/06/22 05:29 Dose: 5,000 unit Documented By: CARLOS Dextrose (D10) 250 mls @ 750 mls/hr IV Q15M PRN; Protocol PRN Reason: per Hypoglycemia Standing Ord. Insulin Human Lispro (Insulin Lispro 100 Unit/Ml 3 Ml Vial) 0 unit SUBCUT QIDACHS [facility]; Protocol Last Admin: 10/06/22 11:38 Dose: 2 unit Documented By: ADRIAN Levofloxacin (Levofloxacin 750 Mg Tablet) 750 mg PO Q24H [facility] Last Admin: 10/05/22 15:52 Dose: 750 mg Documented By: SANTOS Metoprolol Succinate (Metoprolol Succinate Er 50 Mg Tab.Er.24h) 50 mg PO DAILY [facility]; Protocol Last Admin: 10/06/22 07:54 Dose: 50 mg Documented By: ADRIAN Metronidazole (Metronidazole 500 Mg Tablet) 500 mg PO Q12H [facility] Last Admin: 10/06/22 05:29 Dose: 500 mg Documented By: CARLOS Omeprazole (Omeprazole 20 Mg Capsule.Dr) 20 mg PO DAILY@0630 [facility] Last Admin: 10/06/22 05:29 Dose: 20 mg Documented By: CARLOS Ondansetron HCl (Ondansetron Hcl 4 Mg/2 Ml Vial) 4 mg IVPUSH ONCE PRN PRN Reason: Nausea and Vomiting Pharmacy Consult (Consult Rx Etoh Phenob Im/Po) 1 each MISCELLANE ONCE PRN; Protocol PRN Reason: Consult order Sodium Chloride (0.9 % Sodium Chloride Flush 3 Ml Syringe) 3 ml IVFLUSH QSHIFT [facility] Last Admin: 10/06/22 15:34 Dose: 3 ml Documented By: CHITO Labs 10/02/22 05:34 10/02/22 05:34 Labs: Laboratory Results - last 24 hr 10/05/22 10/05/22 10/06/22 16:41 19:43 07:28 POC Glucose 179 H 97 139 H 10/06/22 10/06/22 11:00 16:01 POC Glucose 161 H 120 H Microbiology Microbiology Results: Microbiology 09/30/22 14:28 Blood Culture - Final Blood - Venous No growth after 5 days. 09/30/22 14:21 Blood Culture - Final Blood - Venous No growth after 5 days. Assessment and Plan (1) Alcoholic intoxication: Status: Acute (2) Deep wound due to dog bite: Status: Acute Plan 61-year-old male with history of bqp-ijrkytm-uyepduicd type 2 diabetes, hypertension, hyperlipidemia, and alcohol abuse presented to the ED admitted for infected dog bite and management of alcohol withdrawal. Infected dog bite with cellulitis right hand Bit by unvaccinated dog about 2 months ago. Failed outpt abx with augmentin then ceftin/doxycycline No leukocytosis. ESR/CRP WNL. afebrile. Xray without acute osseous abnormality s/p debridement 10/02 blood cultures negative to date, wound cultures growing Serratia Marcescens initially treated with Zosyn (started 09/30)- will transition to levofloxacin and Flagyl per ID recommendation for total 10 days daily dressings changes, outpatient wound care follow up Alcohol use disorder with acute intoxication Acutely intoxicated on arrival, at risk for severe withdrawal CIWA remains low continue Phenobarbatol protocol continue thiamine, folic acid supplementation seen by addiction med - given resources chronic macrocytic anemia H/ H stable, above transfusion threshold Noninsulin dependent type 2 diabetes continue SSI, POCs, ADA diet hold metformin HTN BP under adequate control continue home meds HLD continue statin GERD continue ppi DVT prophylaxis- heparin Full code attending-Dr. Quan GRISSOM dc when safe dispo Pt requires ongoing inpt stay for IV abx, wound care and management of acute alcohol withdrawal Time Spent With Patient Time: Total time managing care of this patient today ____ minutes. Quality Stroke Does the patient have a stroke diagnosis?: No VTE Prior VTE?: No VTE Risk Level:: Medical - moderate - high VTE Device Contraindication: Treatment Not Indicated VTE Drug Contraindication: N/A - Med Ordered
[2022-10-06 16:40] VITALS: BP 118/69; PULSE 90; RESP 20; TEMP 36.9; O2SAT 97
[2022-10-06] MEDS: levoFLOXacin 750 MG TABLET PO (16:40)
[2022-10-06 20:00] VITALS: BP 162/71; PULSE 83; RESP 18; TEMP 36.4; O2SAT 100
[2022-10-06 20:28] LABS: Glucose, Whole Blood 172 mg/dL (60-115)
[2022-10-07 03:53] VITALS: BP 123/64; PULSE 81; RESP 16; TEMP 36.2; O2SAT 98
[2022-10-07] MEDS: Heparin Sodium,Porcine 5,000 UNIT/ML VIAL 5000 UNIT SUBCUT (03:54)
[2022-10-07] MEDS: Omeprazole 20 MG CAPSULE.DR PO (05:33)
[2022-10-07] MEDS: metroNIDAZOLE 500 MG TABLET PO (05:33)
[2022-10-07] MEDS: Acetaminophen 325 MG TABLET 650 MG PO (05:33)
[2022-10-07 07:51] LABS: Glucose, Whole Blood 134 mg/dL (60-115)
[2022-10-07 08:18] VITALS: BP 141/73; PULSE 70; RESP 20; TEMP 36.5; O2SAT 95
[2022-10-07] MEDS: Metoprolol Succinate ER 50 MG TAB.ER.24H PO (10:19)
[2022-10-07] MEDS: Folic Acid 1 MG TABLET PO (10:20)
[2022-10-07] MEDS: Atorvastatin Calcium 10 MG TABLET PO (10:20)
[2022-10-07] MEDS: amLODIPine Besylate 5 MG TABLET PO (10:20)
--- NOTE | 2022-10-07 10:35 | MHC.CM.PN ---
Male 61yrs is discharged today. He has not arranged for housing. CM contacted several area shelters. [facility], [facility], [facility] and [facility] were all contacted. CM was not able to secure a bed. All [facility] stated that they were full with one exception. The [facility] hours are 6pm-7am, contact info was provided. No reservations required. Pt instructed Line up 5pm. Bus passes have been provided. A gift card to the coffee shop was given. Dressing supplies were also provided. Patient declined food offer. Patient verbalized understanding of all instructions provided.
== END 2022-10-07 13:27 | disposition home or self-care (01) | DRG 383 ==
LOC: HO.ED 09-30 14:14 → HO.EDOVER 09-30 15:06 → HO.S3 09-30 16:03
PROVIDERS: Orthopaedic Surgery; Physician Assistant; Physician Assistant Medical; Admitting Provider Physician Assistant; Emergency Provider Internal Medicine; PCP Internal Medicine; Visit Provider Nurse Practitioner Acute Care
PROC: 0HBFXZZ Excision of Right Hand Skin, External Approach (ICD-10-PCS; principal; 2022-10-02 11:40)
DX: L03.113 Cellulitis of right upper limb (principal); I96 Gangrene, not elsewhere classified; E11.9 Type 2 diabetes mellitus without complications; E78.5 Hyperlipidemia, unspecified; F10.129 Alcohol abuse with intoxication, unspecified; D53.9 Nutritional anemia, unspecified; I10 Essential (primary) hypertension; K21.9 Gastro-esophageal reflux disease without esophagitis; S61.451S Open bite of right hand, sequela; W54.0XXS Bitten by dog, sequela; Z59.02 Unsheltered homelessness; Z20.822 Contact with and (suspected) exposure to COVID-19; Z91.148 Patient's other noncompliance with medication regimen for other reason; Z91.199 Patient's noncompliance with other medical treatment and regimen due to unspecified reason; Z87.891 Personal history of nicotine dependence; Z79.84 Long term (current) use of oral hypoglycemic drugs; Z79.899 Other long term (current) drug therapy
CPT/HCPCS: 0241U; 36415; 73120; 80048; 80307; 81001; 82607; 82746; 82947; 83605; 85025; 85652; 86140; 87040; 87070; 87077; 87186; 87205; 99285; J0690; J1100; J1643; J2250; J2405; J2543; J2560; J2795; J3010; J3411

== ENCOUNTER 2022-10-15 20:05 | Emergency (ER) | payer OTHER, SELFPAY ==
[2022-10-15 20:08] VITALS: BP 147/79; PULSE 99; O2SAT 96
[2022-10-15 20:26] VITALS: BP 104/47; PULSE 96; RESP 18; TEMP 36.4; O2SAT 98; BMI 24.4
--- NOTE | 2022-10-15 21:00 | PC.NURSE ---
Provider at bedside cleaning and dressing wound on right hand.
--- NOTE | 2022-10-15 21:13 | ED.ALCOHOL ---
HPI - Alcohol General Chief Complaint: Fall Stated Complaint: ETOH/FALL,ARM PAIN Time Seen by Provider: 10/15/22 20:23 Source: patient Mode of arrival: EMS Limitations: no limitations History of Present Illness HPI narrative: Patient alcoholic frequent ED visits chronic wound on the right hand after a dog bite in 07/2022 comes here for wound recheck apparently patient fell outside a liquor store denies any significant injuries ambulatory in the ER Related Data Home Medications Medication Instructions Recorded Confirmed amlodipine 5 mg tablet 5 mg PO DAILY 09/30/22 09/30/22 atorvastatin 10 mg tablet 10 mg PO DAILY 09/30/22 09/30/22 metformin 500 mg tablet 500 mg PO BID 09/30/22 09/30/22 metoprolol succinate 50 mg 50 mg PO DAILY 09/30/22 09/30/22 tablet,extended release 24 hr omeprazole 20 mg capsule,delayed 20 mg PO DAILY@0630 09/30/22 09/30/22 release Previous Rx's Medication Instructions Recorded naproxen 500 mg tablet 500 mg PO BID PRN pain 10 days #20 08/25/22 tabs folic acid 1 mg tablet 1 mg PO DAILY 30 days #30 tabs 10/05/22 levofloxacin 750 mg tablet 750 mg PO Q24H 8 days #8 tabs 10/05/22 metronidazole 500 mg tablet 500 mg PO Q12H 8 days #16 tabs 10/05/22 thiamine HCl (vitamin B1) 100 mg 100 mg PO DAILY 30 days #30 tabs 10/05/22 tablet Allergies Allergy/AdvReac Type Severity Reaction Status Date / Time bee pollen [BEE STINGS] Allergy Intermediate SWELLING Verified 10/02/22 10:39 polyethylene glycol Allergy Unknown Swelling Verified 10/02/22 10:39 [Golytely] Review of Systems Review of Systems: Yes all other systems are reviewed and are negative PMF Past Medical History Medical History Alcohol use disorder Diabetes GERD (gastroesophageal reflux disease) HTN (hypertension) Surgical History History of colonoscopy History of endoscopy Hx of pelvic surgery Social History Social History Household Members: None Housing: Homeless Alcohol intake: current Alcohol intake frequency: a few times a week Alcohol type: beer Patient Tobacco Use Status: Former Tobacco user Quit Date: 1999 Tobacco use type: Cigarette Years Smoked: 3 Second Hand Smoke Exposure: No Advance Directives: No Advance Directives Information Provided: No service: No Current occupational status: unemployed 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 Oriented X3. No acute distress. Intoxicated Eyes: PERRLA, No Nystagmus ENT: Pharynx normal. Oral Mucosa moist Neck: Normal inspection. Neck supple. CVS: Normal heart rate and rhythm. Pulses normal. Respiratory: No respiratory distress. Equal air entry bilateral, no wheezing/rales/rhonchi Abdomen: Soft and nontender. Bowel sounds are present, no mass palpable, no CVA tenderness Skin: Skin warm and dry. Normal skin color. Normal skin turgor. Extremities: No lower extremity edema. No calf tenderness healing wound right dorsum of the hand Neuro: Oriented X 3. No motor deficit. No sensory deficit.No cerebellar signs , cranial nerves II-XII intact fairly stable gait Medical Decision Making Medical Decision Making MDM Narrative: Patient healing wound of the right hand from dog bite was clean and bacitracin applied and dressing was applied patient to discharge home tomorrow to detox Medications Administered Discontinued Medications Generic Name Dose Route Start Last Admin Trade Name Freq PRN Reason Stop Dose Admin Bacitracin 1 appl 10/15/22 20:55 10/15/22 21:32 Bacitracin Oint 0.9 Gm Packet TOPICAL 10/15/22 20:56 1 appl ONCE ONE Administration Protocol Discharge Plan Discharge Clinical Impression: Alcohol intoxication in active alcoholic, Healing wound Patient Disposition: Home, Self-Care Instructions: Abuse of Alcohol (ED), Chronic Wounds (ED) Additional Instructions: Stop drinking alcohol Wound care as advised Prescriptions: No Action naproxen 500 mg tablet 500 mg PO BID PRN (Reason: pain) 10 Days Qty: 20 0RF metformin 500 mg tablet 500 mg PO BID atorvastatin 10 mg tablet 10 mg PO DAILY metoprolol succinate 50 mg tablet extended release 24 hr 50 mg PO DAILY amlodipine 5 mg tablet 5 mg PO DAILY omeprazole 20 mg capsule,delayed release(DR/EC) 20 mg PO DAILY@0630 levofloxacin 750 mg Tablet 750 mg PO Q24H 8 Days Qty: 8 0RF metronidazole 500 mg Tablet 500 mg PO Q12H 8 Days Qty: 16 0RF thiamine HCl (vitamin B1) 100 mg tablet 100 mg PO DAILY 30 Days Qty: 30 0RF folic acid 1 mg tablet 1 mg PO DAILY 30 Days Qty: 30 0RF Interventions: ED Discharge Assessment Last Done: 10/15/22 21:33
[2022-10-15] MEDS: Bacitracin Oint 0.9 GM PACKET 1 APPL TOPICAL (21:32)
--- NOTE | 2022-10-15 21:32 | PC.NURSE ---
Discharge instructions reviewed with pt. Pt verbalizes understanding.
[2022-10-16 02:29] VITALS: BP 119/62; PULSE 100; RESP 16; TEMP 36.3; O2SAT 97
--- NOTE | 2022-10-16 02:53 | MHC.EDTECH ---
PATIENT WENT FOR A WALK WITH THIS PCT ,PATIENT GAIT IN UNSTEADY ,BENJAMIN FRANCOIS AND DIRECTOR OF SECURITIES AND [employer] KAREN IS AWARE .
--- NOTE | 2022-10-16 05:59 | PC.NURSE ---
pt awake ambulates with steady gait. oob to bathroom and ready for discharge.
== END 2022-10-16 06:01 | disposition home or self-care (01) ==
PROVIDERS: Emergency Provider Internal Medicine
DX: F10.220 Alcohol dependence with intoxication, uncomplicated (principal); Y90.9 Presence of alcohol in blood, level not specified; M79.641 Pain in right hand; S61.451D Open bite of right hand, subsequent encounter; W54.0XXD Bitten by dog, subsequent encounter
CPT/HCPCS: 99283

== ENCOUNTER 2022-10-16 18:40 | Emergency (ER) | payer OTHER, SELFPAY ==
[2022-10-16 18:48] VITALS: BP 122/56; BP 142/60; PULSE 91; PULSE 92; RESP 18; TEMP 36.6; O2SAT 100; O2SAT 98; BMI 25.8
[2022-10-16 20:13] LABS: Amphetamine Screen Urine Not Detected (Not Detect); Barbiturates, Urine Not Detected (Not Detect); Benzodiazepines Screen Urine Not Detected (Not Detect); Cannabinoid Screen Urine Not Detected (Not Detect); Cocaine Screen Urine Not Detected (Not Detect); Ethanol 336 mg/dL; Fentanyl, urine Not Detected (Not Detect); Opiate Screen Urine Not Detected (Not Detect); Phencyclidine Screen Urine Not Detected (Not Detect)
[2022-10-16] MEDS: Bacitracin Oint 0.9 GM PACKET 1 APPL TOPICAL (20:18)
--- NOTE | 2022-10-16 20:23 | PC.NURSE ---
Pt ca&ox3. Pt reports no chest pain or SOB. No sign of distress. Pt requested food. Pt provided with food. health care administrator per aug. Pt resting comfortably. Will continue to monitor.
[2022-10-16 20:32] VITALS: BP 104/89; PULSE 92; RESP 16; TEMP 36.4; O2SAT 100
--- NOTE | 2022-10-16 20:37 | ED.ALCOHOL ---
HPI - Alcohol General Chief Complaint: ETOH/Substance Use Stated Complaint: R HAND PAIN Time Seen by Provider: 10/16/22 19:03 Source: patient and EMS Mode of arrival: EMS History of Present Illness HPI narrative: 61-year-old male with right vulvar via ambulance for alcohol intoxication and complaining right hand pain that patient states he sustained after a dog bite in July. Related Data Home Medications Medication Instructions Recorded Confirmed amlodipine 5 mg tablet 5 mg PO DAILY 09/30/22 09/30/22 atorvastatin 10 mg tablet 10 mg PO DAILY 09/30/22 09/30/22 metformin 500 mg tablet 500 mg PO BID 09/30/22 09/30/22 metoprolol succinate 50 mg 50 mg PO DAILY 09/30/22 09/30/22 tablet,extended release 24 hr omeprazole 20 mg capsule,delayed 20 mg PO DAILY@0630 09/30/22 09/30/22 release Previous Rx's Medication Instructions Recorded naproxen 500 mg tablet 500 mg PO BID PRN pain 10 days #20 08/25/22 tabs folic acid 1 mg tablet 1 mg PO DAILY 30 days #30 tabs 10/05/22 levofloxacin 750 mg tablet 750 mg PO Q24H 8 days #8 tabs 10/05/22 metronidazole 500 mg tablet 500 mg PO Q12H 8 days #16 tabs 10/05/22 thiamine HCl (vitamin B1) 100 mg 100 mg PO DAILY 30 days #30 tabs 10/05/22 tablet Allergies Allergy/AdvReac Type Severity Reaction Status Date / Time bee pollen [BEE STINGS] Allergy Intermediate SWELLING Verified 10/02/22 10:39 polyethylene glycol Allergy Unknown Swelling Verified 10/02/22 10:39 [Golytely] Review of Systems Review of Systems: Pertinent positives and negatives as stated in HPI PMFSH Past Medical History Source: nursing notes reviewed Medical History Alcohol use disorder Diabetes GERD (gastroesophageal reflux disease) HTN (hypertension) Surgical History History of colonoscopy History of endoscopy Hx of pelvic surgery Social History Social History Household Members: None Housing: Homeless Alcohol intake: current Alcohol intake frequency: a few times a week Alcohol type: beer Patient Tobacco Use Status: Former Tobacco user Quit Date: 1999 Tobacco use type: Cigarette Years Smoked: 3 Smoked in Last 30 Days: No Second Hand Smoke Exposure: No Advance Directives: Yes Advance Directives on File: Yes Advance Directives Date on File: 10/08/22 service: No Current occupational status: unemployed 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 GENERAL: Well developed, well nourished, in no acute distress. HEAD: Normocephalic/atraumatic EYES: PERRLA, EOMI EARS: Ext canals without abnormality NOSE: Nares patent bilateral OROPHARYNX: no oral lesions noted, posterior pharynx clear NECK: Supple, no adenopathy LUNGS: Normal breath sounds. No adventitious sounds or accessory muscle use. SpO2<100> CARDIOVASCULAR: Regular rate and rhythm without noted murmurs ABDOMEN: Soft, non-tender, non-distended with bowel sounds. MUSCULOSKELETAL: No tenderness, deformities, or effusions noted on gross inspection. EXTREMITIES: No cyanosis, clubbing or edema. Patient has scattered eschars on his upper extremities that appear to be related to self-inflicted scratching. RIGHT HAND: There is a healing wound to the ulnar side of the hand that does not appear to have additional a erythema or induration or swelling to suggest infection. SKIN: Inspection of the skin reveals no rashes, but noted vitiligo NEUROLOGIC: Alert and oriented x 3. Strength and sensation to light touch were grossly intact x 4. Medical Decision Making Medical Decision Making MDM Narrative: 61-year-old male with history and clinical presentation consistent with alcohol intoxication and likely alcohol use disorder. Patient is otherwise hemodynamically stable, the right hand will have bacitracin and a dressing applied but otherwise there is no at evidence to suggest cellulitis. On review of investigations patient is noted to have a BAL-336, he is placed on a CIWA and will remain in the emergency room until clinically appropriate. Patient placed in physician observation because the patient needed more time for sobriety. At the time observation was started the patient's vital signs were stable, patient is alert and oriented, neuro: Nonfocal, CV RRR, lungs clear Differential Diagnosis Please see the discussion above Lab Data Labs: Lab Results 10/16/22 10/16/22 Range/Units 19:53 19:53 Urine Opiates Screen Not Detected (Not Detect) Urine Fentanyl Screen Not Detected (Not Detect) Ur Barbiturates Screen Not Detected (Not Detect) Ur Phencyclidine Scrn Not Detected (Not Detect) Ur Amphetamines Screen Not Detected (Not Detect) U Benzodiazepines Scrn Not Detected (Not Detect) Urine Cocaine Screen Not Detected (Not Detect) U Marijuana (THC) Screen Not Detected (Not Detect) Ethyl Alcohol 336 H* mg/dL Medications Administered Discontinued Medications Generic Name Dose Route Start Last Admin Trade Name Freq PRN Reason Stop Dose Admin Bacitracin 1 appl 10/16/22 19:46 10/16/22 20:18 Bacitracin Oint 0.9 Gm Packet TOPICAL 10/16/22 19:47 1 appl ONCE ONE Administration Protocol Discharge Plan Discharge Clinical Impression: Alcoholic intoxication, Healing wound, Alcohol use disorder Patient Disposition: Still a Patient Prescriptions: No Action naproxen 500 mg tablet 500 mg PO BID PRN (Reason: pain) 10 Days Qty: 20 0RF metformin 500 mg tablet 500 mg PO BID atorvastatin 10 mg tablet 10 mg PO DAILY metoprolol succinate 50 mg tablet extended release 24 hr 50 mg PO DAILY amlodipine 5 mg tablet 5 mg PO DAILY omeprazole 20 mg capsule,delayed release(DR/EC) 20 mg PO DAILY@0630 levofloxacin 750 mg Tablet 750 mg PO Q24H 8 Days Qty: 8 0RF metronidazole 500 mg Tablet 500 mg PO Q12H 8 Days Qty: 16 0RF thiamine HCl (vitamin B1) 100 mg tablet 100 mg PO DAILY 30 Days Qty: 30 0RF folic acid 1 mg tablet 1 mg PO DAILY 30 Days Qty: 30 0RF
[2022-10-16 22:08] VITALS: BP 110/50; PULSE 94; RESP 18; TEMP 36.4; O2SAT 95
--- NOTE | 2022-10-16 22:13 | PC.NURSE ---
Pt resting comfortably. No signs of distress. Will continue to monitor.
--- NOTE | 2022-10-16 23:27 | PC.NURSE ---
Pt resting comfortably. No signs of distress. Will continue to monitor.
[2022-10-17 00:50] VITALS: BP 115/57; PULSE 95; RESP 17; TEMP 36.9
--- NOTE | 2022-10-17 02:01 | PC.NURSE ---
Pt resting comfortably. No signs of distress. Will continue to monitor.
[2022-10-17 04:04] VITALS: BP 114/61; PULSE 96; RESP 18; TEMP 36.6; O2SAT 94
--- NOTE | 2022-10-17 07:17 | PC.NURSE ---
assumed care of this pt at 0700. pt in no apparent distress, resting peacefully on stretcher, sleeping. rr even/unlabored. wctm
[2022-10-17] MEDS: chlordiazePOXIDE HCl 25 MG CAPSULE 50 MG PO ×2 (10:24→16:21)
[2022-10-17 10:27] VITALS: BP 157/119; PULSE 91; RESP 16; TEMP 36.7; O2SAT 96
--- NOTE | 2022-10-17 10:39 | PC.NURSE ---
medicated per emar, care team at bedside for eval
--- NOTE | 2022-10-17 10:49 | PC.NURSE ---
care team sts pt is going to be a detox search
--- NOTE | 2022-10-17 10:50 | MHC.RECOVSUP ---
Met with pt in ED18 for potential ATS bed search. Pt reports having detoxed while here over 1 week ago and since then has been drinking about 4-5 24oz beers a day and is interested in ATS. Pt is willing to go to any ATS facility preferably local. Pt has no other questions or concerns at this time.
[2022-10-17 11:28] LABS: Glucose, Whole Blood 135 mg/dL (60-115)
[2022-10-17 14:27] VITALS: BP 153/77; PULSE 104; RESP 20; TEMP 36.6; O2SAT 97
--- NOTE | 2022-10-17 15:32 | MHC.RECOVSUP ---
ATS bed search exhausted, pt was provided recovery resources to follow up from home.
[2022-10-17] MEDS: Ibuprofen 800 MG TABLET PO (16:48)
--- NOTE | 2022-10-17 17:14 | MHC.RECOVSUP ---
[facility] Accepted pt for ATS, [facility] ordered for 6pm pickup.
== END 2022-10-17 18:15 | disposition home or self-care (01) ==
PROVIDERS: Student in an Organized Health Care Education/Training Program; Emergency Provider Emergency Medicine
DX: F10.220 Alcohol dependence with intoxication, uncomplicated (principal); Y90.8 Blood alcohol level of 240 mg/100 ml or more; M79.641 Pain in right hand; S61.451D Open bite of right hand, subsequent encounter; W54.0XXD Bitten by dog, subsequent encounter; E11.9 Type 2 diabetes mellitus without complications; I10 Essential (primary) hypertension; Z79.84 Long term (current) use of oral hypoglycemic drugs; Z79.02 Long term (current) use of antithrombotics/antiplatelets; Z79.899 Other long term (current) drug therapy
CPT/HCPCS: 36415; 80307; 82947; 99285